=== PATIENT | female | born 1935 | race Caucasian/White ===

== ENCOUNTER 2016-03-06 16:01 | Emergency (ER) | payer OTHER, MEDICARE ==
[~2016-03-06] VITALS: Ht 154.9 cm; Wt 55.3 kg
[~2016-03-06 16:01] MED LIST: FARXIGA5 M1; FLEXERIL 5MG TAB5 MG PO; JARDIANCE10 M1 PO; METFORMIN HCL500 M4 PO; MOEXIPRIL HCL15 MG PO; MOTRIN 600 MG600 MG PO; NEXIUM40 M1 PO; SIMVASTATIN40 M1 PO; VITAMIN D250000 UNIT PO
[2016-03-06 16:17] VITALS: BP 150/64
--- NOTE | 2016-03-06 17:24 | ED GI/GU/ABDOMINAL COMPLAINT ---
History of Present Illness General Chief Complaint: Abdominal Pain/Flank Pain Stated Complaint: ABDOM PAIN Source: patient, family, old records Exam Limitations: no limitations Vital Signs & Intake/Output Vital Signs & Intake/Output Vital Signs Date Time Temp Pulse Resp B/P Pulse O2 O2 Flow FiO2 Ox Delivery Rate 03/06 1617 98.0 65 18 150/64 99 Room Air Allergies Coded Allergies: NO KNOWN ALLERGIES (11/01/12) Reconcile Medications Dapagliflozin Propanediol (Farxiga) (Unknown Strength) TABLET (Unknown Dose) UNKNOWN (Reported) Ergocalciferol (Vitamin D2) (Vitamin D2) 50,000 UNIT CAPSULE 1 CAP PO Q30D SUPPLEMENT (Reported) Esomeprazole (Nexium) 40 MG CAPSULE.DR 1 CAP PO DAILY GI (Reported) Metformin HCl (Metformin HCl ER) 500 MG TAB.ER.24H 2 TAB PO BID DIABETES ( Reported) Moexipril HCl 15 MG TABLET 0.5 TAB PO QPM BP (Reported) Simvastatin (Simvastatin*) 40 MG TABLET 1 TAB PO QPM CHOLESTEROL (Reported) Triage Note: PT TO ED FOR RUQ ABD PAIN SINCE YESTERDAY, REPORTS SHE WAS SEEN IN JANUARY FOR SIMILAR ISSUES, F/U WITH GI OUTPATIENT AND WAS TOLD SHE HAS "SLUDGE". PT REPORTING INTERMITTENT, CRAMPY ABD PAIN, CURRENTLY PAIN FREE. REPORTING TWO EPISODES OF LUDWIG STOOLS LAST NIGHT AND ONE TODAY, REPORTING PAIN IS WORSE AFTER EATING AND BETTER AFTER USING BATHROOM, DENIES BRB, NAUSEA, VOMITING, CP, SOB, MALDONADO. Triage Nurses Notes Reviewed? yes ? N Is pt currently ? No Onset: Gradual Duration: week(s): (FEW) Timing: recent history Quality/Severity: mild Activities at Onset: FOUND ELEVATED LFT'S ON PREVIOUS ED VISIT, FOLLOWING UP WITH DR LEANNE CERDA No Modifying Factors: none Associated Symptoms: LIGHT COLORED STOOLS X 2 DAYS HPI: This is an 80-year-old female presents to the ER with her granddaughter for chief complaint of light colored stools today and yesterday. History of the patient is that she had elevated liver function tests in the end of January. She was seen in the emergency department and taken off her statin medications. After that they followed up with Dr. Cerda in the office approximately 1-1/2 weeks ago although the LFTs are trending down he noted an outpatient CAT scan which showed a potential obstruction between the pancreas and the common bile duct. She states that her grandmother was due to go to custodial for an endoscopic ultrasound but when she had light colored stools today decided to bring her here for evaluation. She states that she put a call in to GI. No fever or chills. Diminished appetite and some malaise. No confusion. Past History Travel History Traveled to [place] past 21 day No Medical History Any Pertinent Medical History? see below for history Neurological: NONE EENT: NONE Cardiovascular: hypertension, hyperlipidemia Respiratory: NONE Gastrointestinal: NONE Hepatic: NONE Renal: NONE Musculoskeletal: OSTEOPOROSIS Psychiatric: NONE Endocrine: diabetes Blood Disorders: NONE Cancer(s): NONE [employer]/Reproductive: NONE Surgical History Surgical History: non-contributory Psychosocial History Who do you live with Patient/Self What is your primary language Gibraltarian Tobacco Use: Never used ETOH Use: denies use Illicit Drug Use: denies illicit drug use Family History Hx Contributory? No Review of Systems Review of Systems Constitutional: Reports: malaise, weakness. Denies: chills, fever. EENTM: Reports: no symptoms. Respiratory: Denies: cough, short of breath, sputum production. Cardiovascular: Denies: chest pain, palpitations. GI: Reports: see HPI (LIGHT STOOLS), abdominal pain, nausea. Denies: vomiting. Genitourinary: Denies: discharge, dysuria, frequency. Musculoskeletal: Reports: no symptoms. Skin: Reports: no symptoms. Neurological/Psychological: Reports: no symptoms. Hematologic/Endocrine: Denies: bruising, bleeding, polyuria, polydipsia. Immunologic/Allergic: Denies: splenectomy. All Other Systems: Reviewed and Negative Physical Exam Physical Exam General Appearance: well developed/nourished, alert, awake, anxious Head: atraumatic, normal appearance Eyes: Bilateral: normal appearance, PERRL, EOMI. Ears, Nose, Throat, Mouth: hearing grossly normal, dental injury, moist mucous membrane Neck: normal inspection, supple, full range of motion Respiratory: normal breath sounds, chest non-tender, no respiratory distress Cardiovascular: regular rate/rhythm Peripheral Pulses: 2+ radial (R), 2+ radial (L) Gastrointestinal: normal bowel sounds, soft, non-tender Extremities: normal range of motion, evidence of injury Neurologic/Psych: no motor/sensory deficits, awake, alert, oriented x 3 Skin: intact, normal color, warm/dry Core Measures ACS in differential dx? No Severe Sepsis Present: No Septic Shock Present: No Progress Differential Diagnosis: CHOLELITHIASIS, CHOLEDOCHOLITHIASIS, PANCREATIC MASS, BILIARY OBSTRUCTION Plan of Care: Orders Procedure Date/time Status EKG 03/06 1735 Active PARTIAL THROMBOPLASTIN TIME 03/06 173 Complete PROTHROMBIN TIME 03/06 173 Complete LIPASE 03/06 173 Complete COMPREHENSIVE METABOLIC PANEL 03/06 1734 Complete CBC WITHOUT DIFFERENTIAL 03/06 1734 Complete CULTURE,URINE 03/06 172 Active URINALYSIS 03/06 1726 Complete Laboratory Tests 03/06/16 1745: Anion Gap 9, Estimated GFR > 60, BUN/Creatinine Ratio 20.0, Glucose 193 H, Calcium 9.3, Total Bilirubin 0.7, AST 45 H, ALT 61 H, Alkaline Phosphatase 465 H, Total Protein 6.7, Albumin 3.6, Globulin 3.1, Albumin/Globulin Ratio 1.2, Lipase 22 L, PT 14.3 H, INR 1.37 H, APTT 36, CBC w Diff NO MAN DIFF REQ, RBC 3.83 L, MCV 86.7, MCH 28.6, RDW 14.2, MPV 8.6, Gran % 75.0, Lymphocytes % 16.4 L, Monocytes % 6.8, Eosinophils % 1.5, Basophils % 0.3, Absolute Granulocytes 6.0, Absolute Lymphocytes 1.3, Absolute Monocytes 0.5, Absolute Eosinophils 0.1, Absolute Basophils 0, PUBS MCHC 33.0 03/06/161729: Urine Color YEL, Urine Clarity CLEAR, Urine pH 6.5, Ur Specific Mercer <= 1.005 , Urine Protein NEG, Urine Ketones NEG, Urine Nitrite NEG, Urine Bilirubin NEG, Urine Urobilinogen 0.2, Ur Leukocyte Esterase TRACE H, Ur Microscopic SEDIMENT EXAMINED, Urine WBC RARE, Ur Epithelial Cells RARE, Urine Hemoglobin NEG, Urine Glucose NEG Microbiology 03/06 1729 URINE ROUT: Urine Culture - [facility] LABS, EKG DONE. LFT'S TRENDING DOWN FROM THE LAST VISIT. NO FEVER, CHILLS OR SIGNS OF INFECTION. DISCUSSED CT RESULTS DONE OUT PATIENT WITH HARRIET'ERIN BLAS. SUSPECT PANCREATIC MASS. PATIENT IS SCHEDULED FOR OUTPATIENT EUS AT [facility]. DISCUSSED WITH DR LEANNE CERDA. (CHIQUIS JEAN,ROSIBEL) Initial ED EKG: NSR Prior EKG: unchanged Departure Departure Time of Disposition: 1850 Disposition: HOME OR SELF CARE Condition: Stable Clinical Impression Primary Impression: Elevated liver function tests Referrals: KAREN JEAN,CATINA Ridley (PCP/Family) SHAILESH CERDA MD Additional Instructions: FOLLOW UP WITH ENDOSCOPIC ULTRASOUND AT [facility] AND THEN WITH DR CERDA IN THE OFFICE. RETURN NEEDED. Departure Forms: Customer Survey General Discharge Information
[2016-03-06 18:03] LABS: ABSOLUTE BASOPHIL COUNT 0 /CUMM (0.0-0.2); ABSOLUTE EOSINOPHIL COUNT 0.1 /CUMM (0.0-0.7); ABSOLUTE LYMPH COUNT 1.3 /CUMM (1.2-3.4); ABSOLUTE MONOCYTE COUNT 0.5 /CUMM (0.10-0.60); BASOPHIL % 0.3 % (0.0-2.0); EOSINOPHIL % 1.5 % (0-5); HEMATOCRIT 33.2 % (37-47); MEAN CORPUSCULAR HGB 28.6 PG (27.0-31.0); MEAN CORPUSCULAR VOLUME 86.7 FL (81.0-99.0); MEAN PLATELET VOLUME 8.6 FL (7.4-10.4); PLATELET COUNT 268 /CUMM (130-400); RBC DISTRIBUTION WIDTH 14.2 % (11.5-14.5); RED BLOOD CELL CT 3.83 /CUMM (4.20-5.40)
[2016-03-06 18:07] LABS: PT 14.3 SEC (9.4-12.5); PTT 36 SEC (25-37)
== END 2016-03-06 19:06 ==
LOC: ERH 16:01
PROVIDERS: Emergency Medicine
DX: R79.89 Other specified abnormal findings of blood chemistry (principal)
CPT/HCPCS: 81001; 87086; 93005; 93010

== ENCOUNTER 2016-05-02 02:13 | Inpatient (IN) | payer OTHER, MEDICARE ==
[~2016-05-02] VITALS: Ht 152.4 cm; Wt 49.0 kg
--- NOTE | 2016-05-02 02:32 | NUR ---
TRIAGE: PT TO ER WITH SON C/C FEVER, ONSET 01:00. SON STATES HIS SISTER CHECKED HER FOR INCONTINENCE AND FOUND HER TO BE FEVERISH. SPOKE WITH DR GRIJALVA WHO ADVISED TO COME TO ER FOR EVAL. PT PMHX INCLUDES PANCREATIC CANCER. SEES DR HYDE AT [facility] FOR TREATMENT. LAST DOSE OF CHEMO WAS ON 04/23/2016.
--- NOTE | 2016-05-02 02:32 | NUR ---
Informed waiting has been performed.
--- NOTE | 2016-05-02 02:41 | NUR ---
PT TO ROOM 3 VIA WHEELCHAIR WITH DAUGHTERS. ASSISTED INTO HOSPITAL GOWN. PT WARM TO TOUCH. FEBRILE IN TRIAGE (101.2).
--- NOTE | 2016-05-02 02:48 | ED GENERAL ADULT ---
History of Present Illness General Chief Complaint: Fever Stated Complaint: PT OF [facility] ON CHEMO SENTIN BY DR GRIJALVA C/O FEVER Source: patient, dada - oncology fellow from [facility] Exam Limitations: no limitations Vital Signs & Intake/Output Vital Signs & Intake/Output Vital Signs Date Time Temp Pulse Resp B/P Pulse O2 O2 Flow FiO2 Ox Delivery Rate 05/04 0716 97.7 61 20 162/66 97 05/03 2223 97.5 61 20 132/72 98 05/03 1458 97.9 68 18 102/51 98 Room Air ED Intake and Output 05/04 0000 05/03 1200 Intake Total 1000 120 Output Total 350 Balance 1000 -230 Intake, Oral 1000 120 Output, Urine 350 Allergies Coded Allergies: NO KNOWN ALLERGIES (05/02/16) dapagliflozin (From FARXIGA) (Intermediate, CONFUSION 05/02/16) Reconcile Medications Dapagliflozin Propanediol (Graveyard Pizzaxiga) (Unknown Strength) TABLET (Unknown Dose) UNKNOWN (Reported) Ergocalciferol (Vitamin D2) (Vitamin D2) 50,000 UNIT CAPSULE 1 CAP PO Q30D SUPPLEMENT (Reported) Esomeprazole (Nexium) 40 MG CAPSULE.DR 1 CAP PO DAILY GI (Reported) Metformin HCl (Metformin HCl ER) 500 MG TAB.ER.24H 2 TAB PO BID DIABETES ( Reported) Moexipril HCl 15 MG TABLET 0.5 TAB PO QPM BP (Reported) Simvastatin (Simvastatin*) 40 MG TABLET 1 TAB PO QPM CHOLESTEROL (Reported) Triage Note: TRIAGE: PT TO ER WITH SON C/C FEVER, ONSET 01:00. SON STATES HIS SISTER CHECKED HER FOR INCONTINENCE AND FOUND HER TO BE FEVERISH. SPOKE WITH DR GRIJALVA WHO ADVISED TO COME TO ER FOR EVAL. PT PMHX INCLUDES PANCREATIC CANCER. SEES DR HYDE AT [facility] FOR TREATMENT. LAST DOSE OF CHEMO WAS ON 04/23/2016. Triage Nurses Notes Reviewed? yes Onset: Abrupt Duration: day(s): (2) Timing: single episode today Injury Environment: home Severity: mild No Modifying Factors: none Associated Symptoms: cough, URINARY FREQUENCY HPI: 80-year-old female with history of locally invasive pancreatic cancer status post chemotherapy on the of presents to the ER with family for chief complaint of fever from home. MAXIMUM TEMPERATURE at home was 102.7. She had one episode of urinary incontinence tonight. They called her oncologist who referred her to the hospital to make sure she wasn't neutropenic. She'll be so nasal congestion but no productive cough. A little bit of nausea but no abdominal pain. Patient is awake alert and oriented. She was feeling well today until this evening when she decided that she was feeling tired and wanted to go to bed. Her daughter was monitoring her noticed that she felt warm and checked a temperature and then brought her in. Past History Travel History Traveled to [place] past 21 day No Medical History Any Pertinent Medical History? see below for history Neurological: NONE EENT: NONE Cardiovascular: hypertension, hyperlipidemia Respiratory: NONE Gastrointestinal: NONE Hepatic: NONE Renal: NONE Musculoskeletal: OSTEOPOROSIS Psychiatric: NONE Endocrine: diabetes Blood Disorders: NONE Cancer(s): pancreatic cancer [employer]/Reproductive: NONE Surgical History Surgical History: non-contributory Psychosocial History Who do you live with Patient/Self What is your primary language Kiswahili Tobacco Use: Never used ETOH Use: denies use Illicit Drug Use: denies illicit drug use Family History Hx Contributory? No Review of Systems Review of Systems Constitutional: Reports: fever, malaise, weakness. Denies: chills. EENTM: Reports: no symptoms. Respiratory: Reports: cough. Denies: short of breath. Cardiovascular: Denies: chest pain. GI: Denies: abdominal pain, nausea, vomiting. Genitourinary: Denies: dysuria. Musculoskeletal: Reports: no symptoms. Skin: Denies: erythema, rash. Neurological/Psychological: Reports: no symptoms. Hematologic/Endocrine: Reports: polyuria. Denies: bleeding. Immunologic/Allergic: Denies: splenectomy. All Other Systems: Reviewed and Negative Physical Exam Physical Exam General Appearance: alert, awake, mild distress, thin Head: atraumatic, active bleeding Eyes: Bilateral: PERRL. Ears, Nose, Throat: DRY MUCUS MEMBRANES Neck: normal inspection, supple, full range of motion Respiratory: decreased breath sounds Cardiovascular: regular rate/rhythm Peripheral Pulses: 2+ radial (R), 2+ radial (L) Gastrointestinal: soft, non-tender Extremities: normal inspection, normal capillary refill, normal range of motion, no edema Neurologic/Psych: awake, alert Skin: intact, normal color, warm/dry Core Measures ACS in differential dx? No CVA/TIA Diagnosis: No Severe Sepsis Present: No Septic Shock Present: No ED Sepsis Exam Date of Focused Sepsis Exam: 05/02/16 Time of Focused Sepsis Exam: 0245 Sepsis Cardiac Exam: Regular Rate/Rhythm Sepsis Resp Exam: DIMINISHED BS Sepsis Cap Refill Exam: <2 Sec Sepsis Peripheral Pulse Exam: Normal Sepsis Peripheral Pulse Location: Radial Sepsis Skin Color Exam: Pale Skin Temp/Moisture Exam: Warm/Dry Progress Differential Diagnoses I considered the following diagnoses in my evaluation of the patient: [UTI, PNEUMONIA, SEPSIS, COLEEN, DEHYDRATION] Plan of Care: Orders Procedure Date/time Status CT CHEST WO IV CONTRAST 05/04 0800 Active PT Evaluate & Treat 05/04 UNK Active INCENTIVE SPIROMETRY TRX CHG 05/02 UNK Complete Current Medications Sig/Maxim Start time Last Medication Dose Stop Time Status Admin Amoxicillin/ 875 MG Q12 05/04 1000 AC Clavulanate Potassium (Augmentin) Ibuprofen 400 MG TID PRN 05/02 0530 AC (Motrin) Morphine Sulfate 1 MG Q4 PRN 05/02 0530 AC (Morphine) Oxycodone HCl 5 MG Q6 PRN 05/02 0530 AC (Roxicodone) EKG, LABS, CULTURES, FLU SWAB, TELE MONITOR, CXR ORDERED. URINALYSIS ORDERED. IV FLUIDS, IV TYLENOL ORDERED. CXR C/W PNEUMONIA. IV ABX ORDERED. NO NEUTROPENIA. D/W HOSPITALIST FOR ADMISSION. (CHIQUIS JEAN,ROSIBEL) Diagnostic Imaging: Viewed by Me: Radiology Read. Discussed w/RAD: Radiology Read. Initial ED EKG: sinus tachycardia at 101 bpm, inferior Q Prior EKG: unchanged Comments: PATIENT: HARRIS SANTAMARIA PRESENT AGE: 80 PATIENT ACCOUNT NO: [id number] : 33 LOCATION: [facility] ORDERING PHYSICIAN: ROSIBEL SIM MD SERVICE DATE: 05/02/16 EXAM TYPE: RAD - XRY-CHEST XRAY, PA AND LATERAL EXAMINATION: XR CHEST CLINICAL INFORMATION: Fever. On chemotherapy. COMPARISON: 02/03/2016 TECHNIQUE: AP upright view of the chest FINDINGS: Low lung volumes. Hazy right basilar medial opacity. No pleural effusion or pneumothorax. The cardiomediastinal silhouette is unremarkable. IMPRESSION: Low lung volumes with hazy right basilar medial opacity which could represent atelectasis or pneumonia. DICTATED BY: EDMOND JEAN,ZI DATE/TIME DICTATED:05/02/16 035Diego EVENT MGR:LINN DATE/TIME TRANSCRIBED:05/02/16 / 0359 CONFIDENTIAL, DO NOT COPY WITHOUT APPROPRIATE AUTHORIZATION. <Electronically signed in Other Vendor System> SIGNED BY: ZI PRUITT MD 05/02 Departure Departure Time of Disposition: 431 Disposition: STILL A PATIENT Condition: Stable Clinical Impression Primary Impression: Pneumonia Secondary Impressions: Fever, Lactic acid acidosis Referrals: CATINA JONES MD (PCP/Family) Departure Forms: Customer Survey General Discharge Information Admission Note Spoke With: CATINA JONES MD Documentation of Exam: Documentation of any treatments & extenuating circumstances including Concerns Regarding Discharge (functional status, medication knowledge or non-compliance, living conditions, etc.) that warrant an admission rather than observation: [IV FLUIDS, IV ABX, MONITOR I/O, REPEAT LACTIC ACID, F/U BLOOD CULTURES, CONSIDER ONCOLOGY CONSULTATION] Critical Care Note Critical Care Note Critical Care Time: non-applicable
[2016-05-02 03:16] LABS: ABSOLUTE BASOPHIL COUNT 0 /CUMM (0.0-0.2); ABSOLUTE EOSINOPHIL COUNT 0 /CUMM (0.0-0.7); ABSOLUTE GRANULOCYTE CT 7.9 /CUMM (1.4-6.5); ABSOLUTE LYMPH COUNT 0.6 /CUMM (1.2-3.4); ABSOLUTE MONOCYTE COUNT 1.4 /CUMM (0.10-0.60); BASOPHIL % 0.1 % (0.0-2.0); EOSINOPHIL % 0 % (0-5); GRANULOCYTE % 79.6 % (42.2-75.2); HEMATOCRIT 28.6 % (37-47); MEAN CORPUSCULAR HGB 27.6 PG (27.0-31.0); MEAN CORPUSCULAR HGB CONC 33.3 G/DL (33.0-37.0); MEAN CORPUSCULAR VOLUME 82.9 FL (81.0-99.0); MEAN PLATELET VOLUME 7.7 FL (7.4-10.4); PLATELET COUNT 481 /CUMM (130-400); RBC DISTRIBUTION WIDTH 14.9 % (11.5-14.5); RED BLOOD CELL CT 3.45 /CUMM (4.20-5.40); WHITE BLOOD CELL COUNT 9.9 /CUMM (4.8-10.8)
--- NOTE | 2016-05-02 03:20 | NUR ---
PT MEDICATED WITH IV TYLENOL AND NS 500CCS INFUSING CURRENTLY PER EMAR. PT TOLERATING WELL.
[2016-05-02 03:35] LABS: PT 17.8 SEC (9.4-12.5); PTT 34 SEC (25-37)
--- NOTE | 2016-05-02 03:36 | NUR ---
PT STRAIGHT CATH'D FOR URINE SAMPLE PER REQUEST. APPROX 400 CC'S DARK TEA COLORED URINE OUTPUT. PT TOLERATED WELL. URINE TRIO SENT TO LAB.
--- NOTE | 2016-05-02 03:37 | NUR ---
CRITICAL TEST RESULTS [id number] HARRIS SANTAMARIA 80 F TESTS AND RESULTS: LACTIC ACID 4.5 Results received and read back by: JESSE CAMARENA Results received date and time: 05/02/16336 The following provider was notified of the results, and read the results back: Notified date and time: 05/02/16 at 7533
--- NOTE | 2016-05-02 03:58 | NUR ---
SECOND 500CC BAG OF NS INFUSING AT THIS TIME PER EMAR.
--- NOTE | 2016-05-02 04:03 | RADIOLOGY REPORT ---
EXAMINATION: XR CHEST CLINICAL INFORMATION: Fever. On chemotherapy. COMPARISON: 02/03/2016 TECHNIQUE: AP upright view of the chest FINDINGS: Low lung volumes. Hazy right basilar medial opacity. No pleural effusion or pneumothorax. The cardiomediastinal silhouette is unremarkable. IMPRESSION: Low lung volumes with hazy right basilar medial opacity which could represent atelectasis or pneumonia.
--- NOTE | 2016-05-02 04:39 | NUR ---
PT MEDICATED WITH ZITHROMAX PER EMAR.
--- NOTE | 2016-05-02 05:03 | NUR ---
PT IV INFILTRATED <1 IN EDEMA. IV DISCONTINUED AND NEW IV PLACED #22 LFA.
--- NOTE | 2016-05-02 05:33 | NUR ---
HOUSE STAFF AT BEDSIDE
--- NOTE | 2016-05-02 05:51 | History & Physical ---
ELIANA JEAN,[facility] 05/02/16 0551: General Information and HPI MD Statement: I have seen and personally examined HARRIS SANTAMARIA and documented this H&P. The patient is a 80 year old F who presented with a patient stated chief complaint of fevers. Source of Information: patient, family Exam Limitations: language barrier History of Present Illness: This is a 80-year-old very pleasant [place] lady with a past medical history of hyperlipidemia, hypertension, osteopenia, pancreatic cancer on chemotherapy with last chemotherapy on 04/23/2016 resents to [place] ED after being sent in by her oncologist for evaluation of fevers. Patient mostly speaks [place], understands but is not able to conversate in Bulgarian. The history taking was obtained from daughter (visiting from [place]) who was at her bedside. Patient's daughter reports that for the past 2-3 days, patient has been feeling nauseous, complained of chills and had generalized weakness. Yesterday, patient was reported to have had fevers with a Tmax of 102.7. Patient family then decided to call Dr. [facility](oncologist) who recommended that patient be sent to the hospital for evaluation. Patient denies any cough, rhinorrhea, sore throat, any recent URI, sick contacts, recent travel abdominal pain, or dysuria. Patient also denies any vision changes, headaches, dizziness, any neurological deficit, chest pain, palpitations, or musculoskeletal pain. At baseline, patient lives alone and is independent with her ADLs, ambulates freely without any walking aid, and has a chronic poor oral intake eating very small meals. Allergies/Medications Allergies: Coded Allergies: NO KNOWN ALLERGIES (05/02/16) Home Med list Dapagliflozin Propanediol (Farxiga) (Unknown Strength) TABLET (Unknown Dose) UNKNOWN (Reported) Ergocalciferol (Vitamin D2) (Vitamin D2) 50,000 UNIT CAPSULE 1 CAP PO Q30D SUPPLEMENT (Reported) Esomeprazole (Nexium) 40 MG CAPSULE.DR 1 CAP PO DAILY GI (Reported) Metformin HCl (Metformin HCl ER) 500 MG TAB.ER.24H 2 TAB PO BID DIABETES ( Reported) Moexipril HCl 15 MG TABLET 0.5 TAB PO QPM BP (Reported) Simvastatin (Simvastatin*) 40 MG TABLET 1 TAB PO QPM CHOLESTEROL (Reported) Past History Travel History Traveled to [place] past 21 day No Medical History Neurological: NONE EENT: NONE Cardiovascular: hypertension, hyperlipidemia Respiratory: NONE Gastrointestinal: NONE Hepatic: NONE Renal: NONE Musculoskeletal: OSTEOPOROSIS Psychiatric: NONE Endocrine: diabetes Blood Disorders: NONE Cancer(s): pancreatic cancer PROCUREMENT COST COORDINATOR/Reproductive: NONE Surgical History Surgical History: non-contributory Past Family/Social History Psychosocial History ETOH Use: denies use Illicit Drug Use: denies illicit drug use Review of Systems Review of Systems Constitutional: Reports: see HPI. EENTM: Reports: no symptoms. Cardiovascular: Reports: no symptoms. Respiratory: Reports: no symptoms. GI: Reports: no symptoms. Genitourinary: Reports: no symptoms. Musculoskeletal: Reports: no symptoms. Skin: Reports: no symptoms. Neurological/Psychological: Reports: no symptoms. Hematologic/Endocrine: Reports: no symptoms. Immunologic/Allergic: Reports: no symptoms. Exam & Diagnostic Data Last 24 Hrs of Vital Signs/I&O Vital Signs Date Time Temp Pulse Resp B/P Pulse O2 O2 Flow FiO2 Ox Delivery Rate 05/02 0442 98.0 05/02 0431 98.0 83 20 103/55 96 Room Air 05/02 0331 101.2 05/02 0227 101.2 108 20 99/59 98 Room Air Intake & Output 05/02 0800 05/02 0000 05/01 1600 Intake Total 500 Output Total 400 Balance 100 Intake, IV 500 Output, Urine 400 Patient 48.988 kg Weight Physical Exam General Appearance Alert, Oriented X3, Cooperative, mildly cachetic Skin No Significant Lesion HEENT Atraumatic Neck Supple, No JVD, No thryomegaly Lymphatic Cervical nl Cardiovascular Regular Rate, Normal S1, Normal S2, No Murmurs, Gallops Lungs Clear to Auscultation, Normal Air Movement Abdomen Normal Bowel Sounds, Soft, No Tenderness, No Hepatospenomegaly Neurological Normal Speech, Normal Tone, Sensation Intact Extremities Normal Pulses, No Tenderness/Swelling Vascular Pulses Symmetrical Assessment/Plan Assessment: This is a 80-year-old very pleasant [place] lady with a history of hypertension, hyperlipidemia, pancreatic cancer on chemotherapy with last chemotherapy April 23 presents for evaluation of fevers. Home Tmax reported to be 102.7. ED vitals were remarkable for temperature of 101.2, heart rate of 108 respiration of 20, heart pressure of 99/89, with saturation of 98% on room air. No leukocytosis was noted and patient was not neutropenic either. She however exhibited elevated lactic acid of 4.5, elevated bilirubin of 1.7, elevated AST of 134 and elevated ALT of 101, and elevated alkaline phosphatase of 78. Radiological findings with chest x-ray was remarkable for right basilar medial opacity with suggestion of either pneumonia versus atelectasis. Assessment and plan #Sepsis Patient met sepsis criteria with elevated temperature (101.2), tachycardia (108) and radiological finding suggestive of pneumonia. Plan We'll admit to general medicine Status post 1 L normal saline, will continue with gentle hydration of 75 mL per hour s/p 1 dose of azithromycin and ceftriaxone, will continue this regimen for coverage for community acquired pneumonia Will follow up on blood cultures Will follow-up on urine antigen for strep and legionella #Lactic acidosis Secondary to sepsis and dehydration. Plan Continue hydration Will trend lactic acid every 3 until normalizes #Transaminitis Etiology includes stress-induced versus statin induced versus possible metastases. Plan Will consider RUQ Will trend LFTs In the setting of transaminitis will hold off statin for now #History of hypertension Patient family reports recent episodes of hypotension secondary to chemotherapy with PCP holding off somewhat the BP meds. Patient also presents with a borderline low BP reading prior to hydration. Plan We'll hold off all BP meds in the setting of low BP and sepsis #History of pancreatic malignancy and on chemotherapy Patient had a schedule chemotherapy session today prior to being admitted. Plan Will you to contact Dr. Bradley #History of diabetes NovoLog sliding scale Accu-Cheks 3 times a day and bedtime As Ranked By This Provider Problem List: 1. Lactic acid acidosis 2. Pneumonia Core Measures/Miscellaneous Acute Coronary Syndrome ACS Diagnosis: No Cerebrovascular Accident CVA/TIA Diagnosis: No Congestive Heart Failure CHF Diagnosis: No Venous Thromboembolism VTE Risk Factors: Age > 40 No [facility] VTE prophylaxis d/t: No contraindications No VTE Pharm Prophylaxis d/t: No contraindications VTE Diagnosis: No VTE Type: NONE VTE Confirmed by (Test): NONE Severe Sepsis Severe Sepsis Present: No Septic Shock Septic Shock Present: No Miscellaneous Documentation Attending Case Discussed With: CATINA JONES MD Primary Care Physician: CATINA JONES MD Patient sees these Specialists oncology Level of Patient Care: General Medicine RODRIGO BURGOS 05/02/16 0608: Resident Review Statement Resident Statement: examined this patient, discussed with landscape maintenance internship Other Findings: Patient is a 80-year-old female with past medical history of hypertension, hyperlipidemia, osteopenia, pancreatic cancer status post chemotherapy(last chemotherapy on 04/23/2016) presented to the ER with a chief complaint of fever and chills from home. The patient is [place] and speaks little Bulgarian. Most of the history is obtained from the daughter. Family states that the patient has been having fevers at home since the past 1 day. The maximum temperature was 102.7. She has been feeling weak, chilly and nauseous for the past 2 days. Since she looked sick and her body was hot, the daughter took her temperature. Denied any significant cough, headaches, sinus congestion, sick contacts, recent travel. The family called her oncologist Dr. Horne at [place] who recommended them to come to the hospital to make sure she was not neutropenic. Patient had her last chemotherapy on 04/23/2016. Patient denies any chest pain,palpitation abdominal pain, urinary or bowel symptoms. She has poor by mouth intake as per the family. Her PCP is Dr. Jones. Daughter states that for the past few days her blood pressure has been running a little low and her BP meds were held for that. At baseline, patient lives by herself and is able and independent in all her activities. Her daughter is currently visiting with her from [place]. She is nonsmoker, nondrinker. She had a flu shot this year. In the ER vitals temperature 101.2, pulse 108, respiration 20, blood pressure 99 /59, saturating 98% on room air. Significant labs showed a normal white count, H&H 9.5/28.6, sodium 129, lactic acid 4.5, total bili 1.7, AST 134, ALT 101, alkaline phosphatase 782. UA benign Chest x-ray showed hazy right basilar medial opacity questionable pneumonia/ atelectasis Physical exam: Gen.: Cachectic looking, in no acute distress HEENT: PERRLA, EOMI Chest: Good air entry, no adventitious sounds CVS: S1 and S2 heard, no murmurs Abdomen: Bowel sounds positive, no tenderness/guarding/rigidity Extremities: No edema, pulses intact Plan: 1.Sepsis(fever, tachycardia 2/2 pneumonia) secondary to community-acquired pneumonia. Patient is not neutropenic, immunocompromised/recent chemotherapy. Responded to fluid bolus in ED. -Admit to [facility] -Vitals every shift -Keep oxygen saturations above 92% -TRC as needed -Gentle hydration with IV fluids at 75 mL an hour X 1 bag -Lactic elevated at presentation, we will trend lactic to late normalizes -IV ceftriaxone and IV azithromycin -Motrin for fever -Urine strep and Legionella antigen -Blood, sputum cultures -Flu swab was negative -Consult pulm if symptoms don't improve 2. Transaminitis? Secondary to obstruction due to pancreatic cancer -Holding simvastatin 3. Hypertension -Holding all meds due to sepsis at this point. 4. Diabetes mellitus -3 times a day Accu-Cheks -NovoLog sliding scale -OHA's held -Diabetic diet 5. History of pancreatic cancer status post chemotherapy -Last chemotherapy on 04/23/2016 -Patient was scheduled for chemotherapy today which was canceled -Please touch base with patients oncologist Dr. Horne regarding rescheduling her chemotherapy. DVT prophylaxis subcutaneous Lovenox Full code Mild pain pathway
--- NOTE | 2016-05-02 06:10 | NUR ---
REPORT GIVEN TO ERICK ON 2NB
[2016-05-02 06:30] VITALS: BP 104/58
--- NOTE | 2016-05-02 08:16 | Admission Certification ---
See Addendum Admission Certification Certification Statement - As attending physician, I certify that at the time of - admission, based on clinical presentation, severity of - symptoms, need for further diagnostic testing and - therapeutic interventions, and risk of adverse outcomes - without in-hospital treatment, in my clinical assessment, - this patient requires an acute hospital stay for a minimum - of two nights or longer. I have also considered psychsocial - factors such as support system, advanced age, financial - issues, cognitive issues, and failed out-patient treatments, - past re-admission history, safety of patient, and lack of - compliance as applicable. Specific rationale supporting this admission is: Admitted for fever with chills on a lady who is undergoing chemotherapy for pancreatic cancer immunocompromised admitted for IV antibiotics for pneumonia.
--- NOTE | 2016-05-02 08:26 | PN- Att Addend ---
Attending Addendum Attending Brief Note Attending note. 80 years old lady with a history of recent history of pancreatic cancer early stages on chemotherapy last chemotherapy was on April 23 presents to the ER with a complaint of fever with chills. Melrude temperature was 102-103 patient does not complain of any abdominal pain but complains of some mild cough and discomfort. Physical very weak and tired mild shortness of breath. Patient known well known to me with the past medical history of diabetes hypertension dyslipidemia fairly stable until recently when she was diagnosed with pancreatic cancer. lost considerable amount of weight since she was diagnosed with pancreatic cancer. Current Medications Sig/Maxim Start time Last Medication Dose Route Stop Time Status Admin Acetaminophen 325 MG Q6 PRN 05/02 0530 CAN PO Acetaminophen 0 .STK-MED ONE 05/02 0312 DC IV Acetaminophen 1,000 MG ONCE ONE 05/02 0300 DC 05/02 N/A 1 UNIT IV 05/02 0314 0331 Atorvastatin Calcium 40 MG 1700 05/02 1700 CAN PO Azithromycin 500 MG DAILY 05/02 1000 AC Dextrose/Water 250 ML IV Azithromycin 500 MG ONCE ONE 05/02 0415 DC 05/02 Dextrose/Water 250 ML IV 05/02 0514 0439 Ceftriaxone Sodium 1,000 MG DAILY 05/02 1000 AC IV Ceftriaxone Sodium 0 .STK-MED ONE 05/02 0403 DC .ROUTE Ceftriaxone Sodium 1,000 MG ONCE ONE 05/02 0400 DC 05/02 IV 05/02 0401 0409 Enoxaparin Sodium 40 MG DAILY 05/02 1000 AC SC Ibuprofen 400 MG TID PRN 05/02 0530 AC PO Insulin Aspart 0 TIDAC 05/02 0800 AC SC Morphine Sulfate 1 MG Q4 PRN 05/02 0530 AC IV Oxycodone HCl 5 MG Q6 PRN 05/02 0530 AC PO Sodium Chloride 1,000 ML Q13H 05/02 0615 AC 05/02 IV 05/02 1914 0710 Sodium Chloride 500 ML BOLUS ONE 05/02 0345 DC 05/02 IV 05/02 0444 0359 Sodium Chloride 500 ML BOLUS ONE 05/02 0300 DC 05/02 IV 05/02 0359 0331 Vital Signs Date Time Temp Pulse Resp B/P Pulse O2 O2 Flow FiO2 Ox Delivery Rate 05/02 06 97.7 78 18 104/58 96 Room Air 05/02 0442 98.0 05/02 0431 98.0 83 20 103/55 96 Room Air 05/02 0331 101.2 05/02 0227 101.2 108 20 99/59 98 Room Air Intake & Output 05/02 1600 05/02 0800 05/02 0000 Intake Total 500 Output Total 400 Balance 100 Intake, IV 500 Output, Urine 400 Patient 108 lb Weight Negative admission patient is lying comfortably in bed. Patient looks ill she has lost some weight since I last seen her. Awake alert oriented 3 Mucous membrane is dry neck is supple Conjunctivae is pink sclerae is anicteric JVD is not raised S1-S2 is normal Lungs fine crackles at both bases Abdomen is soft mildly tenderness in the epigastric area Bowel sounds are present. No focal neurological deficit Patient has no calf tenderness present. Laboratory Tests 05/02 05/02 05/02 0545 0329 0317 Chemistry Lactic Acid (0.7 - 2.1 mmol/L) 4.2 H Serology Virus Culture Pending Urines Urine Color (YEL,AMB,STR) YEL Urine Clarity (CLEAR) CLEAR Urine pH (5.0 - 8.0) 6.0 Ur Specific [place] (1.001 - 1.035) 1.020 Urine Protein (NEG,<30 MG/DL) TRACE H Urine Ketones (NEG) NEG Urine Nitrite (NEG) NEG Urine Bilirubin (NEG) NEG Urine Urobilinogen (0.1 - 1.0 EU/dl) 2.0 H Ur Leukocyte Esterase (NEG) NEG Ur Microscopic SEDIMENT EXAMINED Urine RBC (0 - 5 /HPF) RARE Urine WBC (0 - 2 /HPF) RARE Ur Epithelial Cells (NONE,FEW) FEW Urine Bacteria (NEG/NONE) RARE H Urine Mucus (FEW,NONE) FEW Urine Hemoglobin (NEG) NEG Urine Glucose (N MG/DL) NEG 05/02 05/02 0310 0304 Chemistry Sodium (137 - 145 mmol/L) 129 L Potassium (3.5 - 5.1 mmol/L) 4.2 Chloride (98 - 107 mmol/L) 92 L Carbon Dioxide (22 - 30 mmol/L) 24 Anion Gap (5 - 16) 13 BUN (7 - 17 mg/dL) 11 Creatinine (0.5 - 1.0 mg/dL) 0.6 Estimated GFR (>60 ml/min) > 60 BUN/Creatinine Ratio (7 - 25 %) 18.3 Glucose (65 - 99 mg/dL) 209 H Lactic Acid (0.7 - 2.1 mmol/L) 4.5 H Calcium (8.4 - 10.2 mg/dL) 9.3 Total Bilirubin (0.2 - 1.3 mg/dL) 1.7 H AST (14 - 36 U/L) 134 H ALT (9 - 52 U/L) 101 H Alkaline Phosphatase (<127 U/L) 782 H Total Protein (6.3 - 8.2 g/dL) 6.4 Albumin (3.5 - 5.0 g/dL) 3.1 L Globulin (1.9 - 4.2 gm/dL) 3.3 Albumin/Globulin Ratio (1.1 - 2.2 %) 0.9 L Coagulation PT (9.4 - 12.5 SEC) 17.8 H INR (0.90 - 1.19) 1.70 H APTT (25 - 37 SEC) 34 Hematology CBC w Diff NO MAN DIFF REQ WBC (4.8 - 10.8 /CUMM) 9.9 RBC (4.20 - 5.40 /CUMM) 3.45 L Hgb (12.0 - 16.0 G/DL) 9.5 L Hct (37 - 47 %) 28.6 L MCV (81.0 - 99.0 FL) 82.9 MCH (27.0 - 31.0 PG) 27.6 RDW (11.5 - 14.5 %) 14.9 H Plt Count (130 - 400 /CUMM) 481 H MPV (7.4 - 10.4 FL) 7.7 Gran % (42.2 - 75.2 %) 79.6 H Lymphocytes % (20.5 - 51.1 %) 6.2 L Monocytes % (1.7 - 9.3 %) 14.1 H Eosinophils % (0 - 5 %) 0 Basophils % (0.0 - 2.0 %) 0.1 Absolute Granulocytes (1.4 - 6.5 /CUMM) 7.9 H Absolute Lymphocytes (1.2 - 3.4 /CUMM) 0.6 L Absolute Monocytes (0.10 - 0.60 /CUMM) 1.4 H Absolute Eosinophils (0.0 - 0.7 /CUMM) 0 Absolute Basophils (0.0 - 0.2 /CUMM) 0 PUBS MCHC (33.0 - 37.0 G/DL) 33.3 Microbiology Date/Time Procedure - Status Source Growth 05/02 328 Legionella Antigen - COMP URINE ROUT 05/02 328 Streptococcus pneumoniae Antigen (M - COMP URINE ROUT 05/02 328 Respiratory Culture - ORD LOWER RESP 05/02 328 Gram Stain - ORD LOWER RESP 05/02 316 Influenza Virus A & B Rapid Smear - COMP NASOPHARYN 05/02 314 Blood Culture - RECD BLOOD 05/02 309 Blood Culture - RECD BLOOD Chest x-ray shows right basilar opacity. Assessment Patient has got sepsis with tachycardia in immunocompromised patient is having chemotherapy for pancreatic cancer. Minimal respiratory symptoms but chest x-ray shows right basilar opacity Start the patient on the IV antibiotics IV ceftriaxone and Zithromax of troponins some blood cultures and sputum cultures Continue with oxygen supplementation Continue with IV hydration Lactic acidosis secondary to sepsis and dehydration Elevation of transaminases secondary to lesion in the head of the pancreas of uncertain a common bile duct. Weight loss secondary to his ectatic cancer and chemotherapy. History of diabetes. Monitor her glucose and cover with sliding scale DVT prophylaxis
--- NOTE | 2016-05-02 08:37 | NUR ---
PT ARRIVED TO FLOOR @ 0640 VIA STRETCHER WITH DISTRIBUTION STAFF. PT ABLE TO AMBULATE WITH ASSISTx1. VSS, RA, CLEAR LUNG SOUNDS IN ALL QUADRANTS, PAIN 0/10, T 97.7. ALPS PER ORDER, IVF PER ORDER, BED ALARM AND FALL PRECAUTIONS IN PLACE. PT IS PRIMARILY MALAWIAN SPEAKER BUT IS ABLE TO UNDERSTAND AND FOLLOW DIRECTIONS. FAMILY AT BEDSIDE FOR SUPPORT. CALL ALEX IN REACH. WILL CONTINUE TO MONITOR.
[2016-05-02 14:43] VITALS: BP 100/54
--- NOTE | 2016-05-02 15:40 | NUR ---
NURSING NOTE: LAB WORK NOTED THAT AM LACTIC ACID WAS HIGH AT 4.2 AND NEVER RE-DRAWN. BEAD TRIMMER NOTIFIED AT THIS TIME TIME TO GET ANOTHER LAB DRAWN NOW. THIS INFORMATION PASSED ON TO ONCOMING NURSE.
[2016-05-02 22:11] VITALS: BP 103/52
[2016-05-03 06:21] VITALS: BP 104/48
[2016-05-03 08:16] LABS: ABSOLUTE BASOPHIL COUNT 0 /CUMM (0.0-0.2); ABSOLUTE EOSINOPHIL COUNT 0.1 /CUMM (0.0-0.7); ABSOLUTE GRANULOCYTE CT 5.6 /CUMM (1.4-6.5); ABSOLUTE LYMPH COUNT 1.1 /CUMM (1.2-3.4); ABSOLUTE MONOCYTE COUNT 1.1 /CUMM (0.10-0.60); BASOPHIL % 0.4 % (0.0-2.0); EOSINOPHIL % 0.9 % (0-5); GRANULOCYTE % 71.2 % (42.2-75.2); HEMATOCRIT 28.8 % (37-47); MEAN CORPUSCULAR HGB 27.7 PG (27.0-31.0); MEAN CORPUSCULAR HGB CONC 33.1 G/DL (33.0-37.0); MEAN CORPUSCULAR VOLUME 83.7 FL (81.0-99.0); MEAN PLATELET VOLUME 8.2 FL (7.4-10.4); PLATELET COUNT 458 /CUMM (130-400); RBC DISTRIBUTION WIDTH 15.3 % (11.5-14.5); RED BLOOD CELL CT 3.44 /CUMM (4.20-5.40); WHITE BLOOD CELL COUNT 7.9 /CUMM (4.8-10.8)
--- NOTE | 2016-05-03 08:40 | PN- Att Addend ---
Attending Addendum Attending Brief Note Attending note. Patient feels more alert feels a lot better her cough and respiratory symptoms are markedly decreased Current Medications Sig/Maxim Start time Last Medication Dose Route Stop Time Status Admin Azithromycin 500 MG DAILY 05/02 1000 AC Dextrose/Water 250 ML IV Ceftriaxone Sodium 1,000 MG DAILY 05/02 1000 AC IV Enoxaparin Sodium 40 MG DAILY 05/02 1000 AC 05/02 SC 1231 Ibuprofen 400 MG TID PRN 05/02 0530 AC PO Insulin Aspart 0 TIDAC 05/02 0800 AC 05/02 SC 1635 Morphine Sulfate 1 MG Q4 PRN 05/02 0530 AC IV Omeprazole 20 MG DAILY AC 05/02 1108 AC 05/03 PO 0629 Oxycodone HCl 5 MG Q6 PRN 05/02 0530 AC PO Sodium Chloride 1,000 ML Q13H 05/02 0615 DC 05/02 IV 05/02 1914 0710 Vital Signs Date Time Temp Pulse Resp B/P Pulse O2 O2 Flow FiO2 Ox Delivery Rate 05/03 0621 98.2 63 18 104/48 96 Room Air 05/03 0000 Room Air 05/02 2211 97.3 74 19 103/52 96 Room Air 05/02 1443 98.4 92 20 100/54 97 Room Air 05/02 1432 Room Air Room Air Intake & Output 05/03 1600 05/03 0800 05/03 0000 Intake Total 120 950 Output Total 350 800 Balance -230 150 Intake, IV 600 Intake, Oral 120 350 Output, Urine 350 800 Laboratory Tests 05/03 05/02 05/02 05/02 0624 2225 1930 1635 Chemistry Sodium Pending Potassium Pending Chloride Pending Carbon Dioxide Pending Anion Gap Pending BUN Pending Creatinine Pending BUN/Creatinine Ratio Pending Lactic Acid (0.7 - 2.1 mmol/L) 2.1 2.5 H 3.5 H Hematology CBC w Diff NO MAN DIFF REQ WBC (4.8 - 10.8 /CUMM) 7.9 RBC (4.20 - 5.40 /CUMM) 3.44 L Hgb (12.0 - 16.0 G/DL) 9.5 L Hct (37 - 47 %) 28.8 L MCV (81.0 - 99.0 FL) 83.7 MCH (27.0 - 31.0 PG) 27.7 RDW (11.5 - 14.5 %) 15.3 H Plt Count (130 - 400 /CUMM) 458 H MPV (7.4 - 10.4 FL) 8.2 Gran % (42.2 - 75.2 %) 71.2 Lymphocytes % (20.5 - 51.1 %) 14.1 L Monocytes % (1.7 - 9.3 %) 13.4 H Eosinophils % (0 - 5 %) 0.9 Basophils % (0.0 - 2.0 %) 0.4 Absolute Granulocytes (1.4 - 6.5 /CUMM) 5.6 Absolute Lymphocytes (1.2 - 3.4 /CUMM) 1.1 L Absolute Monocytes (0.10 - 0.60 /CUMM) 1.1 H Absolute Eosinophils (0.0 - 0.7 /CUMM) 0.1 Absolute Basophils (0.0 - 0.2 /CUMM) 0 PUBS MCHC (33.0 - 37.0 G/DL) 33.1 Assessment Patient was admitted with high fever with very minimal respiratory symptoms chest x-ray revealed right basilar opacity. Obtain a CT scan of the chest tomorrow Continue with the antibiotics switched to by mouth antibiotics Prepare patient for discharge start ambulating the patient continue with DVT prophylaxis..
--- NOTE | 2016-05-03 10:06 | PN- Housestaff ---
Subjective Follow-up For: Pneumonia Pancreatic cancer on chemotherapy Lactic acidosis Subjective: Afebrile, stable, white blood cell within normal limits. Laying on bed looks relaxed and comfortable. No acute events reported. Saturating well on room air. Patient will most likely get discharge tomorrow. Review of Systems Constitutional: Reports: no symptoms. Objective Last 24 Hrs of Vital Signs/I&O Vital Signs Date Time Temp Pulse Resp B/P Pulse O2 O2 Flow FiO2 Ox Delivery Rate 05/03 1458 97.9 68 18 102/51 98 Room Air 05/03 0621 98.2 63 18 104/48 96 Room Air 05/03 0000 Room Air 05/02 2211 97.3 74 19 103/52 96 Room Air Intake & Output 05/03 1600 05/03 0800 05/03 0000 Intake Total 1000 120 950 Output Total 350 800 Balance 1000 -230 150 Intake, IV 600 Intake, Oral 1000 120 350 Output, Urine 350 800 Physical Exam General Appearance: Alert, Oriented X3, Cooperative, No Acute Distress Skin: No Rashes HEENT: Atraumatic, PERRLA, EOMI, Mucous Membr. moist/pink Cardiovascular: Regular Rate, Normal S1, Normal S2, mild murmur Lungs: Clear to Auscultation Abdomen: Soft, No Tenderness Neurological: Normal Speech Extremities: No Edema Current Medications: Current Medications Sig/Maxim Start time Last Medication Dose Route Stop Time Status Admin Azithromycin 500 MG DAILY 05/02 1000 AC 05/03 Dextrose/Water 250 ML IV 0908 Ceftriaxone Sodium 1,000 MG DAILY 05/02 1000 AC 05/03 IV 0908 Enoxaparin Sodium 40 MG DAILY 05/02 1000 AC 05/03 SC 0908 Ibuprofen 400 MG TID PRN 05/02 0530 AC PO Insulin Aspart 0 TIDAC 05/02 0800 AC 05/03 SC 1129 Morphine Sulfate 1 MG Q4 PRN 05/02 0530 AC IV Omeprazole 20 MG DAILY AC 05/02 1108 AC 05/03 PO 0629 Oxycodone HCl 5 MG Q6 PRN 05/02 0530 AC PO Sodium Chloride 1,000 ML Q13H 05/02 0615 DC 05/02 IV 05/02 1914 0710 Last 24 Hrs of Lab/Ramirez Results Last 24 Hrs of Labs/Mics: Laboratory Tests 05/03/16 0624: Anion Gap 10, Estimated GFR > 60, BUN/Creatinine Ratio 16.0, CBC w Diff NO MAN DIFF REQ, RBC 3.44 L, MCV 83.7, MCH 27.7, RDW 15.3 H, MPV 8.2, Gran % 71.2, Lymphocytes % 14.1 L, Monocytes % 13.4 H, Eosinophils % 0.9, Basophils % 0.4, Absolute Granulocytes 5.6, Absolute Lymphocytes 1.1 L, Absolute Monocytes 1.1 H, Absolute Eosinophils 0.1, Absolute Basophils 0, PUBS MCHC 33.1 05/02/16 2225: Lactic Acid 2.1 05/02/16 1930: Lactic Acid 2.5 H 05/02/16 1635: Lactic Acid 3.5 H Assessment/Plan Assessment: #Sepsis most likely secondary to pneumonia Patient was admitted with fever, cough. She was found to right basilar opacity on chest x-ray. Patient has a history pancreatic cancer and she is on chemotherapy. Today she is saturating well on room air. She denies any current chest pain, palpitation, fever or chills. * Continue ceftriaxone 1 g daily IV * Continue azithromycin 500 mg daily IV * Follow-up blood and sputum culture * Negative strep and Legionella * We will order CT chest tomorrow #Lactic acidosis Resolved #Transaminitis Etiology includes stress-induced versus statin induced versus possible metastases. Plan * We will repeat liver function tests in the morning #HTN Left pressure is in the lower borderline * We will hold all antihypertensive medication #History of pancreatic malignancy and on chemotherapy Patient had a schedule chemotherapy session today prior to being admitted. * We will contact Dr. Bradley in a.m. #History of diabetes * NovoLog sliding scale * Accu-Cheks 3 times a day and bedtime Diet carbohydrate 3 DVT prophylaxis Lovenox subcutaneous Full code Problem List: 1. Lactic acid acidosis 2. Fever 3. Pneumonia Pain Ratin Pain Location: NA Pain Goal: Remain pain free Pain Plan: See assessment and plan Tomorrow's Labs & Rationales: CBC
[2016-05-03 14:58] VITALS: BP 102/51
[2016-05-03 22:23] VITALS: BP 132/72
[2016-05-04 07:16] VITALS: BP 162/66
--- NOTE | 2016-05-04 07:28 | PN- Housestaff ---
Subjective Follow-up For: Pneumonia Pancreatic cancer on chemotherapy Subjective: Patient was seen and examined, she is laying in bed looks relaxed and comfortable. No acute overnight events were reported. She is afebrile and white blood cell within normal limits. She saturating well on room air Review of Systems Constitutional: Reports: no symptoms. Denies: chills, fever. Objective Last 24 Hrs of Vital Signs/I&O Vital Signs Date Time Temp Pulse Resp B/P Pulse O2 O2 Flow FiO2 Ox Delivery Rate 05/04 1447 97.8 72 20 109/58 96 Room Air 05/04 0716 97.7 61 20 162/66 97 05/03 2223 97.5 61 20 132/72 98 Intake & Output 05/04 1600 05/04 0800 05/04 0000 Intake Total 120 Output Total Balance 120 Intake, Oral 120 Physical Exam General Appearance: Alert, Oriented X3, Cooperative, No Acute Distress Skin: No Rashes HEENT: Atraumatic, PERRLA, EOMI, Mucous Membr. moist/pink Cardiovascular: Regular Rate, Normal S1, Normal S2, No Murmurs Lungs: Clear to Auscultation Abdomen: Soft, No Tenderness Neurological: Normal Speech Extremities: No Clubbing, No Cyanosis, No Edema Current Medications: Current Medications Sig/Maxim Start time Last Medication Dose Route Stop Time Status Admin Amoxicillin/ 875 MG Q12 05/04 1000 AC 05/04 Clavulanate Potassium PO 1210 Azithromycin 500 MG DAILY 05/02 1000 DC 05/03 Dextrose/Water 250 ML IV 0908 Ceftriaxone Sodium 1,000 MG DAILY 05/02 1000 DC 05/03 IV 0908 Enoxaparin Sodium 40 MG DAILY 05/02 1000 AC 05/04 SC 1209 Ibuprofen 400 MG TID PRN 05/02 0530 AC PO Insulin Aspart 0 TIDAC 05/02 0800 AC 05/04 SC 1250 Morphine Sulfate 1 MG Q4 PRN 05/02 0530 AC IV Omeprazole 20 MG DAILY AC 05/02 1108 AC 05/04 PO 0624 Oxycodone HCl 5 MG Q6 PRN 05/02 0530 AC PO Patient Medication 1 ED .STK-MED ONE 05/04 1330 PR Teaching ED 05/04 1331 Assessment/Plan Assessment: #Sepsis most likely secondary to pneumonia Patient was admitted with fever, cough. She was found to right basilar opacity on chest x-ray. Patient has a history pancreatic cancer and she is on chemotherapy. Today she is saturating well on room air. She denies any current chest pain, palpitation, fever or chills. CT was done today Ground-glass and nodular opacities in both lungs which correlates with underlying infection, also shows multiple nodules and cancer cannot be excluded. * DC oral antibiotic and start Augmentin to finish a course of 7 days * Follow-up blood and sputum culture * Patient will be instructed to follow-up with primary care doctor and oncology #HTN Left pressure is in the lower borderline * We will hold all antihypertensive medication #History of pancreatic malignancy and on chemotherapy Patient had a schedule chemotherapy session today prior to being admitted. * Patient was instructed to follow-up with oncology #History of diabetes * NovoLog sliding scale * Accu-Cheks 3 times a day and bedtime Diet carbohydrate 3 DVT prophylaxis Lovenox subcutaneous Full code Problem List: 1. Pneumonia Pain Ratin Pain Location: na Pain Goal: Remain pain free Pain Plan: See assessment and plan Tomorrow's Labs & Rationales: No labs as patient is a discharge
--- NOTE | 2016-05-04 09:25 | PN- Att Addend ---
Attending Addendum Attending Brief Note Patient reports improved breathing symptoms currently on room air General Appearance: Alert, No Acute Distress Skin: Grossly normal HEENT: PEERLA Neck: Supple, No JVD Cardiovascular: Regular Rate, Normal S1, Normal S2, No Murmurs Lungs: Clear to Auscultation, Normal Air Movement Abdomen: Normal Bowel Sounds, Soft, No Tenderness Neurological: Normal Speech, Strength at 5/5 X4 Ext, Cranial Nerves 3-12 NL, Reflexes 2+ Extremities: No Clubbing, No Cyanosis, No Edema Vascular: Normal Pulses Assessment Right lower lobe infiltrate with improved breathing and fevers resolved. She is awaiting for a CAT scan of the chest this morning. Plan Continue Augmentin for total 7 days Follow-up CAT scan findings If CAT scan is negative patient may be discharged home on home meds Current Medications Sig/Maxim Start time Last Medication Dose Route Stop Time Status Admin Amoxicillin/ 875 MG Q12 05/04 1000 AC Clavulanate Potassium PO Azithromycin 500 MG DAILY 05/02 1000 DC 05/03 Dextrose/Water 250 ML IV 0908 Ceftriaxone Sodium 1,000 MG DAILY 05/02 1000 DC 05/03 IV 0908 Enoxaparin Sodium 40 MG DAILY 05/02 1000 AC 05/03 SC 0908 Ibuprofen 400 MG TID PRN 05/02 0530 AC PO Insulin Aspart 0 TIDAC 05/02 0800 AC 05/03 SC 1714 Morphine Sulfate 1 MG Q4 PRN 05/02 0530 AC IV Omeprazole 20 MG DAILY AC 05/02 1108 AC 05/04 PO 0624 Oxycodone HCl 5 MG Q6 PRN 05/02 0530 AC PO Vital Signs Date Time Temp Pulse Resp B/P Pulse O2 O2 Flow FiO2 Ox Delivery Rate 05/04 0716 97.7 61 20 162/66 97 05/03 2223 97.5 61 20 132/72 98 05/03 1458 97.9 68 18 102/51 98 Room Air
--- NOTE | 2016-05-04 11:25 | NUR ---
PHYSICAL THERAPY- CONSULT RECEIVED, CHART REVIEWED. PER MDR, PT AMBULATING W/ STANDBY ASSIST/SUPERVISION ONLY OF FAMILY. OBSERVED PT AMBULATING W/ STEADY GAIT AROUND ROOM AND TO STRETCHER TO GO OFF THE FLOOR FOR TESTING. PLAN IS FOR HOME D/C. DISCUSSED W/ CONT CARE. NO SKILLED ACUTE P.T. NEEDS IDENTIFIED, WILL NOT FOLLOW.
--- NOTE | 2016-05-04 12:36 | CT SCAN REPORT ---
EXAMINATION: CT CHEST WITHOUT CONTRAST CLINICAL INFORMATION: History of pancreatic cancer on chemotherapy, presents with fever and cough. COMPARISON: Chest x-ray 05/02/2016, CT abdomen and pelvis 03/02/2016. TECHNIQUE: Multidetector volumetric CT imaging of the chest was done. Axial MIP volume rendering provided. Sagittal and coronal reformatted images were obtained. DLP: 153.82 mGy-cm FINDINGS: MARBLE POLISHER HAND: Unremarkable LUNGS: Motion artifact degrades image quality. There are several nodular opacities throughout both lungs, for example there is an oblong 1.1 cm x 0.5 cm nodule in the right middle lobe (5, 213/400), two 4 mm nodular opacity in the left lower lobe (5, 248/400 and 5, 254/400), and a 6 mm nodular opacity over the dome of the diaphragm (4, 270/400) which appear similar to the prior CT abdomen and pelvis. Additional nodular opacities also include a 4 mm subpleural nodular opacity in the left upper lobe (5, 182/400), a 5 mm nodular opacity in the left upper lobe (5, 167/400). Scattered areas of somewhat ground-glass opacity most prominent in the bases which may reflect underlying atelectasis versus underlying infection/inflammatory process. MEDIASTINUM: No mediastinal lymphadenopathy. Coronary artery calcifications are present. PLEURA: There is no pleural effusion. No pleural mass or thickening. AXILLA: No lymphadenopathy. UPPER ABDOMEN: Mild prominence of the intrahepatic bile ducts, not significant changed from prior. No adrenal nodules. OSSEOUS STRUCTURES: Probable vertebral body hemangioma in the T9 vertebral body. IMPRESSION: Motion artifact degrades image quality. Ground-glass and nodular opacities in both lungs as described above. Findings may be related to an underlying infectious/inflammatory process however the presence of metastatic disease is not excluded. Continued imaging surveillance is recommended. Coronary artery calcifications.
[2016-05-04] MEDS ORDERED: AMOX-CLAV 875-1 EACH PO (14:01)
--- NOTE | 2016-05-04 14:42 | Patient Discharge Instructions ---
Discharge Instructions General Discharge Information You were seen/treated for: Pneumonia Special Instructions: 1. Please followup with your PCP next week after discharge Diet Recommended Diet: Diabetic Activity Full Activity/No Limits: Yes Acute Coronary Syndrome Inclusion Criteria At DC or during hospital stay patient has or had the following: ACS DIAGNOSIS No Discharge Core Measures Meds if any: Prescribed or Continued at Discharge Meds if any: NOT Prescribed or Continued at Discharge Congestive Heart Failure Inclusion Criteria At DC or during hospital stay patient has or had the following: CHF DIAGNOSIS No Discharge Core Measures Meds if any: Prescribed or Continued at Discharge Meds if any: NOT Prescribed or Continued at Discharge Cerebrovascular accident Inclusion Criteria At DC or during hospital stay patient has or had the following: CVA/TIA Diagnosis No Discharge Core Measures Meds if any: Prescribed or Continued at Discharge Meds if any: NOT Prescribed or Continued at Discharge Venous thromboembolism Inclusion Criteria VTE Diagnosis No VTE Type NONE VTE Confirmed by (Test) NONE Discharge Core Measures - Per Current guidelines, there needs to be overlap - treatment for the first 5 days of Warfarin therapy. - If discharged on Warfarin prior to 5 days of - overlap therapy, the patient will need to be - assessed for post discharge needs including - *Post discharge parental anticoagulation - *Warfarin and/or parental anticoagulation education - *Follow up date to check INR post discharge At least 5 days overlap therapy as Inpatient No Meds if any: Prescribed or Continued at Discharge Note: Overlap Therapy is Warfarin and Anticoagulant Meds if any: NOT Prescribed or Continued at Discharge
[2016-05-04 14:47] VITALS: BP 109/58
--- NOTE | 2016-05-13 14:34 | Discharge Summary ---
Visit Information Visit Dates Admission Date: 05/02/16 Discharge Date: 05/04/16 Hospital Course Course Attending Physician: JULIÁN BLANC MD Primary Care Physician: CATINA JONES MD Hospital Course: 80-year-old with a history of hypertension, hyperlipidemia, pancreatic cancer on chemotherapy with last chemotherapy April 23 presents for evaluation of fevers. Home Tmax reported to be 102.7. ED vitals were remarkable for temperature of 101.2, heart rate of 108 respiration of 20, heart pressure of 99/89, with saturation of 98% on room air. No leukocytosis was noted and patient was not neutropenic either. She however exhibited elevated lactic acid of 4.5, elevated bilirubin of 1.7, elevated AST of 134 and elevated ALT of 101, and elevated alkaline phosphatase of 78. Radiological findings with chest x-ray was remarkable for right basilar medial opacity with suggestion of either pneumonia versus atelectasis. 1. Sepsis most likely secondary to pneumonia Patient was admitted with fever, cough. She was found to right basilar opacity on chest x-ray. cultures remain negative and CT showed Ground-glass and nodular opacities in both lungs which correlates with underlying infection, also showed multiple nodules and cancer cannot be excluded. outpatient surveillance was recommended. Patient improved clinically on day 3 and was transitioned to oral Augmentin for a total of 7 days and discharged home. 2. Elevated LFTs Elevated LFTs on admission likely in the setting of sepsis. she will need an outpatient liver enzyme follow-up to demonstrate improvement. 3. History of pancreatic malignancy and on chemotherapy patient will resume chemotherapy as outpatient. Patient was instructed to follow -up with oncology Allergies: Coded Allergies: NO KNOWN ALLERGIES (05/02/16) dapagliflozin (From [facility]) (Intermediate, CONFUSION 05/02/16) Significant Procedures: CT CHEST WITHOUT CONTRAST CLINICAL INFORMATION: History of pancreatic cancer on chemotherapy, presents with fever and cough. COMPARISON: Chest x-ray 05/02/2016, CT abdomen and pelvis 03/02/2016. TECHNIQUE: Multidetector volumetric CT imaging of the chest was done. Axial MIP volume rendering provided. Sagittal and coronal reformatted images were obtained. DLP: 153.82 mGy-cm FINDINGS: WIND TECHNICIAN: Unremarkable LUNGS: Motion artifact degrades image quality. There are several nodular opacities throughout both lungs, for example there is an oblong 1.1 cm x 0.5 cm nodule in the right middle lobe (5, 213/400), two 4 mm nodular opacity in the left lower lobe (5, 248/400 and 5, 254/400), and a 6 mm nodular opacity over the dome of the diaphragm (4, 270/400) which appear similar to the prior CT abdomen and pelvis. Additional nodular opacities also include a 4 mm subpleural nodular opacity in the left upper lobe (5, 182/400), a 5 mm nodular opacity in the left upper lobe (5, 167/400). Scattered areas of somewhat ground-glass opacity most prominent in the bases which may reflect underlying atelectasis versus underlying infection/inflammatory process. MEDIASTINUM: No mediastinal lymphadenopathy. Coronary artery calcifications are present. PLEURA: There is no pleural effusion. No pleural mass or thickening. AXILLA: No lymphadenopathy. UPPER ABDOMEN: Mild prominence of the intrahepatic bile ducts, not significant changed from prior. No adrenal nodules. OSSEOUS STRUCTURES: Probable vertebral body hemangioma in the T9 vertebral body. IMPRESSION: Motion artifact degrades image quality. Ground-glass and nodular opacities in both lungs as described above. Findings may be related to an underlying infectious/inflammatory process however the presence of metastatic disease is not excluded. Continued imaging surveillance is recommended. Coronary artery calcifications. Disposition Summary Disposition Principal Diagnosis: pneumonia Additional Diagnosis: sepsis pancreatic cancer Discharge Disposition: home or self care Discharge Instructions General Discharge Information Code Status: Full Code Patient's Diet: diabetic diet Patient's Activity: no restrictions Follow-Up Instructions/Appts: follow-up with oncology as outpatient to continue chemotherapy for pancreatic cancer. She will require repeat liver function test as outpatient in 3 weeks. Medications at Discharge Discharge Medications: Continue taking these medications: Metformin HCl (Metformin HCl ER) 500 MG TAB.ER.24H 2 Tablet ORAL TWICE DAILY Qty = 180 Comments: PER PT MED LIST Moexipril HCl (Moexipril HCl) 15 MG TABLET 0.5 Tablet ORAL Every night Qty = 180 Comments: PER PT GRANDDAUGHTER Esomeprazole (Nexium) 40 MG CAPSULE.DR 1 Capsule ORAL DAILY Qty = 90 Comments: PER PT GRANDDAUGHTER Simvastatin (Simvastatin*) 40 MG TABLET 1 Tablet ORAL Every night Qty = 90 Comments: PER PT GRANDDAUGHTER Ergocalciferol (Vitamin D2) (Vitamin D2) 50,000 UNIT CAPSULE 1 Capsule ORAL ONCE A MONTH Qty = 4 Comments: PER PT GRANDDAUGHTER Start taking the following new medications: Amoxicillin/Clavulanate Potass (Amox-Clav 875-125 MG Tablet) 875 MG-125 MG TABLET 1 Tablet ORAL EVERY 12 HOURS Qty = 9 No Refills Instructions: PLEASE TAKE FIRST DOSE TONIGHT Comments: last given 05/04/16 @ 1210 Copies To: KAREN JEAN,CATINA Ridley Attending Review Statement Documenting Attending: JULIÁN BLANC MD
== END 2016-05-04 17:00 | disposition home health service (06) | DRG 871 ==
LOC: ERH 02:13 → ENPENDDIS 04:32 → ERHI 04:32 → 2NB 04:32
PROVIDERS: Emergency Medicine; Student in an Organized Health Care Education/Training Program; ADMIT Internal Medicine
DX: A41.9 Sepsis, unspecified organism (principal); J18.9 Pneumonia, unspecified organism; E87.2 Acidosis; R64 Cachexia; C25.9 Malignant neoplasm of pancreas, unspecified; E86.0 Dehydration; I10 Essential (primary) hypertension; E78.5 Hyperlipidemia, unspecified; M81.0 Age-related osteoporosis without current pathological fracture; Z68.21 Body mass index [BMI] 21.0-21.9, adult; E11.9 Type 2 diabetes mellitus without complications; Z79.84 Long term (current) use of oral hypoglycemic drugs
CPT/HCPCS: 2NBP; 81001; 82436; 87040; 87070; 87449; 87450; 87804; 87804-59; 93005; 93010; 96374; 96375; J0131; J0456; J0696; J1650; J7060

== ENCOUNTER 2017-04-13 09:42 | Emergency (ER) | payer OTHER, MEDICARE ==
[~2017-04-13] VITALS: Ht 160 cm; Wt 52.2 kg
[~2017-04-13 09:42] MED LIST changes: +AMOX-CLAV 875-1 EACH PO; +ZOFRAN ODT4 M1 SL
--- NOTE | 2017-04-13 10:24 | CT SCAN REPORT ---
EXAMINATION: CT HEAD WITHOUT CONTRAST CLINICAL INFORMATION: Fall. Hit back of head. COMPARISON: Head CT 01/23/2017. TECHNIQUE: Contiguous axial imaging was performed from the skull base to vertex without intravenous administration of contrast. DLP: 600 mGy-cm FINDINGS: There is no evidence of acute intracranial hemorrhage or territorial infarction. No abnormal mass effect or midline shift is seen. Lopez to white matter differentiation is well preserved. No extra-axial fluid collections are identified. The ventricles and sulcal spaces are proportionate without hydrocephalus. There is periventricular and subcortical white matter hypoattenuation, consistent with a degree of ischemic microangiopathy. The osseous structures and soft tissues are unremarkable. The mastoid air cells and visualized portions of the paranasal sinuses are well aerated. IMPRESSION: No acute intracranial pathology.
--- NOTE | 2017-04-13 11:28 | ED MVC/FALL/TRAUMA COMPLAINT ---
History of Present Illness General Chief Complaint: Fall Stated Complaint: RECIO/NECK PAIN S/P FALL LAST NIGHT Source: patient, family Exam Limitations: language barrier Vital Signs & Intake/Output Vital Signs & Intake/Output Vital Signs Date Time Temp Pulse Resp B/P B/P Pulse O2 O2 Flow FiO2 Mean Ox Delivery Rate 04/13 1240 97.6 67 18 142/80 100 Room Air 04/13 0952 97.2 65 18 147/66 99 Room Air Allergies Coded Allergies: donepezil (From NAMZARIC) (UNKNOWN 03/20/17) memantine (From NAMZARIC) (UNKNOWN 03/20/17) dapagliflozin (From FARXIGA) (Intermediate, CONFUSION 05/02/16) Reconcile Medications Amoxicillin/Clavulanate Potass (Amox-Clav 875-125 MG Tablet) 875 MG-125 MG TABLET 1 TAB PO Q12 PNEUMONIA PLEASE TAKE FIRST DOSE TONIGHT Ergocalciferol (Vitamin D2) (Vitamin D2) 50,000 UNIT CAPSULE 1 CAP PO Q30D SUPPLEMENT (Reported) Esomeprazole (Nexium) 40 MG CAPSULE.DR 1 CAP PO DAILY GI (Reported) Metformin HCl (Metformin HCl ER) 500 MG TAB.ER.24H 2 TAB PO BID DIABETES ( Reported) Moexipril HCl 15 MG TABLET 0.5 TAB PO QPM BP (Reported) Ondansetron (Zofran Odt) 4 MG TAB.RAPDIS 1 TAB SL TID PRN nausea Simvastatin (Simvastatin*) 40 MG TABLET 1 TAB PO QPM CHOLESTEROL (Reported) Triage Note: PT STATES THAT SHE SLIPPPED AND FELL IN THE BATH TUB LAST PM HITTING THE BACK OF HER HEAD ON THE TUB. DENIES LOC BUT " STATES THAT SHE FELT DIZZY FOR A COUPLE OF MINUTES AFTERWARDS. PT ALERT AND ORIENTED AND COMPLAINS OF PAIN TO THE BACK OF HER HEAD " DENIES THINNERS" AND PAIN TO BILATERAL SIDE OF HER NECK. DENIES C-SPINE TENDERNESS ON LIGHT PALPATION. Triage Nurses Notes Reviewed? yes Onset: Abrupt Duration: day(s): (1), constant Timing: recent history Severity: mild, moderate Method of Injury: fall Loss of Consciousness: unsure No Modifying Factors: none HPI: 81-year-old female brought into the emergency room by her son for further evaluation after slipping and falling in the shower last night. Patient reports that she was getting into the shower and there is some soap and she slipped and fell and hit the back of her head and came down on her left side. She reports that she has swelling to the back of her head. Some pain to the left side of her neck. Some associated left shoulder left rib and left hip pain. She was able to walk in here. She denies any anticoagulants. She denies any preceding lightheaded dizziness chest pain shortness of breath. After she hit her head she felt disoriented and dizzy for a minute and then felt better. Those symptoms have since resolved. She comes in for further evaluation. (Abhi Fabian) Past History Travel History Traveled to [place] past 21 day No Medical History Any Pertinent Medical History? see below for history Neurological: NONE EENT: NONE Cardiovascular: hypertension, hyperlipidemia Respiratory: NONE Gastrointestinal: NONE Hepatic: NONE Renal: NONE Musculoskeletal: OSTEOPOROSIS Psychiatric: NONE Endocrine: diabetes Blood Disorders: NONE Cancer(s): pancreatic cancer KILN FEEDER/Reproductive: NONE History of MRSA: No History of VRE: No History of CDIFF: No Surgical History Surgical History: non-contributory Psychosocial History Who do you live with Patient/Self Services at Home None What is your primary language Bahraini Tobacco Use: Never used ETOH Use: denies use Illicit Drug Use: denies illicit drug use Family History Hx Contributory? No (Abhi Fabian) Review of Systems Review of Systems Constitutional: Reports: no symptoms. Eyes: Reports: no symptoms. Ears, Nose, Throat, Mouth: Reports: no symptoms. Respiratory: Reports: no symptoms. Cardiovascular: Reports: no symptoms. Gastrointestinal/Abdominal: Reports: no symptoms. Genitourinary: Reports: no symptoms. Musculoskeletal: Reports: see HPI. Skin: Reports: no symptoms. Neurological/Psychological: Reports: see HPI. All Other Systems: Reviewed and Negative (Abhi Fabian) Physical Exam Physical Exam General Appearance: well developed/nourished, no apparent distress, alert, awake Head: atraumatic, normal appearance Eyes: Bilateral: normal appearance, PERRL, EOMI. Ears, Nose, Throat, Mouth: hearing grossly normal, moist mucous membrane Neck: normal inspection, supple, full range of motion Respiratory: normal breath sounds, no respiratory distress, left side rib pain, no ecchymosis, Gastrointestinal: soft Back: normal inspection Extremities: normal range of motion Neurologic/Psych: awake, alert, oriented x 3 Skin: intact, normal color Core Measures ACS in differential dx? No CVA/TIA Diagnosis No Sepsis Present: No Sepsis Focused Exam Completed? No (Abhi Fabian) Progress Differential Diagnosis: abd injury, C/T/L spine injury, ext injury, ICH, pelvis injury, pnemothorax, spinal cord injury Plan of Care: Orders Procedure Date/time Status Durable Medical Equipment 04/13 1317 Active Diagnostic Imaging: Viewed by Me: Radiology Read, CT Scan. Discussed w/RAD: Radiology Read, CT Scan. Radiology Impression: PATIENT: HARRIS SANTAMARIA PRESENT AGE: 81 PATIENT ACCOUNT NO: [id number] : 33 LOCATION: [facility] ORDERING PHYSICIAN: Tanner Santos DO SERVICE DATE: 04/13/17 EXAM TYPE: CAT - CT HEAD WO IV CONTRAST EXAMINATION: CT HEAD WITHOUT CONTRAST CLINICAL INFORMATION: Fall. Hit back of head. COMPARISON: Head CT 01/23/2017. TECHNIQUE: Contiguous axial imaging was performed from the skull base to vertex without intravenous administration of contrast. DLP: 600 mGy-cm FINDINGS: There is no evidence of acute intracranial hemorrhage or territorial infarction. No abnormal mass effect or midline shift is seen. Lopez to white matter differentiation is well preserved. No extra-axial fluid collections are identified. The ventricles and sulcal spaces are proportionate without hydrocephalus. There is periventricular and subcortical white matter hypoattenuation, consistent with a degree of ischemic microangiopathy. The osseous structures and soft tissues are unremarkable. The mastoid air cells and visualized portions of the paranasal sinuses are well aerated. IMPRESSION: No acute intracranial pathology. DICTATED BY: Christian Meléndez MD DATE/TIME DICTATED: 04/13/171017 CONCESSION SUPERVISOR:LINN DATE/TIME TRANSCRIBED:04/13/171017 CONFIDENTIAL, DO NOT COPY WITHOUT APPROPRIATE AUTHORIZATION. <Electronically signed in Other Vendor System> SIGNED BY: Christian Meléndez MD 04/13/17 1024, PATIENT: HARRIS SANTAMARIA PRESENT AGE: 81 PATIENT ACCOUNT NO: [id number] : 33 LOCATION: [facility] ORDERING PHYSICIAN: Abhi ANDERSON SERVICE DATE: 02/27/18-1127 EXAM TYPE: RAD - XRY-AP PELVIS; XRY- HIP 2-3 VIEWS, LEFT; XRY-RIBS UNILATERAL-LEFT; XRY-SHOULDER COMPLETE-LEFT EXAMINATION: Left hip, left shoulder, left ribs with chest x-ray and left hip. CLINICAL INFORMATION: Fall. Pain. COMPARISON: None TECHNIQUE: Left hip 2 views. AP pelvis one view. Left shoulder 4 views. Chest one view. Left RIBS 3 views. of the left hip. FINDINGS: LEFT SHOULDER: On axial view there is a irregular lucency traversing the left humeral neck suspicious for undisplaced fracture. There is no dislocation. The soft tissues are normal. CHEST AND LEFT RIBS: The lungs are somewhat expanded and clear. The heart size and pulmonary vascularity is normal. There is bilateral parahilar infrahilar bronchiectasis suggestive of small airway disease but no focal consolidation. No gross bony abnormality seen. Multiple views of left ribs no visible fracture or bony abnormality. The soft tissues are unremarkable. AP PELVIS: There is normal symmetry of bilateral SI joints and hip joints. No visible acute fracture involving the pelvis. There is a metallic device in between the L5 and L4 spinous process. LEFT HIP: There is no visible acute fracture or dislocation seen. The soft tissues are normal. IMPRESSION: Suspect left humeral neck fracture without displacement. This can be confirmed with CT. No dislocation seen. Unremarkable chest. No visible left rib fracture identified. Unremarkable AP pelvis and left hip joint. DICTATED BY: Augie Blanco MD DATE/TIME DICTATED:04/13/171244 CONCESSION SUPERVISOR:LINN DATE/TIME TRANSCRIBED:04/13/171244 CONFIDENTIAL, DO NOT COPY WITHOUT APPROPRIATE AUTHORIZATION. <Electronically signed in Other Vendor System> SIGNED BY: Augie Blanco MD 04/13/17 9345 (Abhi Fabian) Departure Departure Disposition: HOME OR SELF CARE Condition: Stable Clinical Impression Primary Impression: Head injury Secondary Impressions: Closed fracture of left proximal humerus Referrals: Roshan JEAN,Jaime Ridley (PCP/Family) Nolvia JEAN,Sai Mireles Additional Instructions: Take Tylenol for pain. Follow-up with orthopedic doctor. Return if any concerns worsening symptoms. Please go over all results of today's visit with your primary care doctor. Contact your primary care doctor to let them know you were here in the emergency room. There may be nonspecific findings which may not be related to your visit today here in the emergency room but may require further evaluation and chronic monitoring by your primary care doctor. If you had a laceration today the chance of foreign body always remains. You should follow-up with your primary care doctor for recheck in 3-5 days for a wound check. If you had an x-ray done there is a chance that a fracture could have been missed on initial read and you should follow-up with your primary care doctor for repeat x-rays if symptoms persist. If your blood pressure was elevated here in the emergency room please have rechecked by kerri primary care doctor within the next 48. If you were prescribed a narcotic here in the emergency room or any type of controlled substances you're not allowed to drive while taking this medication or operate any type of heavy machinery. Narcotics can make you feel lightheaded dizziness nausea and can cause constipation. You may need to brass pickler a stool softener. Thank you for choosing [facility] emergency room. Please return to the emergency room immediately if you have any other concerns worsening of symptoms. Departure Forms: Customer Survey General Discharge Information Comments 04/13/2017 2:10:44 PM Patient clinically looks well. Patient has no apparent distress. Patient is nontoxic-appearing. Patient resting comfortably on stretcher. Full range of motion of left shoulder. Likely a proximal humerus fracture. Patient was put in a shoulder immobilizer. She is able to ambulate here in the emergency room with no difficulty without any assistance and without a walker. Physical therapy was set up for the patient at home. Tylenol take as needed at home for pain. No midline neck pain. She is alert and oriented. High functioning for her age. Safe for discharge at this time. Case discussed with Dr. walters. (Abhi Fabian) PA/COMMUNICATIONS ADMINISTRATOR Co-Sign Statement Statement: ED Attending supervision documentation- x I saw and evaluated the patient. I have also reviewed all the pertinent lab results and diagnostic results. I agree with the findings and the plan of care as documented in the PA's/COMMUNICATIONS ADMINISTRATOR's documentation. [] I have reviewed the ED Record and agree with the PA's/COMMUNICATIONS ADMINISTRATOR's documentation. [] Additions or exceptions (if any) to the PAs/COMMUNICATIONS ADMINISTRATOR's note and plan are summarized below: [] (Krish JEAN,Rc) Procedures Splinting Location: left shoulder Hand-Made Type: shoulder immobilizer Splint Applied By: splint applied by me Pre-Proc Neuro Vasc Exam: normal Post-Proc Neuro Vasc Exam: normal (Abhi Fabian)
[2017-04-13 12:40] VITALS: BP 142/80
--- NOTE | 2017-04-13 12:55 | RADIOLOGY REPORT ---
EXAMINATION: Left hip, left shoulder, left ribs with chest x-ray and left hip. CLINICAL INFORMATION: Fall. Pain. COMPARISON: None TECHNIQUE: Left hip 2 views. AP pelvis one view. Left shoulder 4 views. Chest one view. Left RIBS 3 views. of the left hip. FINDINGS: LEFT SHOULDER: On axial view there is a irregular lucency traversing the left humeral neck suspicious for undisplaced fracture. There is no dislocation. The soft tissues are normal. CHEST AND LEFT RIBS: The lungs are somewhat expanded and clear. The heart size and pulmonary vascularity is normal. There is bilateral parahilar infrahilar bronchiectasis suggestive of small airway disease but no focal consolidation. No gross bony abnormality seen. Multiple views of left ribs no visible fracture or bony abnormality. The soft tissues are unremarkable. AP PELVIS: There is normal symmetry of bilateral SI joints and hip joints. No visible acute fracture involving the pelvis. There is a metallic device in between the L5 and L4 spinous process. LEFT HIP: There is no visible acute fracture or dislocation seen. The soft tissues are normal. IMPRESSION: Suspect left humeral neck fracture without displacement. This can be confirmed with CT. No dislocation seen. Unremarkable chest. No visible left rib fracture identified. Unremarkable AP pelvis and left hip joint.
== END 2017-04-13 13:36 ==
LOC: ERH 09:42
DX: S42.202A Unspecified fracture of upper end of left humerus, initial encounter for closed fracture (principal); S09.90XA Unspecified injury of head, initial encounter; W18.2XXA Fall in (into) shower or empty bathtub, initial encounter; Y92.9 Unspecified place or not applicable; Y93.E1 Activity, personal bathing and showering
CPT/HCPCS: 71100-LT; 72170; 73030-LT; 73502-LT

== ENCOUNTER 2017-06-13 10:22 | Emergency (ER) | payer OTHER, MEDICARE ==
[~2017-06-13] VITALS: Ht 162.6 cm; Wt 52.2 kg
--- NOTE | 2017-06-13 11:12 | ED GI/GU/ABDOMINAL COMPLAINT ---
History of Present Illness General Chief Complaint: Female Urogenital Problems Stated Complaint: UNABLE TO URINATE XS 1 DAY Source: patient, family, old records Exam Limitations: language barrier Vital Signs & Intake/Output Vital Signs & Intake/Output Vital Signs Date Time Temp Pulse Resp B/P B/P Pulse O2 O2 Flow FiO2 Mean Ox Delivery Rate 06/13 1204 98.0 76 18 136/69 98 Room Air ED Intake and Output 06/14 0000 06/13 1200 Intake Total 0 Output Total 0 Balance 0 Intake, Oral 0 Output, Urine 0 Patient 52.163 kg Weight Weight Reported by Patient Measurement Method Allergies Coded Allergies: donepezil (From NAMZARIC) (VOMITING, GOT SICK 04/17/17) memantine (From NAMZARIC) (VOMITING, GOT SICK 04/17/17) dapagliflozin (From FARXIGA) (Intermediate, CONFUSION 05/02/16) Reconcile Medications Amoxicillin/Clavulanate Potass (Amox-Clav 875-125 MG Tablet) 875 MG-125 MG TABLET 1 TAB PO Q12 PNEUMONIA PLEASE TAKE FIRST DOSE TONIGHT Ergocalciferol (Vitamin D2) (Vitamin D2) 50,000 UNIT CAPSULE 1 CAP PO Q30D SUPPLEMENT (Reported) Esomeprazole (Nexium) 40 MG CAPSULE.DR 1 CAP PO DAILY GI (Reported) Metformin HCl (Metformin HCl ER) 500 MG TAB.ER.24H 2 TAB PO BID DIABETES ( Reported) Moexipril HCl 15 MG TABLET 0.5 TAB PO QPM BP (Reported) Ondansetron (Zofran Odt) 4 MG TAB.RAPDIS 1 TAB SL TID PRN nausea Simvastatin (Simvastatin*) 40 MG TABLET 1 TAB PO QPM CHOLESTEROL (Reported) Sulfamethoxazole/Trimethoprim (Bactrim Ds Tablet) 800 MG-160 MG TABLET 1 TAB PO BID UTI Triage Note: REPORTS DIFFICULTY PASSING HER URINE AND WHEN SHE DOES IS IN SMALL AMOUNTS AND IT'S PAINFULL. Triage Nurses Notes Reviewed? yes ? N Is pt currently ? No HPI: 81F primarily Paraguayan speaking, PMH hypertension, hyperlipidemia, pancreatic cancer on chemotherapy with last chemotherapy, history assisted by son, presents with 1 day of decreased urination with pressure and pain, as well as 3 days of intermittent LUQ discomfort. LUQ pain has been intermittent for 3 days, not related to movement or food. It is not present at this time. She has had difficulty urinating since last night, only squeezing out a few drops. She reports pressure pain with this. No hematuria. Denies fever, chills, headache, sore throat, chest pain, SOB, diarrhea, dysuria. Past History Travel History Traveled to [place] past 21 day No Medical History Any Pertinent Medical History? see below for history Neurological: NONE EENT: NONE Cardiovascular: hypertension, hyperlipidemia Respiratory: NONE Gastrointestinal: NONE Hepatic: NONE Renal: NONE Musculoskeletal: OSTEOPOROSIS Psychiatric: NONE Endocrine: diabetes Blood Disorders: NONE Cancer(s): pancreatic cancer TIRE SERVICE SUPERVISOR/Reproductive: NONE History of MRSA: No History of VRE: No History of CDIFF: No Surgical History Surgical History: non-contributory Psychosocial History Who do you live with Patient/Self Services at Home None What is your primary language Paraguayan Tobacco Use: Never used Family History Hx Contributory? No Review of Systems Review of Systems Constitutional: Reports: no symptoms. EENTM: Reports: no symptoms. Respiratory: Reports: no symptoms. Cardiovascular: Reports: no symptoms. GI: Reports: no symptoms. Genitourinary: Reports: no symptoms. Musculoskeletal: Reports: no symptoms. Skin: Reports: no symptoms. Neurological/Psychological: Reports: no symptoms. Hematologic/Endocrine: Reports: no symptoms. Immunologic/Allergic: Reports: no symptoms. All Other Systems: Reviewed and Negative Physical Exam Physical Exam General Appearance: well developed/nourished, no apparent distress Head: atraumatic, normal appearance Eyes: Bilateral: normal appearance. Ears, Nose, Throat, Mouth: hearing grossly normal, moist mucous membrane Neck: normal inspection, supple, full range of motion Respiratory: normal breath sounds, no respiratory distress Cardiovascular: regular rate/rhythm Gastrointestinal: soft, non-tender Back: normal inspection, normal range of motion Extremities: normal range of motion Neurologic/Psych: awake, alert, oriented x 3, normal mood/affect Skin: intact, normal color, warm/dry Core Measures ACS in differential dx? No Sepsis Present: No Sepsis Focused Exam Completed? No Progress Differential Diagnosis: AAA, AMI, appendicitis, biliary colic, bowel obstruction , colon cancer, cholecystitis, diverticulitis, ectopic , endometritis, esophageal varices, gastritis, hepatitis, hernia, hemorrhoids, ischemic bowel, inflamm bowel dis, intrauterine , kidney stone, Ava-Mary Kay tear, ovarian cyst, ovarian torsion, pancreatitis, PID/cervicitis, peptic ulcer, PUD/ GERD, perforated viscous, SBO, threatened AB, UTI/pyelo Plan of Care: Orders Procedure Date/time Status Add-on Test (ER Only) 06/13 1223 Active CULTURE,URINE 06/13 1114 Complete URINALYSIS 06/14 1111 Complete COMPREHENSIVE METABOLIC PANEL 06/14 1111 Complete CBC WITHOUT DIFFERENTIAL 06/14 1111 Complete Laboratory Tests 06/13/17 1128: Anion Gap 11, Estimated GFR > 60, BUN/Creatinine Ratio 16.7, Glucose 116 H, Calcium 9.1, Total Bilirubin 0.4, AST 25, ALT 25, Alkaline Phosphatase 47, Total Protein 6.8, Albumin 4.1, Globulin 2.7, Albumin/Globulin Ratio 1.5, CBC w Diff NO MAN DIFF REQ, RBC 4.44, MCV 87.8, MCH 28.8, MCHC 32.7 L, RDW 14.6 H, MPV 8.6, Gran % 81.5 H, Lymphocytes % 12.8 L, Monocytes % 4.8, Eosinophils % 0.7, Basophils % 0.2, Absolute Granulocytes 6.2, Absolute Lymphocytes 1.0 L, Absolute Monocytes 0.4, Absolute Eosinophils 0.1, Absolute Basophils 0 06/13/17 111: Urine Color YEL, Urine Clarity TURBD H, Urine pH 6.0, Ur Specific Marion >= 1.030, Urine Protein 100 H, Urine Ketones NEG, Urine Nitrite NEG, Urine Bilirubin NEG, Urine Urobilinogen 0.2, Ur Leukocyte Esterase MOD H, Ur Microscopic SEDIMENT EXAMINED, Urine RBC 15-25 H, Urine WBC 25-50 H, Ur Epithelial Cells FEW, Urine Bacteria MOD H, Micro UA Comment MORE INFO: H, Urine Hemoglobin LARGE H, Urine Glucose NEG Microbiology 06/13 1114 URINE ROUT: Urine Culture - COMP Suspect LUQ pain is musculoskeletal, as patient bumped her side over the past few weeks. Will treat UTI as outpatient, as patient was able to urinate here. Initial ED EKG: none Departure Departure Disposition: HOME OR SELF CARE Condition: Stable Clinical Impression Primary Impression: UTI (urinary tract infection) Secondary Impressions: LUQ pain Referrals: Sully Alvarado MD (PCP/Family) Additional Instructions: Follow up with your PCP. Drink plenty of water. Return to ER if any new or worsening symptoms. Departure Forms: Customer Survey General Discharge Information Prescriptions: Current Visit Scripts Sulfamethoxazole/Trimethoprim (Bactrim Ds Tablet) 1 TAB PO BID #14 TAB
[2017-06-13 11:40] LABS: ABSOLUTE BASOPHIL COUNT 0 /CUMM (0.0-0.2); ABSOLUTE EOSINOPHIL COUNT 0.1 /CUMM (0.0-0.7); ABSOLUTE GRANULOCYTE CT 6.2 /CUMM (1.4-6.5); ABSOLUTE MONOCYTE COUNT 0.4 /CUMM (0.10-0.60); BASOPHIL % 0.2 % (0.0-2.0); EOSINOPHIL % 0.7 % (0-5); GRANULOCYTE % 81.5 % (42.2-75.2); MEAN CORPUSCULAR HGB 28.8 PG (27.0-31.0); MEAN CORPUSCULAR HGB CONC 32.7 G/DL (33.0-37.0); MEAN CORPUSCULAR VOLUME 87.8 FL (81.0-99.0); MEAN PLATELET VOLUME 8.6 FL (7.4-10.4); PLATELET COUNT 203 /CUMM (130-400); RBC DISTRIBUTION WIDTH 14.6 % (11.5-14.5); RED BLOOD CELL CT 4.44 /CUMM (4.20-5.40); WHITE BLOOD CELL COUNT 7.7 /CUMM (4.8-10.8)
[2017-06-13 12:04] VITALS: BP 136/69
[2017-06-13] MEDS ORDERED: BACTRIM DS TAB1 EACH PO (12:57)
== END 2017-06-13 12:43 ==
LOC: ERH 10:22
PROVIDERS: Internal Medicine
DX: N39.0 Urinary tract infection, site not specified (principal); R10.12 Left upper quadrant pain
CPT/HCPCS: 81001; 87086

== ENCOUNTER 2017-06-26 17:41 | Inpatient (IN) | payer OTHER, MEDICARE ==
[~2017-06-26] VITALS: Ht 152.4 cm; Wt 50.3 kg
[~2017-06-26 17:41] MED LIST changes: +BACTRIM DS TAB1 EACH PO
[2017-06-26 18:39] LABS: ABSOLUTE BASOPHIL COUNT 0 /CUMM (0.0-0.2); ABSOLUTE EOSINOPHIL COUNT 0.1 /CUMM (0.0-0.7); ABSOLUTE GRANULOCYTE CT 3.3 /CUMM (1.4-6.5); ABSOLUTE LYMPH COUNT 1.1 /CUMM (1.2-3.4); ABSOLUTE MONOCYTE COUNT 0.6 /CUMM (0.10-0.60); BASOPHIL % 0.4 % (0.0-2.0); EOSINOPHIL % 1.3 % (0-5); GRANULOCYTE % 64.5 % (42.2-75.2); HEMATOCRIT 36.6 % (37-47); MEAN CORPUSCULAR HGB 28.8 PG (27.0-31.0); MEAN CORPUSCULAR HGB CONC 33.5 G/DL (33.0-37.0); MEAN CORPUSCULAR VOLUME 85.9 FL (81.0-99.0); MEAN PLATELET VOLUME 8.4 FL (7.4-10.4); PLATELET COUNT 254 /CUMM (130-400); RED BLOOD CELL CT 4.26 /CUMM (4.20-5.40)
--- NOTE | 2017-06-26 19:08 | CT SCAN REPORT ---
EXAMINATION: CT ABDOMEN AND PELVIS WITHOUT CONTRAST CLINICAL INFORMATION: Right flank pain. Recent UTI. Rule out pyelonephritis/stone. COMPARISON: CT of the abdomen and pelvis 03/02/[address] 04/17/2017. TECHNIQUE: Multidetector volumetric imaging was performed from the superior aspect of the liver through the pubic symphysis. Sagittal and coronal reformatted images were obtained on the technologist's workstation. DLP: 264 mGy-cm FINDINGS: LUNG BASES: There is redemonstration of numerous bilateral pulmonary nodules measuring up to 7 mm. Compared to the prior study of 04/17/2017 no definite interval changes seen. There is no pleural effusion. LIVER, GALLBLADDER, AND BILIARY TREE: No focal hepatic mass. There is central pneumobilia which presumably reflects sequela of prior sphincterotomy. There is unchanged. PANCREAS: The body and tail are markedly atrophic. No focal mass is seen. There is no definite dilatation of the main pancreatic duct. SPLEEN: Unremarkable. ADRENAL GLANDS: Unremarkable. KIDNEYS AND URETERS: No nephrolithiasis. No hydronephrosis or hydroureter. The distal ureters are difficult to visualize however no gross calculus is seen. BLADDER: No intraluminal calculus. GASTROINTESTINAL TRACT: The small and large bowel are unremarkable. The appendix is unremarkable. There is nonspecific stranding throughout the mesentery. ABDOMINAL WALL: Tiny fat-containing periumbilical hernia. LYMPH NODES: Normal. VASCULAR: Diffuse atheromatous calcification of the abdominal aorta and its branch vessels. PELVIC VISCERA: The uterus and adnexa are within normal limits. No evidence of pelvic mass. OSSEOUS STRUCTURES: Chronic superior endplate fracture at L1. There is intraosseous angioma T9. There are postoperative findings at the L4-L5 spinous processes. IMPRESSION: - No evidence of nephrolithiasis or hydronephrosis. - New nonspecific stranding throughout the mesentery. - Numerous bilateral pulmonary nodules measuring up to 7 mm which appear stable since 04/17/2017. Metastatic disease is not excluded. Consider further evaluation with PET/CT. - Central pneumobilia likely reflecting sequela of prior sphincterotomy. - Chronic L1 compression fracture.
--- NOTE | 2017-06-26 20:08 | ED GI/GU/ABDOMINAL COMPLAINT ---
History of Present Illness General Chief Complaint: General Adult Stated Complaint: ?UTI/LOW BP WEAKNESS Source: patient, family, old records Exam Limitations: no limitations Vital Signs & Intake/Output Vital Signs & Intake/Output Vital Signs Date Time Temp Pulse Resp B/P B/P Pulse O2 O2 Flow FiO2 Mean Ox Delivery Rate 06/26 2227 98.4 66 18 130/70 100 06/26 2140 97.4 68 20 160/74 97 Room Air 06/26 1945 66 18 155/67 95 Room Air 06/26 1752 96.5 76 16 104/47 93 Room Air Allergies Coded Allergies: donepezil (From NAMZARIC) (VOMITING, GOT SICK 04/17/17) memantine (From NAMZARIC) (VOMITING, GOT SICK 04/17/17) dapagliflozin (From FARXIGA) (Intermediate, CONFUSION 05/02/16) Reconcile Medications Ergocalciferol (Vitamin D2) (Vitamin D2) 50,000 UNIT CAPSULE 1 CAP PO Q30D SUPPLEMENT (Reported) Escitalopram Oxalate (Lexapro) 5 MG TABLET 1 TAB PO DAILY mood (Reported) Esomeprazole (Nexium) 40 MG CAPSULE.DR 1 CAP PO DAILY GI (Reported) Metformin HCl (Metformin HCl ER) 500 MG TAB.ER.24H 2 TAB PO BID DIABETES ( Reported) Moexipril HCl 15 MG TABLET 0.5 TAB PO QPM BP (Reported) Ondansetron (Zofran Odt) 4 MG TAB.RAPDIS 1 TAB SL TID PRN nausea Simvastatin (Simvastatin*) 40 MG TABLET 1 TAB PO QPM CHOLESTEROL (Reported) Sulfamethoxazole/Trimethoprim (Bactrim Ds Tablet) 800 MG-160 MG TABLET 1 TAB PO BID UTI Triage Note: PT TO THE ER C/O UTI SYMPTOMS. PT STATES THAT SHE WAS DIAGNOSED 2 WEEKS AGO. PT STATES THAT SHE IS NOT GETTING BETTER.. PAIN 6/10 INTERMITTEN PAIN.. PT STATES THAT THE PAIN IS BILATERL FLANK PAIN.. PT STATES THAT IT CHEN WHEN SHE URINATES. Triage Nurses Notes Reviewed? yes LMP (ages 10-50): post menopausal ? n Is pt currently ? No Onset: 2 weeks Duration: week(s):, continues in ED, waxing and waning Timing: recent history Quality/Severity: burning, moderate Location: suprapubic Radiation: back Activities at Onset: rest Prior Abdominal Problems: similar symptoms Past Sexual History: Unobtainable at this time Modifying Factors: Worsens With: exercise, movement. Associated Symptoms: abdominal pain, dysuria, fatigue, loss of appetite, weakness HPI: 2 weeks prior to admission patient complained of dysuria frequency diagnosed with UTI. Symptoms continued with anorexia nausea increasing fatigue. One week prior to admission patient was prescribed another antibiotic for UTI. 2 days prior to admission her blood pressure was noted to be 80 systolic with continued symptoms of anorexia nausea weakness nonproductive cough and some confusion. There's been no fever chills vomiting diarrhea chest pain shortness breath headache rash bleeding. ED Sepsis Exam Date of Focused Sepsis Exam: 06/26/17 Time of Focused Sepsis Exam: 2200 Sepsis Cardiac Exam: Regular Rate/Rhythm Sepsis Resp Exam: CTA Sepsis Cap Refill Exam: <2 Sec Sepsis Peripheral Pulse Exam: Normal Sepsis Peripheral Pulse Location: Radial Sepsis Skin Color Exam: Normal for Ethnicity Skin Temp/Moisture Exam: Warm/Dry Past History Travel History Traveled to [place] past 21 day No Medical History Any Pertinent Medical History? see below for history Neurological: NONE EENT: NONE Cardiovascular: hypertension, hyperlipidemia Respiratory: NONE Gastrointestinal: NONE Hepatic: NONE Renal: NONE Musculoskeletal: OSTEOPOROSIS Psychiatric: NONE Endocrine: diabetes Blood Disorders: NONE Cancer(s): pancreatic cancer ZONE MANAGER/Reproductive: NONE History of MRSA: No History of VRE: No History of CDIFF: No Surgical History Surgical History: non-contributory Psychosocial History Who do you live with Patient/Self Services at Home None What is your primary language Mohawk Tobacco Use: Never used Family History Hx Contributory? No Review of Systems Review of Systems Constitutional: Reports: see HPI, malaise, weakness. EENTM: Reports: no symptoms. Respiratory: Reports: no symptoms. Cardiovascular: Reports: no symptoms. GI: Reports: see HPI, nausea. Genitourinary: Reports: see HPI, dysuria. Musculoskeletal: Reports: no symptoms. Skin: Reports: no symptoms. Neurological/Psychological: Reports: no symptoms. Hematologic/Endocrine: Reports: no symptoms. Immunologic/Allergic: Reports: no symptoms. All Other Systems: Reviewed and Negative Physical Exam Physical Exam General Appearance: well developed/nourished, alert, awake, mild distress, thin Head: atraumatic, normal appearance Eyes: Bilateral: normal appearance, PERRL, EOMI, normal inspection. Ears, Nose, Throat, Mouth: hearing grossly normal, Dry mucous membranes Neck: normal inspection, supple, full range of motion, normal alignment Respiratory: normal breath sounds, chest non-tender, no respiratory distress, quiet respiration, lungs clear Cardiovascular: regular rate/rhythm, normal peripheral pulses, norml femoral pulses equa Peripheral Pulses: 4+ carotid (R), 4+ carotid (L) Gastrointestinal: normal bowel sounds, soft, non-tender, no organomegaly Back: normal inspection, normal range of motion Extremities: normal range of motion, no ligament instability Neurologic/Psych: no motor/sensory deficits, awake, alert, oriented x 3, cyber forensics analyst II- XII nml as tested Skin: intact, normal color, warm/dry Core Measures ACS in differential dx? No Sepsis Present: Yes Sepsis Focused Exam Completed? Yes Progress Differential Diagnosis: UTI/pyelo Plan of Care: Orders Procedure Date/time Status Consistent Carbohydrate 3 06/27 B Active CBC WITHOUT DIFFERENTIAL 06/27 06 Active BASIC ELECTROLYTES PLUS BUN&CR 06/27 06 Active Pathway - chart 06/26 230 Active House Staff 06/26 2301 Active Patient Data 06/26 230 Active Code Status 06/26 2300 Active LACTIC ACID 06/26 2058 Complete Patient Data 06/27 2047 Active Intake & Output 06/26 203 Active OXYGEN SETUP (GEN) 06/26 2005 Active Saline Lock 06/26 2005 Active Admit to inpatient 06/26 2005 Active Vital Signs 06/26 2005 Active Activity/Ambulation 06/26 2005 Active Code Status 06/26 2005 Complete BLOOD CULTURE 06/26 195 Active CULTURE,URINE 06/26 175 Active URINALYSIS 06/26 175 Complete TROPONIN LEVEL 06/26 175 Complete LACTIC ACID 06/26 175 Complete COMPREHENSIVE METABOLIC PANEL 06/26 175 Complete CBC WITHOUT DIFFERENTIAL 06/26 175 Complete EKG 06/26 175 Active VTE Mechanical Prophylaxis 06/26 UNK Active Vital Signs 06/26 UNK Complete MISTAKE 06/26 UNK Active FingerStick- Glucose 06/26 UNK Active Current Medications Sig/Maxim Start time Last Medication Dose Stop Time Status Admin Ceftriaxone Sodium 1,000 MG DAILY 06/27 899 AC (Rocephin) Enoxaparin Sodium 40 MG DAILY 06/27 899 AC (Lovenox) Escitalopram Oxalate 5 MG DAILY 06/27 899 UNVr (Lexapro) Lisinopril 10 MG DAILY 05/13 0900 UNVr (Prinivil) Insulin Aspart 0 TIDAC 06/27 0800 AC (NovoLOG) Omeprazole 20 MG DAILY AC 06/27 0700 UNVr (Prilosec) Acetaminophen 650 MG Q6P PRN 06/26 2300 AC (Tylenol) Laboratory Tests 06/26/17 2135: Lactic Acid 1.1 06/26/17 1820: Anion Gap 13, Estimated GFR > 60, BUN/Creatinine Ratio 16.7, Glucose 220 H, Lactic Acid 2.2 H, Calcium 9.0, Total Bilirubin 0.3, AST 23, ALT 22, Alkaline Phosphatase 55, Troponin I < 0.01, Total Protein 6.8, Albumin 3.8, Globulin 3.0, Albumin/Globulin Ratio 1.3, CBC w Diff NO MAN DIFF REQ, RBC 4.26, MCV 85.9, MCH 28.8, MCHC 33.5, RDW 14.0, MPV 8.4, Gran % 64.5, Lymphocytes % 22.0, Monocytes % 11.8 H, Eosinophils % 1.3, Basophils % 0.4, Absolute Granulocytes 3.3, Absolute Lymphocytes 1.1 L, Absolute Monocytes 0.6, Absolute Eosinophils 0.1, Absolute Basophils 0 06/26/171814: Urine Color YEL, Urine Clarity CLEAR, Urine pH 6.0, Ur Specific [place] 1.020, Urine Protein TRACE H, Urine Ketones NEG, Urine Nitrite NEG, Urine Bilirubin NEG, Urine Urobilinogen 0.2, Ur Leukocyte Esterase MOD H, Ur Microscopic SEDIMENT EXAMINED, Urine RBC RARE, Urine WBC 15-25 H, Ur Epithelial Cells FEW, Urine Hemoglobin NEG, Urine Glucose NEG Microbiology 06/26 2026 BLOOD: Blood Culture - RECD 06/26 2018 BLOOD: Blood Culture - RECD 06/26 1814 URINE ROUT: Urine Culture - RECD Diagnostic Imaging: Viewed by Me: Radiology Read, CT Scan. Discussed w/RAD: Radiology Read, CT Scan. Radiology Impression: - No evidence of nephrolithiasis or hydronephrosis. - New nonspecific stranding throughout the mesentery. - Numerous bilateral pulmonary nodules measuring up to 7 mm which appear stable since 04/17/2017. Metastatic disease is not excluded. Consider further evaluation with PET/CT. - Central pneumobilia likely reflecting sequela of prior sphincterotomy. - Chronic L1 compression fracture. CXR Impression: No radiographic evidence of an acute cardiopulmonary process. Initial ED EKG: normal axis, normal intervals, normal p-waves, normal QRS complex, normal sinus rhythm, no ST T wave changes Prior EKG: unchanged Rhythm Strip: normal sinus rhythm Departure Departure Disposition: STILL A PATIENT Condition: Stable Clinical Impression Primary Impression: Sepsis due to urinary tract infection Referrals: Sully Alvarado MD (PCP/Family) Departure Forms: Customer Survey General Discharge Information Admission Note Spoke With: Jaylin Braun MD Documentation of Exam: Documentation of any treatments & extenuating circumstances including Concerns Regarding Discharge (functional status, medication knowledge or non-compliance, living conditions, etc.) that warrant an admission rather than observation: Failure of outpatient antibiotics x 2 IV hydration IV antibiotic follow cultures serial lab exam medication adjustment physical therapy continuing care discharge planning. Critical Care Note Critical Care Note Critical Care Time: 30-74 min (40)
--- NOTE | 2017-06-26 20:48 | RADIOLOGY REPORT ---
EXAMINATION: XR PORTABLE CHEST CLINICAL INFORMATION: 81-year-old woman with weakness. COMPARISON: 04/17/[address] TECHNIQUE: Portable frontal view of the chest was obtained. FINDINGS: The lungs are generally well expanded, without evidence of focal consolidation or overt edema. Heart size is within the range of normal. There are no pleural effusions. Subcentimeter nodule seen on the prior chest CT are not identifiable radiographic. IMPRESSION: No radiographic evidence of an acute cardiopulmonary process.
--- NOTE | 2017-06-26 20:51 | History & Physical ---
Inez Farias MD,[facility] 06/26/172050: General Information and HPI MD Statement: I have seen and personally examined HARRIS SANTAMARIA and documented this H&P. The patient is a 81 year old F who presented with a patient stated chief complaint of [low blood pressure and disuria]. Source of Information: patient, family Exam Limitations: language barrier History of Present Illness: Patient is 81 Y MALAYSIAN F with PMH of ?dementia, DM, HTN, HLIP, pancreatic cancer (recieved chemotherapy, Wiarchana surgenitin in September 2016 at [facility]) and osteoprosis presented to the ED for evaluation of dizziness and, disuria. This is the summertime the patient is seeking for medical help for disuria. Patient visited ED in June 13 for dysuria, was prescribed Bactrim and culture was sent (which grew polymicrobial suggesting contamination). Patient didn't have improvement in symptoms, visited his PCP Dr. Bond 2 days ago and was prescribed NF. This morning patient was feeling dizzy, blood pressure was checked and SPEP was 80mmhg and was brought to ED. she reported dysuria but denied any change in color, frequency, smell, or incontinence. She also reported decreased by mouth intake and appetite and weakness. She noted some cough without sputum, occasional palpitation. Patient denied any chest pain, diarrhea or constipation. Patient was last admitted to in April 2016 for management of sepsis secondary to pneumonia. She is living alone, attends daycare, has a visiting nurse but is relatively independent in activities of daily life. Allergies/Medications Allergies: Coded Allergies: donepezil (From NAMZARIC) (VOMITING, GOT SICK 04/17/17) memantine (From NAMZARIC) (VOMITING, GOT SICK 04/17/17) dapagliflozin (From FARXIGA) (Intermediate, CONFUSION 05/02/16) Past History Travel History Traveled to [place] past 21 day No Medical History Neurological: NONE EENT: NONE Cardiovascular: hypertension, hyperlipidemia Respiratory: NONE Gastrointestinal: NONE Hepatic: NONE Renal: NONE Musculoskeletal: OSTEOPOROSIS Psychiatric: NONE Endocrine: diabetes Blood Disorders: NONE Cancer(s): pancreatic cancer BUTCHER ASSISTANT/Reproductive: NONE History of MRSA: No History of VRE: No History of CDIFF: No Surgical History Surgical History: non-contributory Past Family/Social History Psychosocial History Services at Home: None Sexual History Past Sexual History Unobtainable at this time Review of Systems Review of Systems Constitutional: Reports: see HPI. Exam & Diagnostic Data Last 24 Hrs of Vital Signs/I&O Vital Signs Date Time Temp Pulse Resp B/P B/P Pulse O2 O2 Flow FiO2 Mean Ox Delivery Rate 06/26 1945 66 18 155/67 95 Room Air 06/26 1752 96.5 76 16 104/47 93 Room Air Physical Exam General Appearance Alert, Oriented X3, Cooperative, No Acute Distress, japanese speaking Skin No Significant Lesion Skin Temp/Moisture Exam: Warm/Dry Sepsis Skin Exam (color): Normal for Ethnicity HEENT Atraumatic, EOMI Cardiovascular Normal S1, Normal S2 Lungs Clear to Auscultation, Normal Air Movement Abdomen Soft, Mild tenderness in deep palpitation Neurological Normal Speech, Strength at 5/5 X4 Ext Extremities No Edema Last 24 Hrs of Labs/Ramirez: Laboratory Tests 06/26/172134: Lactic Acid 1.1 06/26/17 1820: Anion Gap 13, Estimated GFR > 60, BUN/Creatinine Ratio 16.7, Glucose 220 H, Lactic Acid 2.2 H, Calcium 9.0, Total Bilirubin 0.3, AST 23, ALT 22, Alkaline Phosphatase 55, Troponin I < 0.01, Total Protein 6.8, Albumin 3.8, Globulin 3.0, Albumin/Globulin Ratio 1.3, CBC w Diff NO MAN DIFF REQ, RBC 4.26, MCV 85.9, MCH 28.8, MCHC 33.5, RDW 14.0, MPV 8.4, Gran % 64.5, Lymphocytes % 22.0, Monocytes % 11.8 H, Eosinophils % 1.3, Basophils % 0.4, Absolute Granulocytes 3.3, Absolute Lymphocytes 1.1 L, Absolute Monocytes 0.6, Absolute Eosinophils 0.1, Absolute Basophils 0 06/26/171814: Urine Color YEL, Urine Clarity CLEAR, Urine pH 6.0, Ur Specific [place] 1.020, Urine Protein TRACE H, Urine Ketones NEG, Urine Nitrite NEG, Urine Bilirubin NEG, Urine Urobilinogen 0.2, Ur Leukocyte Esterase MOD H, Ur Microscopic SEDIMENT EXAMINED, Urine RBC RARE, Urine WBC 15-25 H, Ur Epithelial Cells FEW, Urine Hemoglobin NEG, Urine Glucose NEG Microbiology 06/26 2026 BLOOD: Blood Culture - RECD 06/26 2018 BLOOD: Blood Culture - RECD 06/26 1814 URINE ROUT: Urine Culture - RECD Assessment/Plan Assessment: Patient is 81 Y MALAYSIAN F presented for evaluation of dizziness and disuria PMH of ?dementia, DM, HTN, HLIP, pancreatic cancer (recieved chemotherapy, Wipple surgerin in September 2016 at [facility]) and osteoprosis VS, Ph Ex at admission: Blood pressure at time of admission 104/47. Improve to 155/67, others insignificant Labs at admission: C BC insignificant, WBC 5, no band, Na 135, LA 2.2 UA, LE moderate, WBC 15-25 Imagings at admission: CXR: No radiographic evidence of an acute cardiopulmonary process Abdominal CT: - No evidence of nephrolithiasis or hydronephrosis. - New nonspecific stranding throughout the mesentery. - Numerous bilateral pulmonary nodules measuring up to 7 mm which appear stable since 04/17/2017. Metastatic disease is not excluded. Consider further evaluation with PET/CT. - Central pneumobilia likely reflecting sequela of prior sphincterotomy. - Chronic L1 compression fracture. In the ED patient recieved 2l of NS and Rocephin. Patient was admitted to [facility] floor for management of following conditions: UTI Low BP. improved with fluids in ED Weakness, deconditioning chronic medical conditions Lactic acidosis - admit to [facility] floor - vital signs - gentle IV hydration - trend LA - continue Rocephin - Follow cultures - PT consult - accucheks, Sliding scale - continue home medications FC Diabetic diet DVT ppx: ALPS and lovenox As Ranked By This Provider Problem List: 1. UTI (urinary tract infection) Core Measures/Misc (11/01) Acute Coronary Syndrome ACS Diagnosis: No Congestive Heart Failure Congestive Heart Failure Diagnosis No Cerebrovascular Accident CVA/TIA Diagnosis: No VTE (View Protocol) VTE Risk Factors Age>40 No Mechanical VTE Prophylaxis d/t N/A MechProphylax Ordered No VTE Pharm Prophylaxis d/t NA PharmProphylax ordered Sepsis (View protocol) Sepsis Present: No Jason JEAN,[facility] 06/26/17 9471: General Information and HPI Allergies/Medications Home Med list Ergocalciferol (Vitamin D2) (Vitamin D2) 50,000 UNIT CAPSULE 1 CAP PO Q30D SUPPLEMENT (Reported) Escitalopram Oxalate (Lexapro) 5 MG TABLET 1 TAB PO DAILY mood (Reported) Esomeprazole (Nexium) 40 MG CAPSULE.DR 1 CAP PO DAILY GI (Reported) Metformin HCl (Metformin HCl ER) 500 MG TAB.ER.24H 2 TAB PO BID DIABETES ( Reported) Moexipril HCl 15 MG TABLET 0.5 TAB PO QPM BP (Reported) Ondansetron (Zofran Odt) 4 MG TAB.RAPDIS 1 TAB SL TID PRN nausea Simvastatin (Simvastatin*) 40 MG TABLET 1 TAB PO QPM CHOLESTEROL (Reported) Sulfamethoxazole/Trimethoprim (Bactrim Ds Tablet) 800 MG-160 MG TABLET 1 TAB PO BID UTI Resident Review Statement Resident Statement: examined this patient, discussed with security intern, agreed with security intern, discussed with family, discussed with nursing Other Findings: Mrs. Santamaria is 81 year old female with past medical history significant for hypertension, hyperlipidemia, diabetes mellitus, pancreatic cancer status post Whipple procedure and chemotherapy, Multiple lung nodules, osteoporosis with compression fracture L1 who presented to ED with chief complaint of UTI and hypotension. Patient started to experience UTI symptoms dysuria 2 weeks ago, had a visit to the ED on June 13 where she was prescribed Bactrim, urine culture from that visit grew mixed karissa and was not helpful to direct the antibiotic choice. Patient reported persistent symptoms and had a visit to her PCP Jaime Islas MD 2 days ago where she was prescribed nitrofintoin. This morning patient felt dizzy and her grandchild who had been to be a nurse measured her blood pressure and found blood pressure systolic in 80s and was brought to ED for evaluation. Patient denied any abdominal pain, flank pain, increased urine frequency, change in the color or the odor of urine, hematuria. Denied any fever however reported one episode of fever 2 weeks ago when initially started to have symptoms. Denied any chills. Patient reported poor oral intake recently mainly fluid intake. Patient denied any constipation last bowel movement was this morning. On admission temperature 96.5, pulse 76, blood pressure 104/47, saturating 93% on room air Physical exam as mentioned above Labs significant for no leukocytosis or neutropenia 5, H&H 12.3/36.6, platelet 254, sodium 135, potassium 4.8, BUN/creatinine 10/0.6, glucose 220, lactic acid 2.2 UA positive leukocyte esterase, white blood cell 15-25, no nitrates or red blood cell. Of note UA in June 13 show positive leukocyte esterase, white blood cells 50-25 and no nitrates. Chest x-ray negative for cardiopulmonary process, CT abdomen and pelvis showed new non-specific stranding of mesentery. Pulmonary nodule stable size. Chronic compression fracture L1. No signs of nephrolithiasis or hydronephrosis Problem list UTI Lactic acidosis probably due to dehydration Diabetes Hypertension and hyperlipidemia Plan Admit to general medical floor Vitals every shift Orthostatic measurement Continue ceftriaxone Follow-up urine and blood culture Repeat CBC and PEB Lactic acid normalized after 2 boluses of fluid Continue off IV fluids Encourage oral intake EcoCheck and NovoLog sliding scale Continue home medication Please confirm the dose of meioxpril 15 versus 7.5 and statin dose For now patient was prescribed lisinopril 10 mg daily Diet diabetic with sodium restriction DVT prophylaxis Lovenox Code full Kade JEAN, [facility] 06/27/17 0411: Attending MD Review Statement Attending Statement Attending MD Statement: examined this patient, discuss w/resident/PA/STOCK CUTTER, agreed w/resident/PA/STOCK CUTTER, reviewed images, amended to note Attending Assessment/Plan: 81 yo Divehi speaking F with h/o HTN, T2DM, pancreatic cancer s/p chemo and Whipple's procedure currently in remission, lung nodules, OA, dementia, is here for evaluation of weakness, anorexia, nausea, and persistent UTI symptoms despite treatment. Patient lives alone, goes to daycare three times a week (MWF) and has a visiting nurse. For the past 2 weeks, patient was treated for a UTI initially with Bactrim (June 13) by ER physician and then Nitrofurantoin (June 24) by PCP, however she continues to have dysuria. Denies hematuria, urinary frequency or foul smelling urine. Today she felt dizzy, and her SBP at home was in the 80's, so family brought her in. Vitals stable. Exam as above. Labs: no leukocytosis, glucose 220, lactic acid 2.2 --> 1.1, trop negative, LFTs normal. UA trace proteinuria, moderate leukocyte esterase, WBC 15-25. Previous urine cultures have grown pansensitive Ecoli and Citrobacter. CT abd/pelvis: no nephrolithiasis or hydronephrosis, new nonspecific stranding throughout mesentery, numerous b/l pulmonary nodules stable, chronic L1 compression fracture. CXR: no consolidation. EKG: sinus rhythm, LVH, no acute changes. Assessment and plan: 1. Weakness, anorexia 2. Recurrent UTI, failed outpatient therapy 3. Hypotension initial BP was 104/47 improved with fluids 4. Elevated lactic acid improving 5. Type 2 diabetes 6. H/o pancreatitis cancer in remission 7. Chronic lung nodules - Admit to General medicine - Panculture - Check orthostats - Fall precautions - Check TSH, B12, vit D - Continue IV ceftriaxone, taper antibiotics based on UC - Gentle IV hydration - Diabetes management, check HbA1c - Resume home meds after confirming CMR in AM - PT eval DVT ppx Lovenox. Full code.
[2017-06-26 22:27] VITALS: BP 130/70
[2017-06-26] MEDS ORDERED: LEXAPRO5 M1 PO (23:21)
[2017-06-27 00:22] VITALS: BP 148/64
--- NOTE | 2017-06-27 04:29 | Admission Certification ---
Admission Certification Certification Statement - As attending physician, I certify that at the time of - admission, based on clinical presentation, severity of - symptoms, need for further diagnostic testing and - therapeutic interventions, and risk of adverse outcomes - without in-hospital treatment, in my clinical assessment, - this patient requires an acute hospital stay for a minimum - of two nights or longer. I have also considered psychsocial - factors such as support system, advanced age, financial - issues, cognitive issues, and failed out-patient treatments, - past re-admission history, safety of patient, and lack of - compliance as applicable. Specific rationale supporting this admission is: Recurrent UTI, weakness, failed outpatient therapy.
[2017-06-27 06:06] VITALS: BP 134/62
--- NOTE | 2017-06-27 08:39 | PN- Housestaff ---
[facility] Subjective Follow-up For: Urinary tract infection Generalized weakness Subjective: No overnight events. Patient remained afebrile,. Seen and examined this morning. She denied any chest pain, short of breath, nausea, vomiting, chills, fever, abdominal pain. Reported pain while urinating. Patient is feeling tired. Her appetite has been decreased. Review of Systems Constitutional: Reports: weakness. Denies: chills, fever. EENTM: Reports: no symptoms. Cardiovascular: Denies: chest pain, orthopena, palpitations. Respiratory: Denies: cough, short of breath, sputum production. Gastrointestinal: Denies: abdominal pain, bloating, diarrhea, melena, nausea, vomiting. Genitourinary: Reports: pain. Musculoskeletal: Reports: no symptoms. Neurological/Psychological: Reports: no symptoms. Objective Last 24 Hrs of Vital Signs/I&O Vital Signs Date Time Temp Pulse Resp B/P B/P Pulse O2 O2 Flow FiO2 Mean Ox Delivery Rate 06/27 0828 64 134/62 06/27 0606 98.4 64 20 134/62 97 06/27 0022 98.2 60 20 148/64 98 06/26 2227 98.4 66 18 130/70 100 06/26 2140 97.4 68 20 160/74 97 Room Air 06/26 1945 66 18 155/67 95 Room Air 06/26 1752 96.5 76 16 104/47 93 Room Air Intake & Output 06/27 1600 06/27 0800 06/27 0000 Intake Total 120 2000 Output Total Balance 120 2000 Intake, IV 2000 Intake, Oral 120 Number 1 Bowel Movements Patient 111 lb 110 lb Weight Weight Bed scale Reported by Patient Measurement Method Physical Exam General Appearance: Alert, Oriented X3, Cooperative Skin Temp/Moisture Exam: Warm/Dry Sepsis Skin Exam (color): Normal for Ethnicity HEENT: Atraumatic, PERRLA, EOMI Neck: Supple Cardiovascular: Normal S1, Normal S2 Lungs: Clear to Auscultation Abdomen: Soft, No Tenderness Neurological: Normal Speech, Strength at 5/5 X4 Ext, Normal Tone Extremities: No Edema Assessment/Plan Assessment: 81 YO Yemeni speaking F with h/o HTN, T2DM, pancreatic cancer s/p chemo and Whipple's procedure currently in remission, lung nodules, OA, dementia, is here for evaluation of weakness, anorexia, nausea, and persistent UTI symptoms despite treatment. We are following the patient for following problems: Urinary tract infection: -Failed outpatient treatment with nitrofurantoin and Bactrim. -Continue IV ceftriaxone -Follow-up urine cultures Generalized weakness and decreased blood pressure: -Possibly due to UTI symptoms and decreased oral intake -Her blood pressure was running low because of low oral intake. Continue gentle IV hydration. We will encourage patient to take oral fluids. -Initially patient blood pressure was 104/47 -Patient has decreased appetite -PT/OT evaluation -Fall precautions Pulmonary nodules: -Patient having pulmonary nodules on chest CT scan but they are stable compared to the previous chest CT scan. -Follow up outpatient pulmonology for further recommendations. -Patient having new nonspecific mesenteric strandings. Cardiology recommended PET scan. History of hypertension: -Initially blood pressure medications were held -Continue her lisinopril 10 mg after stabilization of her blood pressure. History of diabetes: -Accu-Cheks -Continue insulin NovoLog according to sliding scale -Fasting blood sugar level is 114 DVT prophylaxis: Mechanical and Lovenox CODE STATUS: Full code Problem List: 1. UTI (urinary tract infection) Pain Ratin Pain Location: NONE Pain Goal: Remain pain free Pain Plan: PAIN PATHWAY Tomorrow's Labs & Rationales: CBC/BEP Nancy London MD 06/27/17 1231: Attending MD Review Statement Attending Statement Attending MD Statement: examined this patient, discuss w/resident/PA/INTERNIST MEDICAL DOCTOR MD, agreed w/resident/PA/INTERNIST MEDICAL DOCTOR MD, reviewed EMR data (avail), discussed with nursing, discussed with case mgmt, amended to note Attending Assessment/Plan: Patient seen and examined. Sitting up comfortably in her chair not in any acute distress. No issues overnight reported by nursing staff. She presented to the emergency room with complaints of dysuria. She was found to have slightly abnormal UA. She was afebrile. Had no leukocytosis. She was also noted to be hypotensive in the emergency room with systolic blood pressure of 80. This improved with IV fluids. She also had an elevated lactic acid level. She was then admitted to the medical service for further medical management. Urine cultures today are negative. Blood cultures are still pending. Laboratory data shows no leukocytosis. Lactic acid level has trended down to normal. She denies nausea or vomiting. She does admit to low abdominal discomfort. She also admits to some dysuria stating that she feels improved compared to presentation. Vital signs are stable this morning. She remains afebrile. On examination she is not in any obvious distress. Heart sounds are regular. Lungs are clear to auscultation bilaterally. Abdomen is soft nontender with normal bowel sounds. She has no costovertebral angle tenderness. She has no peripheral edema. Problems: 1. Dysuria 2. Hypotension; likely secondary to volume depletion. Resolved 3. Diabetes mellitus 4. Hypertension Plan: -Continue antibiotic therapy empirically for now. Follow blood cultures. If negative consider discontinuing antibiotic therapy. -Mobilize patient. -Low-dose insulin sliding scale coverage.
[2017-06-27 10:33] LABS: ABSOLUTE BASOPHIL COUNT 0 /CUMM (0.0-0.2); ABSOLUTE EOSINOPHIL COUNT 0.1 /CUMM (0.0-0.7); ABSOLUTE GRANULOCYTE CT 2.6 /CUMM (1.4-6.5); ABSOLUTE LYMPH COUNT 1.2 /CUMM (1.2-3.4); ABSOLUTE MONOCYTE COUNT 0.5 /CUMM (0.10-0.60); BASOPHIL % 0.3 % (0.0-2.0); EOSINOPHIL % 1.4 % (0-5); GRANULOCYTE % 59.7 % (42.2-75.2); HEMATOCRIT 33.5 % (37-47); MEAN CORPUSCULAR HGB 28.6 PG (27.0-31.0); MEAN CORPUSCULAR HGB CONC 33.1 G/DL (33.0-37.0); MEAN CORPUSCULAR VOLUME 86.3 FL (81.0-99.0); MEAN PLATELET VOLUME 8.5 FL (7.4-10.4); PLATELET COUNT 235 /CUMM (130-400); RBC DISTRIBUTION WIDTH 14.3 % (11.5-14.5); RED BLOOD CELL CT 3.89 /CUMM (4.20-5.40); WHITE BLOOD CELL COUNT 4.3 /CUMM (4.8-10.8)
[2017-06-27 14:53] VITALS: BP 110/60
[2017-06-27 21:23] VITALS: BP 145/64
[2017-06-28 06:45] VITALS: BP 136/68
--- NOTE | 2017-06-28 06:58 | PN- Housestaff ---
[facility] 06[facility]/17 0658: Subjective Follow-up For: Urinary tract infection Generalized weakness Subjective: No over night events. Remained afibrile over night. Denied chest pain, palpitation, shortness of breath, nausea, vomiting, abdominal pain and dysuria. Patient is hemodynamically stable and will be discharged home today. Review of Systems Constitutional: Denies: chills, malaise, weakness. EENTM: Reports: no symptoms. Cardiovascular: Denies: chest pain, orthopena, palpitations. Respiratory: Denies: cough, short of breath, sputum production. Gastrointestinal: Denies: abdominal pain, diarrhea, melena, nausea, vomiting. Genitourinary: Reports: no symptoms. Neurological/Psychological: Reports: no symptoms. Objective Last 24 Hrs of Vital Signs/I&O pulse 76, BP 136/68 Physical Exam General Appearance: Alert, Oriented X3, Cooperative Skin Temp/Moisture Exam: Warm/Dry Sepsis Skin Exam (color): Normal for Ethnicity HEENT: Atraumatic, PERRLA, EOMI Neck: Supple Cardiovascular: Normal S1, Normal S2 Lungs: Clear to Auscultation Abdomen: Soft, No Tenderness Neurological: Normal Speech, Strength at 5/5 X4 Ext, Normal Tone Extremities: No Edema Assessment/Plan Assessment: 81 YO Maltese speaking F with PMH of HTN, T2DM, pancreatic cancer s/p chemo and Whipple's procedure currently in remission, lung nodules, OA, dementia, is here for evaluation of weakness, anorexia, nausea, and persistent UTI symptoms despite treatment. We are following the patient for following problems: Urinary tract infection: -Failed outpatient treatment with nitrofurantoin and Bactrim. -We will discontinue ceftriaxone as her urine cultures are negative and watch her closely for symptoms. -Urine cultures are negative. May be dehydration was the cause of her delirium. Generalized weakness and decreased blood pressure: -Patient's generalized weakness has been improved and her appetite is improving. She is taking more oral fluids. -Her blood pressure is stable now she is off IV fluids. -PT/OT evaluation. -Fall precautions Pulmonary nodules: -Patient having pulmonary nodules on chest CT scan but they are stable compared to the previous chest CT scan. -Follow up outpatient pulmonology for further recommendations. -Patient having new nonspecific mesenteric strandings. Radiology recommended PET scan. History of hypertension: -Initially blood pressure medications were held -Now her blood pressure is elevated we will continue her lisinopril 10 mg daily. History of diabetes: -Accu-Cheks -Continue insulin NovoLog according to sliding scale -Fasting blood sugar level is 111 DVT prophylaxis: Mechanical and Lovenox CODE STATUS: Full code Problem List: 1. Generalized weakness Pain Ratin Pain Location: none Pain Goal: Remain pain free Pain Plan: pain pathway Tomorrow's Labs & Rationales: none Chacha JEAN,[facility] 06/28/17 1223: Attending MD Review Statement Attending Statement Attending MD Statement: examined this patient, discuss w/resident/PA/OFFSET PRESS OPERATOR HELPER, agreed w/resident/PA/OFFSET PRESS OPERATOR HELPER, reviewed EMR data (avail), discussed with nursing, discussed with case mgmt Attending Assessment/Plan: Pt seen and examinded with team. Pt feels well and denies any fever, chills abd pain. No confusion reported by nursing staff. Exam shows stable vitals, clear lungs and soft NT abdomen. Stable for dc. will stop abx since culture is negative. Etiology of confusion (resoved) is not clear. DC home
[2017-06-28 08:08] VITALS: BP 136/68
--- NOTE | 2017-06-28 12:11 | Discharge Summary ---
Visit Information Visit Dates Admission Date: 06/26/17 Discharge Date: 06/28/17 Hospital Course Course Attending Physician: Chacha JEAN,Josette Primary Care Physician: Jaime Islas MD Hospital Course: 81 YO Jamaican speaking F with PMH of HTN, T2DM, pancreatic cancer s/p chemo and Whipple's procedure currently in remission, lung nodules, OA, dementia, is here for evaluation of weakness, anorexia, nausea, and persistent UTI symptoms despite treatment. ED course: Vitals: Temperature 96.5, pulse 76, respiratory rate 16, blood pressure 104/47, oxygen saturation 93% room air Labs: WBC count 5.0, hemoglobin 12.3, hematocrit 36.6, platelet count 254, sodium 135, potassium 4.8, BUN 10, creatinine 0.6 Acute delirium: Patient presented with confusion probably due to acute delirium. Initially patient was treated with ceftriaxone considering positive UA and outpatient treatment failure. Before admission she was treated with nitrofurantoin and Bactrim as outpatient for UTI. Later on her antibiotics were discontinued as her UA is always having positive esterases and her urine culture came back negative. Possibly her dehydration could be a problem for her delirium and confusion. As patient reported that her appetite was low before admission. During the hospital stay patient was encouraged to eat and drink orally. During the hospital stay patient remained afebrile and asymptomatic. Generalized weakness and decreased blood pressure: On admission patient was feeling having generalized weakness and her blood pressure was running low. Initially patient was treated with IV fluids. Later on patient was encouraged to drink more water. During hospital stay patient remained afebrile and asymptomatic. Her blood pressure remained within normal limits. Patient was able to walk around independently and she was discharged home. Pulmonary nodules: Patient had pulmonary nodules on chest CT scan but they are stable compared to the previous chest CT scan. Patient was instructed to follow pulmonology as outpatient for further recommendations. She also had new nonspecific mesenteric strandings. Patient was instructed to follow her primary care physician for further recommendation for PET scan/CT scan for pulmonary nodule workup in future. History of hypertension: Initially her blood pressure was running low that's why were held her antihypertensive medications. Later on after blood pressure stabilization her lisinopril was resumed. History of diabetes: During hospital stay her blood sugar level remained under control. Accu-Cheks were done. Patient was on insulin NovoLog according to sliding scale during hospital stay. After the discharge the resumed her metformin for diabetes. DVT prophylaxis: Mechanical and Lovenox CODE STATUS: Full code Allergies: Coded Allergies: donepezil (From NAMZARIC) (VOMITING, GOT SICK 04/17/17) memantine (From NAMZARIC) (VOMITING, GOT SICK 04/17/17) dapagliflozin (From FARXIGA) (Intermediate, CONFUSION 05/02/16) Pertinent Lab Results: Abdominal/pelvic CT scan on 06/26/2017: IMPRESSION: - No evidence of nephrolithiasis or hydronephrosis. - New nonspecific stranding throughout the mesentery. - Numerous bilateral pulmonary nodules measuring up to 7 mm which appear stable since 04/17/2017. Metastatic disease is not excluded. Consider further evaluation with PET/CT. - Central pneumobilia likely reflecting sequela of prior sphincterotomy. - Chronic L1 compression fracture. Chest x-ray on 06/26/2017: IMPRESSION: No radiographic evidence of an acute cardiopulmonary process. WBC count 4.3, hemoglobin 11.1, hematocrit 33.5, platelet count 235, sodium 138, potassium 4.3, BUN 6, creatinine 0.5, HbA1c 7.8 Disposition Summary Disposition Principal Diagnosis: Acute delirium possibly due to dehydration Generalized weakness and low blood pressure Additional Diagnosis: History of hypertension History of diabetes History of pulmonary nodules Discharge Disposition: home or self care Discharge Instructions General Discharge Information Code Status: Full Code Patient's Diet: Diabetic diet Patient's Activity: Self-limited Follow-Up Instructions/Appts: Follow-up hep primary care physician in one week. And discuss about outpatient PET scan/CT scan for further workup for pulmonary nodules. Medications at Discharge Discharge Medications: Stop taking the following medications: Sulfamethoxazole/Trimethoprim (Bactrim Ds Tablet) 800 MG-160 MG TABLET ORAL TWICE DAILY Qty = 14 Continue taking these medications: Metformin HCl (Metformin HCl ER) 500 MG TAB.ER.24H 2 Tablet ORAL TWICE DAILY Qty = 180 Comments: NOT GIVEN IN HOSPITAL Moexipril HCl (Moexipril HCl) 15 MG TABLET 0.5 Tablet ORAL Every night Qty = 180 Comments: NOT GIVEN IN HOSPITAL Esomeprazole (Nexium) 40 MG CAPSULE.DR 1 Capsule ORAL DAILY Qty = 90 Comments: Last Taken: 06/28/17 Time: 0640 AM Simvastatin (Simvastatin*) 40 MG TABLET 1 Tablet ORAL Every night Qty = 90 Comments: NOT GIVEN IN HOSPITAL Ergocalciferol (Vitamin D2) (Vitamin D2) 50,000 UNIT CAPSULE 1 Capsule ORAL ONCE A MONTH Qty = 4 Comments: NOT GIVEN IN HOSPITAL Ondansetron (Zofran Odt) 4 MG TAB.RAPDIS 1 Tablet SUBLINGUAL THREE TIMES DAILY as needed for nausea Qty = 10 Comments: NOT GIVEN IN HOSPITAL Escitalopram Oxalate (Lexapro) 5 MG TABLET 1 Tablet ORAL DAILY Comments: Last Taken: 06/28/17 Time: 0800 AM Copies To: Roshan JEAN,Jaime Ridley
--- NOTE | 2017-06-28 12:11 | Patient Discharge Instructions ---
Discharge Instructions General Discharge Information You were seen/treated for: Generalized deconditioning Watch for these problems: Generalized weakness, nausea, vomiting, decreased appetite, abdominal pain, burning micturition, pulse in urine, altered mental status and chest pain. If you experience any of these symptoms please come to ED or call to your primary care physician Special Instructions: Follow-up hep primary care physician in one week. Diet Recommended Diet: Diabetic Activity Activity Self Limited: Yes Acute Coronary Syndrome Inclusion Criteria At DC or during hospital stay patient has or had the following: ACS DIAGNOSIS No Discharge Core Measures Meds if any: Prescribed or Continued at Discharge Meds if any: NOT Prescribed or Continued at Discharge Congestive Heart Failure Inclusion Criteria At DC or during hospital stay patient has or had the following: CHF DIAGNOSIS No Discharge Core Measures Meds if any: Prescribed or Continued at Discharge Meds if any: NOT Prescribed or Continued at Discharge Cerebrovascular accident Inclusion Criteria At DC or during hospital stay patient has or had the following: CVA/TIA Diagnosis No Discharge Core Measures Meds if any: Prescribed or Continued at Discharge Meds if any: NOT Prescribed or Continued at Discharge Venous thromboembolism Inclusion Criteria VTE Diagnosis No VTE Type NONE VTE Confirmed by (Test) NONE Discharge Core Measures - Per Current guidelines, there needs to be overlap - treatment for the first 5 days of Warfarin therapy. - If discharged on Warfarin prior to 5 days of - overlap therapy, the patient will need to be - assessed for post discharge needs including - *Post discharge parental anticoagulation - *Warfarin and/or parental anticoagulation education - *Follow up date to check INR post discharge At least 5 days overlap therapy as Inpatient No Meds if any: Prescribed or Continued at Discharge Note: Overlap Therapy is Warfarin and Anticoagulant Meds if any: NOT Prescribed or Continued at Discharge
== END 2017-06-28 12:45 | DRG 690 ==
LOC: ERH 17:41 → ERHI 20:06 → 2NB 20:06 → ENRESERV 21:16 → ENTRNSPT 21:55 → EDTRNSPTSTS 22:03 → 2NB 22:10 → CMPTRNSPT 22:23 → 2NB 06-28 07:49
PROVIDERS: Physician Assistant Medical; Student in an Organized Health Care Education/Training Program
DX: N39.0 Urinary tract infection, site not specified (principal); E87.2 Acidosis; I95.9 Hypotension, unspecified; E86.0 Dehydration; E11.8 Type 2 diabetes mellitus with unspecified complications; R63.0 Anorexia; I10 Essential (primary) hypertension; Z85.07 Personal history of malignant neoplasm of pancreas; Z79.84 Long term (current) use of oral hypoglycemic drugs; R91.8 Other nonspecific abnormal finding of lung field; R53.1 Weakness; Z92.21 Personal history of antineoplastic chemotherapy; M81.0 Age-related osteoporosis without current pathological fracture; E78.5 Hyperlipidemia, unspecified
CPT/HCPCS: 2NBP; 36592; 71045; 74176; 81001; 82436; 87040; 87086; 93005; 93010; 96374; 99291; J0696; J1650

== ENCOUNTER 2017-09-05 20:20 | Inpatient (IN) | payer OTHER, MEDICARE ==
[~2017-09-05] VITALS: Ht 152.4 cm; Wt 43.3 kg
[~2017-09-05 20:20] MED LIST changes: +KEFLEX500 M1 PO; +LEXAPRO5 M1 PO; +NITROFURANTOIN50 M1 PO; +OMEPRAZOLE20 M2 PO; +PROBIOTIC1 EACH PO; +PYRIDIUM100 M1 PO; +REPAGLINIDE0.5 M1 PO; +TYLENOL EXTRA500 M2 PO; +VITAMIN B-121000 MC3 PO; +VITAMIN C500 M9 PO
--- NOTE | 2017-09-05 21:13 | ED GENERAL ADULT ---
History of Present Illness General Chief Complaint: General Adult Stated Complaint: "NOT FEELING WELL, WEAK" PER SON Source: patient, family, old records Exam Limitations: no limitations Vital Signs & Intake/Output Vital Signs & Intake/Output Vital Signs Date Time Temp Pulse Resp B/P B/P Pulse O2 O2 Flow FiO2 Mean Ox Delivery Rate 09/06 1042 98.0 67 20 137/72 97 Room Air 09/06 0845 97.8 70 20 128/70 98 Room Air 09/06 0632 97.5 75 20 110/58 99 Room Air 09/05 2244 97.2 73 19 144/76 97 Room Air 09/05 2050 97.6 71 18 154/84 98 Room Air ED Intake and Output 09/06 0000 09/05 1200 Intake Total Output Total 100 Balance -100 Output, Urine 100 Patient 98 lb Weight Weight Reported by Patient Measurement Method Allergies Coded Allergies: donepezil (From NAMZARIC) (VOMITING, GOT SICK 04/17/17) memantine (From NAMZARIC) (VOMITING, GOT SICK 04/17/17) dapagliflozin (From FARXIGA) (Intermediate, CONFUSION 05/02/16) Reconcile Medications Ascorbic Acid (Vitamin C) 500 MG CAPSULE 1 CAP PO DAILY SUPPLEMENT (Reported) Cyanocobalamin (Vitamin B-12) 1,000 MCG TABLET 1 TAB PO DAILY SUPPLEMENT ( Reported) Ergocalciferol (Vitamin D2) (Vitamin D2) 50,000 UNIT CAPSULE 1 CAP PO QW SUPPLEMENT (Reported) Escitalopram Oxalate (Lexapro) 5 MG TABLET 1 TAB PO DAILY mood (Reported) Esomeprazole (Nexium) 40 MG CAPSULE.DR 1 CAP PO DAILY GI (Reported) Metformin HCl (Metformin HCl ER) 500 MG TAB.ER.24H 2 TAB PO BID DIABETES ( Reported) Moexipril HCl 15 MG TABLET 1 TAB PO QPM BP (Reported) Nitrofurantoin Macrocrystal (Nitrofurantoin) 50 MG CAPSULE 1 CAP PO DAILY PROPHYLAXIS (Reported) Omeprazole 20 MG CAPSULE.DR 1 CAP PO DAILY GI (Reported) Repaglinide 0.5 MG TABLET 1 TAB PO BID DM (Reported) Triage Note: PT TO ER W/ SON C/C 1-2 MONTH HX OF WEIGHT LOSS, ANOREXIA, WEAKNESS AND FATIGUE. PT CURRENTLY BEING TREATED FOR CHRONIC UTI. SON STATES S/S HAVE BEEN WORSENING SINCE CHRONIC UTI STARTED. Triage Nurses Notes Reviewed? yes HPI: 82F PMH dementia, DM, HTN, HLIP, pancreatic cancer (recieved chemotherapy, Wipple surgerin in September 2016 at [facility]) and osteoprosis presenting with 3 days of generalized weakness, fatigue, decreased PO intake, dry cough. She appears weak, history mainly given by son. Has some weight loss in the past few months. Recently presented similarly and diagnosed with UTI. No neurological deficit. (Osorio Romero MD) Past History Travel History Traveled to [place] past 21 day No Medical History Any Pertinent Medical History? see below for history Neurological: dementia EENT: NONE Cardiovascular: hypertension, hyperlipidemia Respiratory: NONE Gastrointestinal: NONE Hepatic: NONE Renal: NONE Musculoskeletal: falls, OSTEOPOROSIS COMPRESSION FX L1 Psychiatric: NONE Endocrine: diabetes Blood Disorders: NONE Cancer(s): pancreatic cancer CHARGE GANG WEIGHER/Reproductive: NONE History of MRSA: No History of VRE: No History of CDIFF: No Surgical History Surgical History: WHIPPLE PROCEDURE 09/2016 Psychosocial History Who do you live with Patient/Self Services at Home Nursing What is your primary language Beninese Tobacco Use: Never used Family History Hx Contributory? No (Osorio Romero MD) Review of Systems Review of Systems Constitutional: Reports: no symptoms. EENTM: Reports: no symptoms. Respiratory: Reports: no symptoms. Cardiovascular: Reports: no symptoms. GI: Reports: no symptoms. Genitourinary: Reports: no symptoms. Musculoskeletal: Reports: no symptoms. Skin: Reports: no symptoms. Neurological/Psychological: Reports: no symptoms. Hematologic/Endocrine: Reports: no symptoms. Immunologic/Allergic: Reports: no symptoms. All Other Systems: Reviewed and Negative (Osorio Romero MD) Physical Exam Physical Exam General Appearance: well developed/nourished, no apparent distress Head: atraumatic, normal appearance Eyes: Bilateral: normal appearance. Ears, Nose, Throat: normal ENT inspection, hearing grossly normal Neck: normal inspection, full range of motion Respiratory: normal breath sounds, chest non-tender, no respiratory distress Cardiovascular: regular rate/rhythm Gastrointestinal: soft, non-tender Back: normal inspection, normal range of motion Extremities: normal inspection, normal range of motion Neurologic/Psych: awake, alert, oriented x 3, normal mood/affect Skin: intact, normal color, warm/dry Core Measures ACS in differential dx? No CVA/TIA Diagnosis: No Sepsis Present: No Sepsis Focused Exam Completed? No (Nick JEAN,Osorio) Progress Differential Diagnoses I considered the following diagnoses in my evaluation of the patient: UTI, pneumonia, ACS, stroke, gastroenteritis, delirium, C.diff. Plan of Care: Orders Procedure Date/time Status Heart Healthy Diet 09/06 L Active Heart Healthy Diet 09/06 B Complete ED Holding Orders 09/06 1020 Active Admit to inpatient 09/06 1020 Active Vital Signs 09/06 1020 Active Code Status 09/06 1020 Active PT Evaluate & Treat 09/06 2255 Active CASE MANAGEMENT CONSULT 09/06 2255 Active Add-on Test (ER Only) 09/05 2153 Active C.DIFFICILE 09/05 2153 Active B-TYPE NATRIURETIC PEP (BNP) 09/05 2137 Complete URINALYSIS 09/06 2055 Complete TROPONIN LEVEL 09/06 2055 Complete COMPREHENSIVE METABOLIC PANEL 09/06 2055 Complete CBC WITHOUT DIFFERENTIAL 09/06 2055 Complete EKG 09/06 2055 Active Current Medications Sig/Maxim Start time Last Medication Dose Stop Time Status Admin Ascorbic Acid 500 MG DAILY 09/06 0900 UNVr 09/06 (Vitamin C) 0842 Cyanocobalamin 1,000 MCG DAILY 09/06 0900 UNVr 09/06 (Vitamin B12) 0842 Escitalopram Oxalate 5 MG DAILY 09/06 0900 UNVr 09/06 (Lexapro) 0842 Metformin HCl 500 MG 0800,1700 09/06 0800 CANr (Glucophage) Metformin HCl 1,000 MG 0800,1700 09/06 0800 UNVr 09/06 (Glucophage) 0730 Omeprazole 40 MG DAILY AC 09/06 0700 UNVr 09/06 (Prilosec) 0730 Laboratory Tests 09/05/17 2241: Urine Color YEL, Urine Clarity CLEAR, Urine pH 6.5, Ur Specific [place] <= 1.005 , Urine Protein NEG, Urine Ketones 15 H, Urine Nitrite NEG, Urine Bilirubin NEG , Urine Urobilinogen 0.2, Ur Leukocyte Esterase NEG, Ur Microscopic EXAM NOT REQUIRED, Urine Hemoglobin NEG, Urine Glucose NEG 09/05/172137: Anion Gap 8, Estimated GFR > 60, BUN/Creatinine Ratio 22.0, Glucose 106 H, Calcium 8.9, Total Bilirubin 0.4, AST 35, ALT 33, Alkaline Phosphatase 48, Troponin I < 0.01, Bzm-Z-Wpkurodgfiy Pept 352 H, Total Protein 6.2 L, Albumin 3.5, Globulin 2.7, Albumin/Globulin Ratio 1.3, CBC w Diff NO MAN DIFF REQ, RBC 4.43, MCV 88.5, MCH 29.6, MCHC 33.5, RDW 15.1 H, MPV 8.0, Gran % 56.5, Lymphocytes % 34.8, Monocytes % 8.0, Eosinophils % 0.4, Basophils % 0.3, Absolute Granulocytes 2.3, Absolute Lymphocytes 1.4, Absolute Monocytes 0.3, Absolute Eosinophils 0, Absolute Basophils 0 Microbiology 09/05 2153 STOOL: Clostridium difficile Toxin A & B - ORD (Osorio Romero MD) Differential Diagnoses I considered the following diagnoses in my evaluation of the patient: Diagnostic Imaging: Viewed by Me: Radiology Read. Discussed w/RAD: Radiology Read. CXR Impression: PATIENT: HARRIS SANTAMARIA PRESENT AGE: 82 PATIENT ACCOUNT NO: [id number] : 33 LOCATION: [facility] ORDERING PHYSICIAN: Osorio Romero MD SERVICE DATE: 09/05/17 EXAM TYPE: RAD - XRY-PORTABLE CHEST XRAY EXAMINATION: XR PORTABLE CHEST CLINICAL INFORMATION: Dyspnea on exertion with weakness COMPARISON: 06/26/2017 TECHNIQUE: Portable frontal view of the chest was obtained. FINDINGS: Mild probably chronic increased lung markings without focal consolidation. Costophrenic angles are sharp. There is no pneumothorax. Heart mediastinum and lisa unchanged. IMPRESSION: Chronic changes as above, no acute infiltrate or failure. DICTATED BY: Marian Kasper MD DATE/ TIME DICTATED:09/05/172240 RN FORENSIC:LINN DATE/TIME TRANSCRIBED: 09/05/172240 CONFIDENTIAL, DO NOT COPY WITHOUT APPROPRIATE AUTHORIZATION. < Electronically signed in Other Vendor System> SIGNED BY: Marian Kasper MD 09/05/172245 Initial ED EKG: normal axis, normal intervals, normal p-waves, normal QRS complex, normal sinus rhythm (Adi JEAN,Angus Mireles) Departure Departure Condition: Stable Referrals: Roshan JEAN,aJime Ridley (PCP/Family) Departure Forms: Customer Survey General Discharge Information (Osorio Romero MD) Departure Disposition: HOME OR SELF CARE Clinical Impression Primary Impression: Weakness Comments pt to be signed out to dr. irby, 09/06/17, 7am, pending case management, PT evaluation. (Adi JEAN,Angus Mireles) Admission Note Spoke With: Lg Puga MD Documentation of Exam: Documentation of any treatments & extenuating circumstances including Concerns Regarding Discharge (functional status, medication knowledge or non-compliance, living conditions, etc.) that warrant an admission rather than observation: [ Patient needs admission for IV fluid, consider PT evaluation, placement and short-term rehabilitation She was signed out to me by Dr. Joshi at 7 AM] (Tom MANUEL,Tanner Morin) Critical Care Note Critical Care Note Critical Care Time: non-applicable (Adi JEAN,Angus Mireles)
[2017-09-05 21:43] LABS: ABSOLUTE BASOPHIL COUNT 0 /CUMM (0.0-0.2); ABSOLUTE EOSINOPHIL COUNT 0 /CUMM (0.0-0.7); ABSOLUTE GRANULOCYTE CT 2.3 /CUMM (1.4-6.5); ABSOLUTE LYMPH COUNT 1.4 /CUMM (1.2-3.4); ABSOLUTE MONOCYTE COUNT 0.3 /CUMM (0.10-0.60); BASOPHIL % 0.3 % (0.0-2.0); EOSINOPHIL % 0.4 % (0-5); GRANULOCYTE % 56.5 % (42.2-75.2); HEMATOCRIT 39.2 % (37-47); MEAN CORPUSCULAR HGB 29.6 PG (27.0-31.0); MEAN CORPUSCULAR HGB CONC 33.5 G/DL (33.0-37.0); MEAN CORPUSCULAR VOLUME 88.5 FL (81.0-99.0); PLATELET COUNT 213 /CUMM (130-400); RBC DISTRIBUTION WIDTH 15.1 % (11.5-14.5); RED BLOOD CELL CT 4.43 /CUMM (4.20-5.40); WHITE BLOOD CELL COUNT 4.1 /CUMM (4.8-10.8)
--- NOTE | 2017-09-05 22:46 | RADIOLOGY REPORT ---
EXAMINATION: XR PORTABLE CHEST CLINICAL INFORMATION: Dyspnea on exertion with weakness COMPARISON: 06/26/2017 TECHNIQUE: Portable frontal view of the chest was obtained. FINDINGS: Mild probably chronic increased lung markings without focal consolidation. Costophrenic angles are sharp. There is no pneumothorax. Heart mediastinum and lisa unchanged. IMPRESSION: Chronic changes as above, no acute infiltrate or failure.
--- NOTE | 2017-09-06 10:56 | History & Physical ---
Opal Keys 09/06/17 1056: General Information and HPI MD Statement: I have seen and personally examined HARRIS SANTAMARIA and documented this H&P. The patient is a 82 year old F who presented with a patient stated chief complaint of [weakness]. Source of Information: patient Exam Limitations: patient is greenlandic speaking, most hx obtained from son History of Present Illness: Patient is 82-year-old female with past medical history of pancreatic cancer which was diagnosed in October 2016, status post chemotherapy and Whipple surgery, hypertension, type 2 diabetes mellitus, lung nodules, Alzheimer disease , was brought in by son due to weakness. Son states that last night when they were going to [employer], patient felt dizzy and wanted to sit down. Son states that patient has been feeling very weak and intermittently dizzy since past 1-2 months, she has had a weight loss of 20 pounds since February 2017. She has been having low appetite, and has also been eating less due to her denture problems. Patient also has a history of recurrent UTI, and is maintained on nitrofurantoin 50 mg daily as UTI prophylaxis since July 2017. Of note, patient was seen in ER last week for back pain, and was diagnosed with UTI. Her dose of nitrofurantoin at that time was doubled and patient does not report of any urinary hesitancy/urgency/burning micturition today. Son states that patient is following with Dr. Bradley at [facility] for her pancreatic cancer, last time she followed up with her was in February 2017, and last CAT scan done on August 2017 did not show any progression of pancreatic cancer. Son expressed his concern that patient lives alone at home during the day, and at night they have an aid who comes to stay with the patient. Patient had an appointment with her dentist for tomorrow regarding dentures. Patient is Japanese speaking, however son translated, and patient denied any headache, dizziness, chest pain, palpitations, abdominal discomfort, pain in legs during current admission. Patient's last fall was 3 months ago, when she was brought in to [facility]. She is advised to use walker and cane at home but is not compliant. The son and [id number] helps the patient with medication administration. Allergies/Medications Allergies: Coded Allergies: donepezil (From NAMZARIC) (VOMITING, GOT SICK 04/17/17) memantine (From NAMZARIC) (VOMITING, GOT SICK 04/17/17) dapagliflozin (From FARXIGA) (Intermediate, CONFUSION 05/02/16) Home Med list Ascorbic Acid (Vitamin C) 500 MG CAPSULE 1 CAP PO DAILY SUPPLEMENT (Reported) Cyanocobalamin (Vitamin B-12) 1,000 MCG TABLET 1 TAB PO DAILY SUPPLEMENT ( Reported) Ergocalciferol (Vitamin D2) (Vitamin D2) 50,000 UNIT CAPSULE 1 CAP PO QW SUPPLEMENT (Reported) Escitalopram Oxalate (Lexapro) 5 MG TABLET 1 TAB PO DAILY mood (Reported) Esomeprazole (Nexium) 40 MG CAPSULE.DR 1 CAP PO DAILY GI (Reported) Metformin HCl (Metformin HCl ER) 500 MG TAB.ER.24H 2 TAB PO BID DIABETES ( Reported) Moexipril HCl 15 MG TABLET 1 TAB PO QPM BP (Reported) Nitrofurantoin Macrocrystal (Nitrofurantoin) 50 MG CAPSULE 1 CAP PO DAILY PROPHYLAXIS (Reported) Omeprazole 20 MG CAPSULE.DR 1 CAP PO DAILY GI (Reported) Repaglinide 0.5 MG TABLET 1 TAB PO BID DM (Reported) Past History Travel History Traveled to [place] past 21 day No Medical History Neurological: dementia EENT: NONE Cardiovascular: hypertension, hyperlipidemia Respiratory: NONE Gastrointestinal: NONE Hepatic: NONE Renal: NONE Musculoskeletal: falls, OSTEOPOROSIS COMPRESSION FX L1 Psychiatric: NONE Endocrine: diabetes Blood Disorders: NONE Cancer(s): pancreatic cancer DIESEL TRUCK TECHNICIAN/Reproductive: NONE History of MRSA: No History of VRE: No History of CDIFF: No Surgical History Surgical History: WHIPPLE PROCEDURE 09/2016 Past Family/Social History Psychosocial History Where do you live? Home Who Do You Live With? self Services at Home: Nursing Review of Systems Review of Systems Constitutional: Reports: see HPI. Exam & Diagnostic Data Last 24 Hrs of Vital Signs/I&O Vital Signs Date Time Temp Pulse Resp B/P B/P Pulse O2 O2 Flow FiO2 Mean Ox Delivery Rate 09/06 1042 98.0 67 20 137/72 97 Room Air 09/06 0845 97.8 70 20 128/70 98 Room Air 09/06 0632 97.5 75 20 110/58 99 Room Air 09/05 2244 97.2 73 19 144/76 97 Room Air 09/05 2050 97.6 71 18 154/84 98 Room Air Intake & Output 09/06 1600 09/06 0800 09/06 0000 Intake Total Output Total 100 Balance -100 Output, Urine 100 Patient 44.452 kg Weight Weight Reported by Patient Measurement Method Physical Exam General Appearance Alert, Oriented X3, Cooperative, No Acute Distress Skin No Rashes HEENT Atraumatic Neck Supple Cardiovascular Regular Rate, Normal S1, Normal S2 Lungs Clear to Auscultation Abdomen Soft, No Tenderness, No Hepatospenomegaly, scaphoid in appearance Extremities No Cyanosis, No Edema Last 24 Hrs of Labs/Ramirez: Laboratory Tests 09/05/171: Urine Color YEL, Urine Clarity CLEAR, Urine pH 6.5, Ur Specific [place] <= 1.005 , Urine Protein NEG, Urine Ketones 15 H, Urine Nitrite NEG, Urine Bilirubin NEG , Urine Urobilinogen 0.2, Ur Leukocyte Esterase NEG, Ur Microscopic EXAM NOT REQUIRED, Urine Hemoglobin NEG, Urine Glucose NEG 09/05/172240: Urine Osmolality 195 L, Ur Random Creatinine 24.6, Ur Random Sodium 32, Ur Random Potassium 16.8, Fraction Sodium Excret 0.5 09/05/172137: Anion Gap 8, Estimated GFR > 60, BUN/Creatinine Ratio 22.0, Glucose 106 H, Serum Osmolality 272 L, Calcium 8.9, Total Bilirubin 0.4, AST 35, ALT 33, Alkaline Phosphatase 48, Troponin I < 0.01, Iry-N-Ngzgonikgqb Pept 352 H, Total Protein 6.2 L, Albumin 3.5, Globulin 2.7, Albumin/Globulin Ratio 1.3, CBC w Diff NO MAN DIFF REQ, RBC 4.43, MCV 88.5, MCH 29.6, MCHC 33.5, RDW 15.1 H, MPV 8.0, Gran % 56.5, Lymphocytes % 34.8, Monocytes % 8.0, Eosinophils % 0.4, Basophils % 0.3, Absolute Granulocytes 2.3, Absolute Lymphocytes 1.4, Absolute Monocytes 0.3, Absolute Eosinophils 0, Absolute Basophils 0 Microbiology 09/05 2153 STOOL: Clostridium difficile Toxin A & B - ORD Assessment/Plan Assessment: Patient is 82-year-old female with past medical history of pancreatic cancer which was diagnosed in October 2016, status post chemotherapy and Whipple surgery, hypertension, type 2 diabetes mellitus, lung nodules, Alzheimer disease , was brought in by son due to weakness. Son states that last night when they were going to [employer], patient felt dizzy and wanted to sit down. Son states that patient has been feeling very weak and intermittently dizzy since past 1-2 months, she has had a weight loss of 20 pounds since February 2017. She has been having low appetite, and has also been eating less due to her denture problems. Patient also has a history of recurrent UTI, and is maintained on nitrofurantoin 50 mg daily as UTI prophylaxis since July 2017. Of note, patient was seen in ER last week for back pain, and was diagnosed with UTI. Her dose of nitrofurantoin at that time was doubled and patient does not report of any urinary hesitancy/urgency/burning micturition today. Labs and vitals as above. Chest x-ray, increased markings in lungs persistent with the previous imaging report. Assessment and plan We will monitor the patient on general medicine floor for her hyponatremia and increased weakness. Her weight loss could be secondary to her decreased appetite, however given the history of her stage II pancreatic cancer status post treatment, can consider PET scan to evaluate for any secondaries. Patient has a problem with chewing diet due to her dentures, will start her on ground soft mechanical diet with thin liquids. Patient will be evaluated by physical therapist for placement. 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 Will check orthostatic vitals for her dizziness and put patient on 1000 cc fluid restriction. Patient takes thousand twice a day metformin at home, will stop metformin and start her on low-dose sliding scale and fingersticks at bedtime 3 times a day before meals. We'll continue the rest of her home meds including Lexapro, Nexium, moexipril. DVT prophylaxis according his heparin Patient is full code, son is the power of compliance attorney and has living will which he will give to the director of casework department. As Ranked By This Provider Problem List: 1. Generalized weakness Core Measures/Misc (11/01) Acute Coronary Syndrome ACS Diagnosis: No Congestive Heart Failure Congestive Heart Failure Diagnosis No Cerebrovascular Accident CVA/TIA Diagnosis: No VTE (View Protocol) VTE Risk Factors Age>40 No Mechanical VTE Prophylaxis d/t N/A MechProphylax Ordered No VTE Pharm Prophylaxis d/t NA PharmProphylax ordered Sepsis (View protocol) Sepsis Present: No If YES complete Sepsis Event Note If YES complete Sepsis Event Note Obie JEAN,Joanna 09/06/17 1309: Core Measures/Misc (11/01) Sepsis (View protocol) If YES complete Sepsis Event Note If YES complete Sepsis Event Note Attending MD Review Statement Attending Statement Attending MD Statement: examined this patient, discuss w/resident/PA/FARM SUPERVISOR, agreed w/resident/PA/FARM SUPERVISOR, discussed with family, reviewed EMR data (avail), discussed with nursing, reviewed images, amended to note Attending Assessment/Plan: 82 y/o F with [facility] sig for pancreatic cancer which was diagnosed in October 2016, status post chemotherapy and Whipple surgery, hypertension, type 2 diabetes mellitus, lung nodules, Alzheimer disease, was brought in by her son secondary to having generalized weakness, poor appetite and weight loss over the last 6 months. Patient was seen with similar problems last week. She was encouraged to take p.o. and fluids. She also has a history of chronic UTIs and currently on prophylactic dose of Macrobid. Son also mentioned that she had a recent CAT scan for the follow-up of the Whipple. On her last visit to the emergency room, she had a CAT scan done for her abdomen and pelvis in August 29 which showed some pancreatic ductal dilatation but other than that no acute change. Patient herself does complain of some chronic back pain. She denies any abdominal pain. She does admit to poor appetite. Yesterday they went to a store and in the store she mentioned to her son that she is feeling very weak and just cannot walk. She was also feeling dizzy. Vital Signs Date Time Temp Pulse Resp B/P B/P Pulse O2 O2 Flow FiO2 Mean Ox Delivery Rate 09/06 1244 97.6 66 18 146/62 09/06 1218 97.6 66 18 146/62 97 Room Air 09/06 1042 98.0 67 20 137/72 97 Room Air 09/06 0845 97.8 70 20 128/70 98 Room Air 09/06 0632 97.5 75 20 110/58 99 Room Air 09/05 2244 97.2 73 19 144/76 97 Room Air 09/05 2050 97.6 71 18 154/84 98 Room Air on exam; aox3, nad. cv; s1,s2, rrr resp; clear abd; soft, nt, bs+ ext; no edema Laboratory Tests 09/05 09/05 2241 2241 Urines Urine Color (YEL,AMB,STR) YEL Urine Clarity (CLEAR) CLEAR Urine pH (5.0 - 8.0) 6.5 Ur Specific [place] (1.001 - 1.035) <= 1.005 Urine Protein (NEG,<30 MG/DL) NEG Urine Ketones (NEG) 15 H Urine Nitrite (NEG) NEG Urine Bilirubin (NEG) NEG Urine Urobilinogen (0.1 - 1.0 EU/dl) 0.2 Ur Leukocyte Esterase (NEG) NEG Ur Microscopic EXAM NOT REQUIRED Urine Hemoglobin (NEG) NEG Urine Osmolality (300 - 1000 MOSM/KG) 195 L Ur Random Creatinine (mg/dL) 24.6 Ur Random Sodium (30 - 90 mmol/L) 32 Ur Random Potassium (mmol/L) 16.8 Fraction Sodium Excret (<1% %) 0.5 Urine Glucose (N MG/DL) NEG 09/05 2137 Chemistry Sodium (137 - 145 mmol/L) 129 L Potassium (3.5 - 5.1 mmol/L) 5.1 Chloride (98 - 107 mmol/L) 94 L Carbon Dioxide (22 - 30 mmol/L) 26 Anion Gap (5 - 16) 8 BUN (7 - 17 mg/dL) 11 Creatinine (0.5 - 1.0 mg/dL) 0.5 Estimated GFR (>60 ml/min) > 60 BUN/Creatinine Ratio (7 - 25 %) 22.0 Glucose (65 - 99 mg/dL) 106 H Serum Osmolality (285 - 295 MOSM/KG) 272 L Calcium (8.4 - 10.2 mg/dL) 8.9 Total Bilirubin (0.2 - 1.3 mg/dL) 0.4 AST (14 - 36 U/L) 35 ALT (9 - 52 U/L) 33 Alkaline Phosphatase (<127 U/L) 48 Troponin I (< 0.11 ng/ml) < 0.01 Ahq-Q-Ibxkhwavdpv Pept (<125 pg/mL) 352 H Total Protein (6.3 - 8.2 g/dL) 6.2 L Albumin (3.5 - 5.0 g/dL) 3.5 Globulin (1.9 - 4.2 gm/dL) 2.7 Albumin/Globulin Ratio (1.1 - 2.2 %) 1.3 Hematology CBC w Diff NO MAN DIFF REQ WBC (4.8 - 10.8 /CUMM) 4.1 L RBC (4.20 - 5.40 /CUMM) 4.43 Hgb (12.0 - 16.0 G/DL) 13.1 Hct (37 - 47 %) 39.2 MCV (81.0 - 99.0 FL) 88.5 MCH (27.0 - 31.0 PG) 29.6 MCHC (33.0 - 37.0 G/DL) 33.5 RDW (11.5 - 14.5 %) 15.1 H Plt Count (130 - 400 /CUMM) 213 MPV (7.4 - 10.4 FL) 8.0 Gran % (42.2 - 75.2 %) 56.5 Lymphocytes % (20.5 - 51.1 %) 34.8 Monocytes % (1.7 - 9.3 %) 8.0 Eosinophils % (0 - 5 %) 0.4 Basophils % (0.0 - 2.0 %) 0.3 Absolute Granulocytes (1.4 - 6.5 /CUMM) 2.3 Absolute Lymphocytes (1.2 - 3.4 /CUMM) 1.4 Absolute Monocytes (0.10 - 0.60 /CUMM) 0.3 Absolute Eosinophils (0.0 - 0.7 /CUMM) 0 Absolute Basophils (0.0 - 0.2 /CUMM) 0 EKG shows sinus rhythm. Chest x-ray does not show any evidence of infiltrate. Urinalysis is also clear. A/P: 82 y/o F with h sig for pancreatic cancer which was diagnosed in October 2016, status post chemotherapy and Whipple surgery, hypertension, type 2 diabetes mellitus, lung nodules, Alzheimer disease admitted with generalized weakness, poor appetite, hyponatremia likely secondary to polydipsia. Both urine and serum osmolality is low. Patient admitted to medicine floor. Will check her orthostatic vital signs. We will put her on fluid restriction for this hyponatremia and we will monitor her sodium. Will encourage p.o. intake. She had a recent Whipple's procedure done, will try to contact her oncologist and discuss with them. She will be seen by physical therapy. Will hold off her Lexapro as this could also lead to hyponatremia. She will be covered with sliding scale insulin for her diabetes. Pharmacologic DVT prophylaxis and she is a full code. Discussed with patient's son at bedside
[2017-09-06 14:20] VITALS: BP 124/72
[2017-09-06 20:45] VITALS: BP 138/70
[2017-09-07 06:20] VITALS: BP 126/64
--- NOTE | 2017-09-07 07:50 | PN- Housestaff ---
Subjective Follow-up For: hyponatremia weakness orthostatic hypotensiohn Subjective: patient seen and examined. Was found to have severe orthostatic hypotesnion. States that she feels dizzy even when sitting and had a headache last night. no sob or cp. walking with assist of one to ensure she does not fall but walks in straight lines. yesterday daughter communicated to doctor that she and her father who are POAs (as patient has waxing and waning dementia) want her to be DNR DNI. Review of Systems Constitutional: Reports: no symptoms. EENTM: Reports: no symptoms. Cardiovascular: Reports: no symptoms. Respiratory: Reports: no symptoms. Gastrointestinal: Reports: no symptoms. Genitourinary: Reports: no symptoms. Musculoskeletal: Reports: no symptoms. Skin: Reports: no symptoms. Neurological/Psychological: Reports: headache. Objective Last 24 Hrs of Vital Signs/I&O Vital Signs Date Time Temp Pulse Resp B/P B/P Pulse O2 O2 Flow FiO2 Mean Ox Delivery Rate 09/07 1538 Room Air 09/07 1402 97.9 74 18 110/60 100 Room Air 09/07 1002 122/92 09/07 0620 98.1 82 16 126/64 97 Room Air 09/06 2045 97.7 65 12 138/70 97 Room Air Intake & Output 09/07 1600 09/07 0800 09/07 0000 Intake Total 240 250 Output Total 1 Balance 240 250 -1 Intake, IV 10 Intake, Oral 240 240 Number 1 Bowel Movements Output, Stool 1 Physical Exam General Appearance: Alert, Oriented X3, Cooperative, No Acute Distress Skin: No Rashes, No Breakdown, No Significant Lesion HEENT: Atraumatic, PERRLA, EOMI, Mucous Membr. moist/pink Cardiovascular: Regular Rate, Normal S1, Normal S2, No Murmurs Lungs: Clear to Auscultation, Normal Air Movement Abdomen: Normal Bowel Sounds, Soft, No Tenderness Neurological: Normal Gait, Normal Speech, Strength at 5/5 X4 Ext, Normal Tone, Sensation Intact, Cranial Nerves 3-12 NL Vascular: Normal Pulses Current Medications: Current Medications Sig/Maxim Start time Last Medication Dose Route Stop Time Status Admin Ascorbic Acid 500 MG DAILY 09/06 09 AC 09/07 PO 1002 Cyanocobalamin 1,000 MCG DAILY 09/06 09 AC 09/07 PO 1002 Heparin Sodium 5,000 UNIT Q8 09/06 1400 AC 09/07 (Porcine) SC 1439 Insulin Aspart 0 TIDAC 09/06 1700 AC 09/07 SC 1738 Lisinopril 10 MG DAILY 09/06 1230 AC 09/07 PO 1002 Nitrofurantoin 50 MG DAILY 09/07 1700 AC 09/07 PO 1738 Omeprazole 40 MG DAILY AC 09/06 0700 AC 09/07 PO 0625 Patient Medication 1 ED ONE ONE 09/07 1700 DC 09/07 Teaching ED 09/07 1701 1739 Sodium Chloride 1,000 ML Q13H 09/07 1315 AC 09/07 IV 1439 Last 24 Hrs of Lab/Ramirez Results Last 24 Hrs of Labs/Mics: Laboratory Tests 09/07/17 1614: Urine Total Volume Cancelled, Urine Free Cortisol Cancelled, Urine Creatinine Cancelled 09/07/17 0600: Anion Gap 8, Estimated GFR > 60, BUN/Creatinine Ratio 14.0 Assessment/Plan Assessment: Patient is 82-year-old female with past medical history of pancreatic cancer which was diagnosed in October 2016, status post chemotherapy and Whipple surgery, hypertension, type 2 diabetes mellitus, lung nodules, Alzheimer disease , was brought in by son due to weakness. Son states that last night when they were going to [employer], patient felt dizzy and wanted to sit down. Son states that patient has been feeling very weak and intermittently dizzy since past 1-2 months, she has had a weight loss of 20 pounds since February 2017. She has been having low appetite, and has also been eating less due to her denture problems. Patient also has a history of recurrent UTI, and is maintained on nitrofurantoin 50 mg daily as UTI prophylaxis since July 2017. Of note, patient was seen in ER last week for back pain, and was diagnosed with UTI. Her dose of nitrofurantoin at that time was doubled and patient does not report of any urinary hesitancy/urgency/burning micturition today. Labs and vitals as above. Chest x-ray, increased markings in lungs persistent with the previous imaging report. Assessment and plan We will monitor the patient on general medicine floor for her hyponatremia and increased weakness. Her weight loss could be secondary to her decreased appetite, however given the history of her stage II pancreatic cancer status post treatment, can consider PET scan to evaluate for any secondaries. Patient has a problem with chewing diet due to her dentures, will cnt her on ground soft mechanical diet with thin liquids. 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 1L free water restriction. Sodium has increased today. Ortho vitals showed severe ortho hypotension. started ns at 75 cc/hr and will do random coritsol level. repeat orthos tomorrow. follow bep for Na. Left message with oncologist regarding her pancreatic cancer status. check amb sats tomorrow Patient takes thousand twice a day metformin at home, will stop metformin and start her on low-dose sliding scale and fingersticks at bedtime 3 times a day before meals. We'll continue the rest of her home meds including Lexapro, Nexium, moexipril. DVT prophylaxis according his heparin Patient is full code, son is the power of senior j2ee developer and has living will which he will give to the case packer and sealer. Problem List: 1. Generalized weakness 2. Orthostatic hypotension 3. Hyponatremia Pain Ratin Pain Location: na Pain Goal: Remain pain free Pain Plan: na Tomorrow's Labs & Rationales: na
--- NOTE | 2017-09-07 10:57 | PN- Att Addend ---
Attending Addendum Attending Brief Note Patient seen and examined, she states that she is feeling okay but tired. She continues to have poor appetite. She was found to be orthostatic last evening. Vital Signs Date Time Temp Pulse Resp B/P B/P Pulse O2 O2 Flow FiO2 Mean Ox Delivery Rate 09/07 1002 122/92 09/07 0620 98.1 82 16 126/64 97 Room Air 09/06 2045 97.7 65 12 138/70 97 Room Air 09/06 1458 Room Air 09/06 1420 97.6 65 20 124/72 98 09/06 1244 97.6 66 18 146/62 09/06 1218 97.6 66 18 146/62 97 Room Air on exam; aox3, nad. cv; s1,s2, rrr resp; clear abd; soft, nt, bs+ ext; no edema Laboratory Tests 09/07 0600 Chemistry Sodium (137 - 145 mmol/L) 132 L Potassium (3.5 - 5.1 mmol/L) 4.0 Chloride (98 - 107 mmol/L) 97 L Carbon Dioxide (22 - 30 mmol/L) 27 Anion Gap (5 - 16) 8 BUN (7 - 17 mg/dL) 7 Creatinine (0.5 - 1.0 mg/dL) 0.5 Estimated GFR (>60 ml/min) > 60 BUN/Creatinine Ratio (7 - 25 %) 14.0 A/P: 82 y/o F with pmh sig for pancreatic cancer which was diagnosed in October 2016, status post chemotherapy and Whipple surgery, hypertension, type 2 diabetes mellitus, lung nodules, Alzheimer disease admitted with generalized weakness, poor appetite, hyponatremia likely secondary to polydipsia. Na is better today after the fluid restriction. Will repeat check her orthostats. If positive, will hydrate her with NS IVFs. Na is better today. Will get nutrition consult. Will also try to call patient's surgen at [place] Dr. Don and Oncologist Dr. Horne. We held her Lexapro because this could also lead to hyponatremia. We can resume her prophylactic dose of Macrobid. Continue other current management. Patient on hep sq for DVT Proflex
[2017-09-07 14:02] VITALS: BP 110/60
[2017-09-07 22:06] VITALS: BP 108/62
[2017-09-08 06:20] VITALS: BP 112/60
--- NOTE | 2017-09-08 07:31 | PN- Housestaff ---
Subjective Follow-up For: Weakness Orthostatic hypotension Subjective: Patient has no complaints and stable vitals. She has been eating but continues to eats very small amounts. She says now when she has asked if she is depressed. She continues to have positive orthostatics despite being given normal saline at a rate of 75 mL per hour. Cortisol level done last night was normal. Review of Systems Constitutional: Reports: weakness. Cardiovascular: Reports: no symptoms. Respiratory: Reports: no symptoms. Gastrointestinal: Reports: no symptoms. Musculoskeletal: Reports: no symptoms. Neurological/Psychological: Reports: no symptoms. Objective Last 24 Hrs of Vital Signs/I&O Vital Signs Date Time Temp Pulse Resp B/P B/P Pulse O2 O2 Flow FiO2 Mean Ox Delivery Rate 09/08 2211 97.6 57 18 104/70 99 Room Air 09/08 1408 97.2 76 20 110/70 100 Room Air 09/08 0907 60 130/70 09/08 0620 97.8 60 16 112/60 97 Room Air Intake & Output 09/09 0800 09/09 0000 09/08 1600 Intake Total 425 960 Output Total 200 Balance 425 760 Intake, IV 225 600 Intake, Oral 200 360 Number 0 1 Bowel Movements Output, Urine 200 Patient 95 lb 8.99 oz Weight Physical Exam General Appearance: Alert, Oriented X3, Cooperative, No Acute Distress HEENT: Atraumatic, PERRLA, EOMI, Mucous Membr. moist/pink Cardiovascular: Regular Rate, Normal S1, Normal S2 Lungs: Clear to Auscultation, Normal Air Movement Neurological: Normal Speech Extremities: No Clubbing, No Cyanosis, No Edema Current Medications: Current Medications Sig/Maxim Start time Last Medication Dose Route Stop Time Status Admin Ascorbic Acid 500 MG DAILY 09/06 09 AC 09/08 PO 09 Cyanocobalamin 1,000 MCG DAILY 09/06 0900 AC 09/08 PO 09 Fludrocortisone 100 MCG DAILY 09/09 09 AC Acetate PO Heparin Sodium 5,000 UNIT Q8 09/06 1400 AC 09/08 (Porcine) SC 2112 Insulin Aspart 0 TIDAC 09/06 1700 AC 09/08 SC 1211 Lisinopril 5 MG DAILY 09/09 0900 AC PO Lisinopril 10 MG DAILY 09/06 1230 DC 09/08 PO 0907 Nitrofurantoin 50 MG DAILY 09/07 1700 AC 09/08 PO 0904 Omeprazole 40 MG DAILY AC 09/06 0700 AC 09/08 PO 0457 Potassium Chloride 40 MEQ ONCE ONE 09/08 1045 DC 09/08 PO 09/08 1046 1208 Sodium Chloride 1,000 ML Q13H 09/07 1315 AC 09/08 IV 1948 Last 24 Hrs of Lab/Ramirez Results Last 24 Hrs of Labs/Mics: Laboratory Tests 09/08/17 0746: Anion Gap 9, Estimated GFR > 60, BUN/Creatinine Ratio 10.0 Assessment/Plan Assessment: Patient is 82-year-old female with past medical history of pancreatic cancer which was diagnosed in October 2016, status post chemotherapy and Whipple surgery, hypertension, type 2 diabetes mellitus, lung nodules, Alzheimer disease , was brought in by son due to weakness. Son states that last night when they were going to [employer], patient felt dizzy and wanted to sit down. Son states that patient has been feeling very weak and intermittently dizzy since past 1-2 months, she has had a weight loss of 20 pounds since February 2017. She has been having low appetite, and has also been eating less due to her denture problems. Patient also has a history of recurrent UTI, and is maintained on nitrofurantoin 50 mg daily as UTI prophylaxis since July 2017. Of note, patient was seen in ER last week for back pain, and was diagnosed with UTI. Her dose of nitrofurantoin at that time was doubled and patient does not report of any urinary hesitancy/urgency/burning micturition today. Labs and vitals as above. Chest x-ray, increased markings in lungs persistent with the previous imaging report. Assessment and plan We will monitor the patient on general medicine floor for her hyponatremia and increased weakness. Her weight loss could be secondary to her decreased appetite, however given the history of her stage II pancreatic cancer status post treatment, can consider PET scan to evaluate for any secondaries. Patient has a problem with chewing diet due to her dentures, will cnt her on ground soft mechanical diet with thin liquids. 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 1L free water restriction. Sodium has increased today. Ortho vitals showed severe ortho hypotension. started ns at 75 cc/hr and cortisol level random was normal. we will proceed ahead with cardio consultation as she continues to have positive orthostats even with fluids. We spoke with her oncologist who stated that the patient did actually have lung mets with the expectation for repeat CT scan chest in two months but was lost to follow up. Patient takes thousand twice a day metformin at home, cotinue to hold metformin and start her on low-dose sliding scale and fingersticks at bedtime 3 times a day before meals. We'll continue the rest of her home meds including Lexapro, Nexium, moexipril. DVT prophylaxis according his heparin Patient is full code, son is the power of heel coverer machine operator and has living will which he will give to the employment evaluator/case manager. Problem List: 1. Orthostatic hypotension Pain Ratin Pain Location: na Pain Goal: Remain pain free Pain Plan: na Tomorrow's Labs & Rationales: na
--- NOTE | 2017-09-08 11:02 | PN- Att Addend ---
Attending Addendum Attending Brief Note Patient seen and examined, states that she is feeling okay. Her p.o. intake is slightly better today. She as found to be very orthostatic yesterday and was started on NS. Her Na is improved to 137 today. Vital Signs Date Time Temp Pulse Resp B/P B/P Pulse O2 O2 Flow FiO2 Mean Ox Delivery Rate 09/08 0907 60 130/70 09/08 0620 97.8 60 16 112/60 97 Room Air 09/07 2206 97.6 62 18 108/62 98 Room Air 09/07 1538 Room Air 09/07 1402 97.9 74 18 110/60 100 Room Air on exam; aox3, nad. cv; s1,s2, rrr resp; clear abd; soft, nt, bs+ ext; no edema Laboratory Tests 09/08 09/07 09/07 0746 2140 1614 Chemistry Sodium (137 - 145 mmol/L) 137 Potassium (3.5 - 5.1 mmol/L) 3.3 L Chloride (98 - 107 mmol/L) 103 Carbon Dioxide (22 - 30 mmol/L) 26 Anion Gap (5 - 16) 9 BUN (7 - 17 mg/dL) 5 L Creatinine (0.5 - 1.0 mg/dL) 0.5 Estimated GFR (>60 ml/min) > 60 BUN/Creatinine Ratio (7 - 25 %) 10.0 Cortisol PM Sample (1.7 - 14.1) 12.6 Urines Urine Total Volume Cancelled Urine Free Cortisol Cancelled Urine Creatinine Cancelled A/P; 82 y/o F with pmh sig for pancreatic cancer which was diagnosed in October 2016, status post chemotherapy and Whipple surgery, hypertension, type 2 diabetes mellitus, lung nodules, Alzheimer disease admitted with generalized weakness, poor appetite, hyponatremia likely secondary to polydipsia. Na improved after the fluid restriction. It has improved further after NS IVF resusitation. Pt was very orthostatic yesterday and we give her IV fluids. Will recheck her orthostatics today. Her sodium is improved. Her random cortisol level was normal. I did speak with Dr. Bradley who is her oncologist. According to Dr. Bradley patient had neoadjuvant chemotherapy from March 2019 31 August 2016 and then she had a Whipple's procedure done in September 2016. Last follow-up was in June 2017. She had a repeat CAT scan at that point which showed new pulmonary nodules the possibility of metastatic disease. Patient was given options of either starting chemotherapy right away, versus follow-up in 2 months with a repeat CAT scan versus biopsy. Apparently patient lost follow-up in August and did not show up. No further chemotherapy has been given since last year. I tried to find out from the patient if there is any element of depression. Unfortunately secondary to some dementia and language barrier, she could not understand or tell us any information about depression. We will continue to encourage p.o. intake. I would also speak with patient's family. She has been seen by PT and they have cleared her to go home. Will discuss with case management about her disposition planning. Continue current management. Discussed with patient's son. He is interested in sending mom to short-term rehab.
[2017-09-08 14:08] VITALS: BP 110/70
--- NOTE | 2017-09-08 19:33 | Cons- Cardiology ---
General Information and HPI Consulting Request Date of Consult: 09/08/17 Requested By: Joanna Ragland MD Reason for Consult: Orthostatic hypotension History of Present Illness: The patient is an 82-year-old female with history of pancreatic cancer, hypertension, and diabetes mellitus who was brought to the hospital by family because of weakness and dizziness. The patient has complained of lightheadedness and weakness for the past 1-2 months. She notes recent poor p.o. intake. On the night before admission she was walking through a supermarket and became dizzy, needing to sit down. On evaluation, she was noted to be profoundly orthostatic. She was also found to have significant hyponatremia. She has been treated for 2 days with IV fluid, and she continues to be significantly orthostatic, with blood pressure dropping from 130/70 supine to 66/42 standing. No history of significant cardiac disease. No chest pain. No palpitations. No diaphoresis. No nausea or vomiting Allergies/Medications Allergies: Coded Allergies: donepezil (From NAMZARIC) (VOMITING, GOT SICK 04/17/17) memantine (From NAMZARIC) (VOMITING, GOT SICK 04/17/17) dapagliflozin (From FARXIGA) (Intermediate, CONFUSION 05/02/16) Home Med List: Ascorbic Acid (Vitamin C) 500 MG CAPSULE 1 CAP PO DAILY SUPPLEMENT (Reported) Cyanocobalamin (Vitamin B-12) 1,000 MCG TABLET 1 TAB PO DAILY SUPPLEMENT ( Reported) Ergocalciferol (Vitamin D2) (Vitamin D2) 50,000 UNIT CAPSULE 1 CAP PO QW SUPPLEMENT (Reported) Escitalopram Oxalate (Lexapro) 5 MG TABLET 1 TAB PO DAILY mood (Reported) Esomeprazole (Nexium) 40 MG CAPSULE.DR 1 CAP PO DAILY GI (Reported) Metformin HCl (Metformin HCl ER) 500 MG TAB.ER.24H 2 TAB PO BID DIABETES ( Reported) Moexipril HCl 15 MG TABLET 1 TAB PO QPM BP (Reported) Nitrofurantoin Macrocrystal (Nitrofurantoin) 50 MG CAPSULE 1 CAP PO DAILY PROPHYLAXIS (Reported) Omeprazole 20 MG CAPSULE.DR 1 CAP PO DAILY GI (Reported) Repaglinide 0.5 MG TABLET 1 TAB PO BID DM (Reported) Current Medications: Current Medications Sig/Maxim Start time Last Medication Dose Route Stop Time Status Admin Ascorbic Acid 500 MG DAILY 09/06 0900 AC 09/08 PO 0904 Cyanocobalamin 1,000 MCG DAILY 09/06 0900 AC 09/08 PO 0904 Heparin Sodium 5,000 UNIT Q8 09/06 1400 AC 09/08 (Porcine) SC 1337 Insulin Aspart 0 TIDAC 09/06 1700 AC 09/08 SC 1211 Lisinopril 5 MG DAILY 09/09 0900 AC PO Lisinopril 10 MG DAILY 09/06 1230 DC 09/08 PO 0907 Nitrofurantoin 50 MG DAILY 09/07 1700 AC 09/08 PO 0904 Omeprazole 40 MG DAILY AC 09/06 0700 AC 09/08 PO 0457 Potassium Chloride 40 MEQ ONCE ONE 09/08 1045 DC 09/08 PO 09/08 1046 1208 Sodium Chloride 1,000 ML Q13H 09/07 1315 AC 09/08 IV 0458 Review of Systems Review of Systems: No fever. No chills. No hemoptysis. All other systems were reviewed, and were noted to be negative. Past History Travel History Traveled to [place] past 21 day No Medical History Blood Transfusion Hx: No Neurological: dementia EENT: NONE Cardiovascular: hypertension, hyperlipidemia Respiratory: NONE Gastrointestinal: NONE Hepatic: NONE Renal: NONE Musculoskeletal: falls, OSTEOPOROSIS COMPRESSION FX L1 Psychiatric: NONE Endocrine: diabetes Blood Disorders: NONE Cancer(s): pancreatic cancer BLUEPRINT TRACER/Reproductive: NONE Surgical History Surgical History: WHIPPLE PROCEDURE 09/2016 Family History Family History Reviewed? Family history is negative for premature cardiac disease. Psychosocial History Where Do You Live? Home Who Do You Live With? self Services at Home: Nursing Smoking Status: Never Smoked Exam & Diagnostic Data Vital Signs and I&O Vital Signs Date Time Temp Pulse Resp B/P B/P Pulse O2 O2 Flow FiO2 Mean Ox Delivery Rate 09/08 1408 97.2 76 20 110/70 100 Room Air 09/08 0907 60 130/70 09/08 0620 97.8 60 16 112/60 97 Room Air 09/07 2206 97.6 62 18 108/62 98 Room Air Intake & Output 09/08 1600 09/08 0809/08 0000 09/07 1600 09/07 0000 Intake Total 960 720 740 240 250 Output Total 200 700 300 1 Balance 760 20 440 240 250 -1 Intake, IV 600 600 500 10 Intake, Oral 360 120 240 240 240 Number 1 1 Bowel Movements Output, Stool 1 Output, Urine 200 700 300 Patient 95 lb 8.99 oz 94 lb 9 oz Weight Physical Exam: Gen: The patient is in no acute distress HEENT: Normal nose, ears, and oropharynx. Pupils equal bilaterally. Conjunctiva normal. Neck: Supple with no JVD, no masses, and no thyromegaly Lungs: Clear to auscultation with normal respiratory effort Heart: RRR, S1, S2, no murmurs. No peripheral edema, 2+ pulses in the lower extremities bilaterally Abdomen: Soft, nontender, no masses. No hepatomegaly. No splenomegaly Extremities: No clubbing or cyanosis. Normal muscle strength in the upper and lower extremities Skin: Normal skin turgor with no skin ulcers or lesions noted. Neuro: Cranial nerves intact. Sensation intact Psych: Alert and oriented x 3 with appropriate affect Labs/Ramirez Results: Laboratory Tests 09/08 09/07 09/07 09/07 0746 2140 1614 0600 Chemistry Sodium (137 - 145 mmol/L) 137 132 L Potassium (3.5 - 5.1 mmol/L) 3.3 L 4.0 Chloride (98 - 107 mmol/L) 103 97 L Carbon Dioxide (22 - 30 mmol/L) 26 27 Anion Gap (5 - 16) 9 8 BUN (7 - 17 mg/dL) 5 L 7 Creatinine (0.5 - 1.0 mg/dL) 0.5 0.5 Estimated GFR (>60 ml/min) > 60 > 60 BUN/Creatinine Ratio (7 - 25 %) 10.0 14.0 Cortisol PM Sample (1.7 - 14.1) 12.6 Urines Urine Total Volume Cancelled Urine Free Cortisol Cancelled Urine Creatinine Cancelled Diagnostic Data EKG Results EKG tracing is independently reviewed, and reveals normal sinus rhythm at 63, normal EKG CXR Results Mild probably chronic increased lung markings without focal consolidation. Costophrenic angles are sharp. There is no pneumothorax. Heart mediastinum and lisa unchanged. Assessment/Plan Assessment/Plan The patient is an 82-year-old female with history of pancreatic cancer and diabetes mellitus presenting with lightheadedness dizziness, weakness, and poor appetite. She is noted to have profound orthostatic hypotension which has persisted despite extensive IV hydration. She was noted to have hyponatremia on admission which is improving. This morning she was noted to develop hypokalemia. Recommendations: * Continue IV fluid * Would start fludrocortisone 0.1 mg p.o. daily * Continue to check orthostatics twice a day * Echocardiogram Consult Acknowledgment - Thank you for your consult request.
[2017-09-08 22:11] VITALS: BP 104/70
[2017-09-09 06:08] VITALS: BP 110/68
--- NOTE | 2017-09-09 07:47 | PN- Housestaff ---
Clinton JEAN,Cristel 09/09/17 0746: Subjective Follow-up For: Orthostatic hypotension Subjective: This morning patient states that she feels less dizzy. She was started on fludrocortisone 0.1 mg daily as per cardiology yesterday for severe orthostatic hypotension. Her vitals are within normal limits and she has no other complaints. Review of Systems Constitutional: Reports: no symptoms. Cardiovascular: Reports: no symptoms. Respiratory: Reports: no symptoms. Gastrointestinal: Reports: no symptoms. Musculoskeletal: Reports: no symptoms. Neurological/Psychological: Reports: dementia. Objective Last 24 Hrs of Vital Signs/I&O Vital Signs Date Time Temp Pulse Resp B/P B/P Pulse O2 O2 Flow FiO2 Mean Ox Delivery Rate 09/09 0833 97.5 56 20 110/68 09/09 0608 97.5 56 20 110/68 100 09/08 2211 97.6 57 18 104/70 99 Room Air 09/08 1408 97.2 76 20 110/70 100 Room Air Intake & Output 09/09 1600 09/09 0800 09/09 0000 Intake Total 800 425 Output Total Balance 800 425 Intake, IV 600 225 Intake, Oral 200 200 Number 0 0 Bowel Movements Physical Exam General Appearance: Alert, Cooperative, No Acute Distress Skin Temp/Moisture Exam: Warm/Dry Sepsis Skin Exam (color): Normal for Ethnicity HEENT: Atraumatic, PERRLA, EOMI, Mucous Membr. moist/pink Cardiovascular: Regular Rate, Normal S1, Normal S2 Abdomen: Normal Bowel Sounds, Soft, No Tenderness, No Hepatospenomegaly, No Masses Neurological: Normal Speech, Normal Tone, Sensation Intact, Cranial Nerves 3-12 NL Current Medications: Current Medications Sig/Maxim Start time Last Medication Dose Route Stop Time Status Admin Ascorbic Acid 500 MG DAILY 09/06 09 AC 09/09 PO 0834 Cyanocobalamin 1,000 MCG DAILY 09/06 0900 AC 09/09 PO 0834 Fludrocortisone 100 MCG DAILY 09/09 09 AC 09/09 Acetate PO 0833 Heparin Sodium 5,000 UNIT Q8 09/06 1400 AC 09/09 (Porcine) SC 0525 Insulin Aspart 0 TIDAC 09/06 1700 AC 09/08 SC 1211 Lisinopril 5 MG DAILY 09/09 0900 AC 09/09 PO 0833 Lisinopril 10 MG DAILY 09/06 1230 DC 09/08 PO 0907 Nitrofurantoin 50 MG DAILY 09/07 1700 AC 09/09 PO 0833 Omeprazole 40 MG DAILY AC 09/06 0700 AC 09/09 PO 0525 Sodium Chloride 1,000 ML Q13H 09/07 1315 09/09 IV 1038 Assessment/Plan Assessment: Patient is 82-year-old female with past medical history of pancreatic cancer which was diagnosed in October 2016, status post chemotherapy and Whipple surgery, hypertension, type 2 diabetes mellitus, lung nodules, Alzheimer disease , was brought in by son due to weakness. Son states that last night when they were going to [employer], patient felt dizzy and wanted to sit down. Son states that patient has been feeling very weak and intermittently dizzy since past 1-2 months, she has had a weight loss of 20 pounds since February 2017. She has been having low appetite, and has also been eating less due to her denture problems. Patient also has a history of recurrent UTI, and is maintained on nitrofurantoin 50 mg daily as UTI prophylaxis since July 2017. Of note, patient was seen in ER last week for back pain, and was diagnosed with UTI. Her dose of nitrofurantoin at that time was doubled and patient does not report of any urinary hesitancy/urgency/burning micturition today. Labs and vitals as above. Chest x-ray, increased markings in lungs persistent with the previous imaging report. Assessment and plan We will monitor the patient on general medicine floor for her hyponatremia and increased weakness. Her weight loss could be secondary to her decreased appetite, however given the history of her stage II pancreatic cancer status post treatment, can consider PET scan to evaluate for any secondaries. Patient has a problem with chewing diet due to her dentures, will cnt her on ground soft mechanical diet with thin liquids. The patient's family is requesting STR as they state that they cannot be around and put in the work to care for her at this current time. Patient has a bed in [facility] that she will go to tomorrow. 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 1L free water restriction. Sodium has increased today. Ortho vitals showed severe ortho hypotension. started ns at 75 cc/hr and cortisol level random was normal. Cardiology started the patient on 0.1 mg fludrocortisone and we have ordered an echocardiogram. We will also go ahead with orthostatics twice daily for now. We spoke with her oncologist who stated that the patient did actually have lung mets with the expectation for repeat CT scan chest in two months but was lost to follow up. Patient takes thousand twice a day metformin at home, cotinue to hold metformin and start her on low-dose sliding scale and fingersticks at bedtime 3 times a day before meals. We'll continue the rest of her home meds including Lexapro, Nexium, moexipril. DVT prophylaxis according his heparin Patient is full code, son is the power of trade mark attorney Problem List: 1. Orthostatic hypotension Pain Ratin Pain Location: na Pain Goal: Remain pain free Pain Plan: na Tomorrow's Labs & Rationales: gallito Ragland MD,[facility] 09/09/17 1317: Attending MD Review Statement Attending Statement Attending MD Statement: examined this patient, discuss w/resident/PA/COMPOSITION FLOOR LAYER, agreed w/resident/PA/COMPOSITION FLOOR LAYER, reviewed EMR data (avail), discussed with nursing, discussed with case mgmt, reviewed images, amended to note Attending Assessment/Plan: Patient seen and examined, feels ok. Denies any pain. PO intake is slightly better. Orthostatic vitals are not checked yet. Vital Signs Date Time Temp Pulse Resp B/P B/P Pulse O2 O2 Flow FiO2 Mean Ox Delivery Rate 09/09 0833 97.5 56 20 110/68 09/09 0608 97.5 56 20 110/68 100 09/08 2211 97.6 57 18 104/70 99 Room Air 09/08 1408 97.2 76 20 110/70 100 Room Air on exam; awake, nad. cv; s1, s2, rrr resp; clear abd; soft, nt, bs+ ext; no edema no labs today. A/P: 82 y/o F with pmh sig for pancreatic cancer which was diagnosed in October 2016, status post chemotherapy and Whipple surgery, hypertension, type 2 diabetes mellitus, lung nodules, Alzheimer disease admitted with generalized weakness, poor appetite, hyponatremia. Na levels improved as of yesterday. appreciate cardiology input for significant orthostasis. Fludrocortisone was added per cardiology recommendations. Renny monitor Orthostats. Pt still getting IVfs. Please check BEP today. We have also reduced the dose of her lisinopril. Supine BP stable. Will ecourage PO intake. DVT px; hep sq. Dispo: STR likely tomorrow if orthostats are better. D/W patient's son.
--- NOTE | 2017-09-09 09:14 | Discharge Summary ---
See Addendum Visit Information Visit Dates Admission Date: 09/06/17 Discharge Date: 09/10/17 Hospital Course Course Attending Physician: Joanna Ragland MD Primary Care Physician: Roshan JEAN,Jaime Ridley Hospital Course: Patient is 82-year-old female with past medical history of pancreatic cancer which was diagnosed in October 2016, status post chemotherapy and Whipple surgery, hypertension, type 2 diabetes mellitus, lung nodules, Alzheimer disease , was brought in by son due to weakness. Son states that last night when they were going to [employer], patient felt dizzy and wanted to sit down. Son states that patient has been feeling very weak and intermittently dizzy since past 1-2 months, she has had a weight loss of 20 pounds since February 2017. She has been having low appetite, and has also been eating less due to her denture problems. Patient also has a history of recurrent UTI, and is maintained on nitrofurantoin 50 mg daily as UTI prophylaxis since July 2017. Of note, patient was seen in ER last week for back pain, and was diagnosed with UTI. Her dose of nitrofurantoin at that time was doubled and patient does not report of any urinary hesitancy/urgency/burning micturition on admission. Chest x-ray, increased markings in lungs persistent with the previous imaging report. Patient found to have low sodium of 129 on admission. Hospital Course We admitted the patient on general medicine floor for her hyponatremia and increased weakness. She was started on NS at a rate 75 cc/hr. Her Lexapro was stopped for hyponatremia. She was put on fall precautions. Patient has a problem with chewing diet due to her dentures, so we put her on ground soft mechanical diet with thin liquids. Patient was noted to have a better appetite. 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 1L free water restriction. Sodium rebounded. Call was placed to her oncologist regarding her pancreatic cancer. According to Dr. Horne patient had neoadjuvant chemotherapy from March 2019 31 August 2016 and then she had a Whipple's procedure done in September 2016. Last follow-up was in June 2017. She had a repeat CAT scan at that point which showed new pulmonary nodules the possibility of metastatic disease. Patient was given options of either starting chemotherapy right away, versus follow-up in 2 months with a repeat CAT scan versus biopsy. Apparently patient lost follow-up in August and did not show up. No further chemotherapy has been given since last year. Patient was found to be profoundly orthostatic. She was given the IV fluids and random cortisol level was normal so consult with cardiology was placed. Cardiology started the patient on 0.1 mg fludrocortisone and we have ordered an echocardiogram which is not read at the time of discharge. We also did orthostatics twice daily and discharged her when stable enough on the fludrocortisone. The patient's family is requesting [facility] as they state that they cannot be around and put in the work to care for her at this current time. Patient has a bed in [facility] and is safe for discharge there. 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 Discharge Disposition: SNF Discharge Instructions General Discharge Information Code Status: Do Not Resucitate/Intubat Patient's Diet: regular Patient's Activity: as tolerated Follow-Up Instructions/Appts: 1. please follow up with your pcp in one week 2. please follow up with oncologist Dr. Anne Horne in 1-2 weeks Medications at Discharge Discharge Medications: Stop taking the following medications: Escitalopram Oxalate (Lexapro) 5 MG TABLET ORAL DAILY Nitrofurantoin Macrocrystal (Nitrofurantoin) 50 MG CAPSULE ORAL DAILY Qty = 60 Continue taking these medications: Metformin HCl (Metformin HCl ER) 500 MG TAB.ER.24H 2 Tablet ORAL TWICE DAILY Qty = 180 Comments: NOT GIVEN IN HOSPITAL Moexipril HCl (Moexipril HCl) 15 MG TABLET 1 Tablet ORAL Every night Qty = 180 Comments: NOT GIVEN IN HOSPITAL Omeprazole (Omeprazole) 20 MG CAPSULE.DR 1 Capsule ORAL DAILY Qty = 90 Comments: Last Taken:09/10/17 Time:6AM Repaglinide (Repaglinide) 0.5 MG TABLET 1 Tablet ORAL TWICE DAILY Qty = 270 Comments: NOT GIVEN Ergocalciferol (Vitamin D2) (Vitamin D2) 50,000 UNIT CAPSULE 1 Capsule ORAL Once a Week Qty = 4 Comments: NOT GIVEN Cyanocobalamin (Vitamin B-12) 1,000 MCG TABLET 1 Tablet ORAL DAILY Comments: Last Taken:09/10/17 Time:8AM Ascorbic Acid (Vitamin C) 500 MG CAPSULE 1 Capsule ORAL DAILY Comments: Last Taken:09/10/17 Time:8AM Start taking the following new medications: Fludrocortisone Acetate (Fludrocortisone Acetate) 0.1 MG TABLET 100 Microgram ORAL DAILY Qty = 30 No Refills Comments: Last Taken:09/10/17 Time:8AM Copies To: Roshan JEAN,Jaime Horne MD,Anne Attending MD Review Statement Other Findings: Patient to follow up with Dr. Mcguire as outpatient for orthostasis. She is asymptomatic therefore she is considered medically stable for discharge and further follow and uptitration on flucortisone will be done as outpatient with the shoe stamper.
--- NOTE | 2017-09-09 12:11 | Patient Discharge Instructions ---
Discharge Instructions General Discharge Information You were seen/treated for: weakness dizziness orthostatic hypotension Special Instructions: 1. please follow up with your oncologist in 2 weeks 2. please follow up with your pcp in 1 week Diet Continue normal diet: Yes Activity Full Activity/No Limits: Yes Acute Coronary Syndrome Inclusion Criteria At DC or during hospital stay patient has or had the following: ACS DIAGNOSIS No Discharge Core Measures Meds if any: Prescribed or Continued at Discharge Meds if any: NOT Prescribed or Continued at Discharge Congestive Heart Failure Inclusion Criteria At DC or during hospital stay patient has or had the following: CHF DIAGNOSIS No Discharge Core Measures Meds if any: Prescribed or Continued at Discharge Meds if any: NOT Prescribed or Continued at Discharge Cerebrovascular accident Inclusion Criteria At DC or during hospital stay patient has or had the following: CVA/TIA Diagnosis No Discharge Core Measures Meds if any: Prescribed or Continued at Discharge Meds if any: NOT Prescribed or Continued at Discharge Venous thromboembolism Inclusion Criteria VTE Diagnosis No VTE Type NONE VTE Confirmed by (Test) NONE Discharge Core Measures - Per Current guidelines, there needs to be overlap - treatment for the first 5 days of Warfarin therapy. - If discharged on Warfarin prior to 5 days of - overlap therapy, the patient will need to be - assessed for post discharge needs including - *Post discharge parental anticoagulation - *Warfarin and/or parental anticoagulation education - *Follow up date to check INR post discharge At least 5 days overlap therapy as Inpatient No Meds if any: Prescribed or Continued at Discharge Note: Overlap Therapy is Warfarin and Anticoagulant Meds if any: NOT Prescribed or Continued at Discharge
[2017-09-09 13:31] VITALS: BP 120/60
[2017-09-09 13:32] VITALS: BP 120/60
--- NOTE | 2017-09-09 19:29 | PN- Cardiology ---
Subjective Subjective: The patient reports that she is feeling better. Lightheadedness and dizziness have improved. She continues to be orthostatic. No chest pain. No palpitations. No diaphoresis Objective Vital Signs and I&Os Vital Signs Date Time Temp Pulse Resp B/P B/P Pulse O2 O2 Flow FiO2 Mean Ox Delivery Rate 09/09 1332 97.7 66 20 120/60 99 Room Air 09/09 1331 66 120/60 09/09 0833 97.5 56 20 110/68 09/09 0608 97.5 56 20 110/68 100 09/08 2211 97.6 57 18 104/70 99 Room Air Intake & Output 09/09 1600 09/09 0800 09/09 0000 09/08 1600 09/08 0800 09/08 0000 Intake Total 1500 800 425 960 720 740 Output Total 200 700 300 Balance 1500 800 425 760 20 440 Intake, IV 700 600 225 600 600 500 Intake, Oral 800 200 200 360 120 240 Number 0 0 1 Bowel Movements Output, Urine 200 700 300 Patient 95 lb 8.99 oz 94 lb 9 oz Weight Physical Exam: Gen: The patient is in no acute distress HEENT: Normal nose, ears, and oropharynx. Pupils equal bilaterally. Conjunctiva normal. Neck: Supple with no JVD, no masses, and no thyromegaly Lungs: Clear to auscultation with normal respiratory effort Heart: RRR, S1, S2, no murmurs. No peripheral edema, 2+ pulses in the lower extremities bilaterally Abdomen: Soft, nontender, no masses. No hepatomegaly. No splenomegaly Extremities: No clubbing or cyanosis. Normal muscle strength in the upper and lower extremities Skin: Normal skin turgor with no skin ulcers or lesions noted. Neuro: Cranial nerves intact. Sensation intact Current Medications: Current Medications Sig/Maxim Start time Last Medication Dose Route Stop Time Status Admin Ascorbic Acid 500 MG DAILY 09/06 899 AC 09/09 PO 0834 Cyanocobalamin 1,000 MCG DAILY 09/06 899 AC 09/09 PO 0834 Fludrocortisone 100 MCG DAILY 09/09 899 AC 09/09 Acetate PO 0833 Heparin Sodium 5,000 UNIT Q8 09/06 1400 AC 09/09 (Porcine) SC 1347 Insulin Aspart 0 TIDAC 09/06 1700 AC 09/09 SC 1711 Lisinopril 5 MG DAILY 09/09 0900 AC 09/09 PO 0833 Nitrofurantoin 50 MG DAILY 09/07 1700 AC 09/09 PO 0833 Omeprazole 40 MG DAILY AC 09/06 0700 AC 09/09 PO 0525 Patient Medication 1 ED ONE ONE 09/09 1645 DC 09/09 Teaching ED 09/09 1646 1712 Sodium Chloride 1,000 ML Q13H 09/07 1315 AC 09/09 IV 1038 Results Last 48 Hrs of Labs/Mics: Laboratory Tests 09/08/17 0746: Anion Gap 9, Estimated GFR > 60, BUN/Creatinine Ratio 10.0 09/07/17 2140: Cortisol PM Sample 12.6 Assessment/Plan Assessment/Plan Assessment: 1. Pancreatic cancer 2. Diabetes mellitus 3. Orthostatic hypotension 4. Hypokalemia, improved Plan: * Continue fludrocortisone * Continue IV fluid * Check orthostatics twice a day * Continue other medications Continue telemetry? Not applicable
[2017-09-09 22:05] VITALS: BP 116/60
--- NOTE | 2017-09-10 04:14 | Event Note ---
Event Note Event Note: Situation: Rapid response called around 4 AM . On arrival patient was found on the floor in the neighboring room. On assessment patient was oriented to person and date of . Apparently she was attempting to go to the bathroom on her own. Vitals blood pressure 139/95, heart rate 82, respiratory 20, saturating 100% on examination no trauma on the head noted, CVS S1-S2, RS clear to auscultation. Patient was able to get up and walk back to her room with no issues. Per nursing apparently there was a bed alarm in place. Background: 82 pmh sig for pancreatic cancer which was diagnosed in October 2016, status post chemotherapy and Whipple surgery, hypertension, type 2 diabetes mellitus, lung nodules, Alzheimer disease admitted with generalized weakness, poor appetite, hyponatremia. Recommendation: No imaging required at this time as there was no trauma to head noted on examination and she was able to weight bear for her full weight while walking without any difficulties. Call monitor placed Attending was present during the rapid response.
[2017-09-10 04:49] VITALS: BP 130/95
[2017-09-10 07:01] VITALS: BP 120/70
--- NOTE | 2017-09-10 07:21 | PN- Housestaff ---
Subjective Follow-up For: Orthostatic hypotension Subjective: Patient states that she feels "okay" she has been eating better and states that she likes the food here. Overnight she had an event where she was found sitting on the floor of her neighbors room with her pants down attempting to go to the bathroom. She was alert and oriented to person and her birthday. She was able to get up and walk straight to her room without dizziness. This morning she notes that she still is a little dizzy. Her blood pressure on laying is 150/90 but dipped down to 85/50 on standing even on 0.1 mg of fludrocortisone. Review of Systems Constitutional: Reports: weakness. Cardiovascular: Reports: no symptoms. Respiratory: Reports: no symptoms. Gastrointestinal: Reports: no symptoms. Musculoskeletal: Reports: no symptoms. Neurological/Psychological: Reports: dementia. Objective Last 24 Hrs of Vital Signs/I&O Vital Signs Date Time Temp Pulse Resp B/P B/P Pulse O2 O2 Flow FiO2 Mean Ox Delivery Rate 09/10 1343 97.4 78 20 100/60 97 Room Air 09/10 0929 64 130/70 09/10 0809 97.7 64 20 120/70 09/10 0701 97.7 64 20 120/70 99 Room Air 09/10 0449 82 20 130/95 09/10 0409 100 Room Air 09/09 2205 97.8 65 20 116/60 99 Room Air Intake & Output 09/10 1600 09/10 0800 09/10 0000 Intake Total 130 540 Output Total 300 Balance -170 540 Intake, IV 10 300 Intake, Oral 120 240 Output, Urine 300 Physical Exam General Appearance: Alert, Cooperative, No Acute Distress Skin Temp/Moisture Exam: Warm/Dry HEENT: Atraumatic, PERRLA, EOMI, Mucous Membr. moist/pink Cardiovascular: Regular Rate, Normal S1, Normal S2 Lungs: Clear to Auscultation, Normal Air Movement Abdomen: Normal Bowel Sounds, Soft, No Tenderness Extremities: No Clubbing, No Cyanosis, No Edema, Normal Pulses Current Medications: Current Medications Sig/Maxim Start time Last Medication Dose Route Stop Time Status Admin Acetaminophen 650 MG ONCE ONE 09/095 DC 09/09 PO 09/09 2345 234 Ascorbic Acid 500 MG DAILY 09/06 899 AC 09/10 PO 0809 Cyanocobalamin 1,000 MCG DAILY 09/06 899 AC 09/10 PO 0809 Fludrocortisone 100 MCG DAILY 09/09 0900 AC 09/10 Acetate PO 0809 Heparin Sodium 5,000 UNIT Q8 09/06 1400 AC 09/10 (Porcine) SC 1338 Insulin Aspart 0 TIDAC 09/06 1700 AC 09/10 SC 1216 Lisinopril 5 MG DAILY 09/09 0900 AC 09/10 PO 0809 Nitrofurantoin 50 MG DAILY 09/07 1700 AC 09/10 PO 0809 Omeprazole 40 MG DAILY AC 09/06 0700 AC 09/10 PO 0601 Patient Medication 1 ED ONE ONE 09/09 1645 DC 09/09 Teaching ED 09/09 1646 1712 Potassium Chloride 40 MEQ ONCE ONE 09/10 1500 DC 09/10 PO 09/10 1501 1528 Sodium Chloride 1,000 ML Q13H 09/07 1315 DC 09/09 IV 1038 Last 24 Hrs of Lab/Ramirez Results Last 24 Hrs of Labs/Mics: Laboratory Tests 09/10/17 1135: Anion Gap 8, Estimated GFR > 60, BUN/Creatinine Ratio 10.0 Assessment/Plan Assessment: Patient is 82-year-old female with past medical history of pancreatic cancer which was diagnosed in October 2016, status post chemotherapy and Whipple surgery, hypertension, type 2 diabetes mellitus, lung nodules, Alzheimer disease , was brought in by son due to weakness. Son states that last night when they were going to [employer], patient felt dizzy and wanted to sit down. Son states that patient has been feeling very weak and intermittently dizzy since past 1-2 months, she has had a weight loss of 20 pounds since February 2017. She has been having low appetite, and has also been eating less due to her denture problems. Patient also has a history of recurrent UTI, and is maintained on nitrofurantoin 50 mg daily as UTI prophylaxis since July 2017. Of note, patient was seen in ER last week for back pain, and was diagnosed with UTI. Her dose of nitrofurantoin at that time was doubled and patient does not report of any urinary hesitancy/urgency/burning micturition today. Labs and vitals as above. Chest x-ray, increased markings in lungs persistent with the previous imaging report. Assessment and plan We admitted the patient on general medicine floor for her hyponatremia and increased weakness. She was started on NS at a rate 75 cc/hr. Her Lexapro was stopped for hyponatremia. She was put on fall precautions. Patient has a problem with chewing diet due to her dentures, so we put her on ground soft mechanical diet with thin liquids. Patient was noted to have a better appetite. 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 1L free water restriction. Sodium rebounded. Call was placed to her oncologist regarding her pancreatic cancer. According to Dr. Horne patient had neoadjuvant chemotherapy from March 2019 31 August 2016 and then she had a Whipple's procedure done in September 2016. Last follow-up was in June 2017. She had a repeat CAT scan at that point which showed new pulmonary nodules the possibility of metastatic disease. Patient was given options of either starting chemotherapy right away, versus follow-up in 2 months with a repeat CAT scan versus biopsy. Apparently patient lost follow-up in August and did not show up. No further chemotherapy has been given since last year. Patient was found to be profoundly orthostatic. She was given the IV fluids and random cortisol level was normal so consult with cardiology was placed. Cardiology started the patient on 0.1 mg fludrocortisone and we have ordered an echocardiogram which is not read at the time of discharge. We also did orthostatics twice daily and discharged her when stable enough on the fludrocortisone. The patient's family is requesting [facility] as they state that they cannot be around and put in the work to care for her at this current time. Patient has a bed in [facility] and is safe for discharge there. Patient will be referred to Dr. Mcguire for follow-up of her severe orthostatic hypotension refractory to fludrocortisone 0.1 mg. Problem List: 1. Orthostatic hypotension Pain Ratin Pain Location: na Pain Goal: Remain pain free Pain Plan: na Tomorrow's Labs & Rationales: na
[2017-09-10 09:29] VITALS: BP 130/70
[2017-09-10] MEDS ORDERED: FLUDROCORTISON0.1 M1 PO (10:41)
[2017-09-10] MEDS ORDERED: MOEXIPRIL HCL7.5 MG PO (11:10)
--- NOTE | 2017-09-10 12:24 | PN- Att Addend ---
Attending Addendum Attending Brief Note Patient seen and examined, feels ok. Noted event note from last night. Still orthostatic but symptoms are better. Vital Signs Date Time Temp Pulse Resp B/P B/P Pulse O2 O2 Flow FiO2 Mean Ox Delivery Rate 09/10 0929 64 130/70 09/10 0809 97.7 64 20 120/70 09/10 0701 97.7 64 20 120/70 99 Room Air 09/10 0449 82 20 130/95 09/10 0409 100 Room Air 09/09 2205 97.8 65 20 116/60 99 Room Air 09/09 1332 97.7 66 20 120/60 99 Room Air 09/09 1331 66 120/60 on exam; awake, nad. cv; s1,s2, rrr resp; clear abd; soft, nt, bs+ ext; no edema Labs; Pending. A/P; 82 y/o F with pmh sig for pancreatic cancer which was diagnosed in October 2016, status post chemotherapy and Whipple surgery, hypertension, type 2 diabetes mellitus, lung nodules, Alzheimer disease admitted with generalized weakness, poor appetite, hyponatremia. Patient has been started on fludrocortisone. Her supine blood pressure is going up. Will continue her on her home dose of RADHA inhibitor. She still orthostatic but not as symptomatic. She is going to be discharged to rehab and will continue to encourage p.o. intake. Patient should follow-up with her oncologist as an outpatient. Repeat labs show sodium was stable and patient had low potassium. We give her some potassium. She was also consistently orthostatic although not symptomatic. Discussed with armored service technician Dr. Torres. He recommends follow-up as an outpatient to see if fludrocortisone dose will need to be adjusted in near future but not right away. Patient otherwise medically stable for discharge to rehab. Will follow up with Dr. Mcguire as an outpatient.
[2017-09-10 13:43] VITALS: BP 100/60
--- NOTE | 2017-09-10 15:06 | PN- Cardiology ---
Subjective Subjective: Lightheadedness and dizziness improving. No chest pain. No palpitations. No diaphoresis. Objective Vital Signs and I&Os Vital Signs Date Time Temp Pulse Resp B/P B/P Pulse O2 O2 Flow FiO2 Mean Ox Delivery Rate 09/10 1620 97.4 78 20 100/60 09/10 1343 97.4 78 20 100/60 97 Room Air 09/10 0929 64 130/70 09/10 0809 97.7 64 20 120/70 09/10 0701 97.7 64 20 120/70 99 Room Air 09/10 0449 82 20 130/95 09/10 0409 100 Room Air 09/09 2205 97.8 65 20 116/60 99 Room Air Intake & Output 09/10 1600 09/10 0800 09/10 0000 09/09 1600 09/09 0809/09 0000 Intake Total 498 434 0989 800 425 Output Total 300 Balance -509 714 2030 800 425 Intake, IV 10 300 700 600 225 Intake, Oral 120 240 800 200 200 Number 0 0 Bowel Movements Output, Urine 300 Physical Exam: Gen: The patient is in no acute distress HEENT: Normal nose, ears, and oropharynx. Pupils equal bilaterally. Conjunctiva normal. Neck: Supple with no JVD, no masses, and no thyromegaly Lungs: Clear to auscultation with normal respiratory effort Heart: RRR, S1, S2, no murmurs. No peripheral edema, 2+ pulses in the lower extremities bilaterally Abdomen: Soft, nontender, no masses. No hepatomegaly. No splenomegaly Extremities: No clubbing or cyanosis. Normal muscle strength in the upper and lower extremities Skin: Normal skin turgor with no skin ulcers or lesions noted. Neuro: Cranial nerves intact. Sensation intact Current Medications: Current Medications Sig/Maxim Start time Last Medication Dose Route Stop Time Status Admin Acetaminophen 650 MG ONCE ONE 09/09 2345 DC 09/09 PO 09/09 2346 2349 Ascorbic Acid 500 MG DAILY 09/06 09 AC 09/10 PO 0809 Cyanocobalamin 1,000 MCG DAILY 09/06 09 AC 09/10 PO 0809 Fludrocortisone 100 MCG DAILY 09/09 09 AC 09/10 Acetate PO 0809 Heparin Sodium 5,000 UNIT Q8 09/06 1400 AC 09/10 (Porcine) SC 1338 Insulin Aspart 0 TIDAC 09/06 1700 AC 09/10 SC 1708 Lisinopril 5 MG DAILY 09/09 0900 AC 09/10 PO 0809 Nitrofurantoin 50 MG DAILY 09/07 1700 AC 09/10 PO 0809 Omeprazole 40 MG DAILY AC 09/06 0700 AC 09/10 PO 0601 Potassium Chloride 40 MEQ ONCE ONE 09/10 1500 DC 09/10 PO 09/10 1501 1528 Sodium Chloride 1,000 ML Q13H 09/07 1315 DC 09/09 IV 1038 Results Last 48 Hrs of Labs/Mics: Laboratory Tests 09/10/17 1135: Anion Gap 8, Estimated GFR > 60, BUN/Creatinine Ratio 10.0 Assessment/Plan Assessment/Plan Assessment: 1. Pancreatic cancer 2. Diabetes mellitus 3. Orthostatic hypotension 4. Hypokalemia, improved Plan: * Continue fludrocortisone * Check orthostatics twice a day * Likely ready for discharge soon. Fludrocortisone may be titrated as an outpatient depending on symptoms. * Continue telemetry? Yes
[2017-09-10 16:20] VITALS: BP 100/60
--- NOTE | 2017-09-10 20:45 | ECHOCARDIOGRAM REPORT ---
HARRIS SANTAMARIA Age: 82 : 1935 Gender: F Exam Date: 09/09/2017 19:55 Exam Location: [address] Ht (in): 60 Wt (lb): 95 BSA: 1.35 BP: 110 / 68 Ordering Physician: Gracy Virgen MD Referring Physician: Zachary Mcguire MD Technologist: Milagros Ghosh [facility] Room Number: 222 Indications: Heart failure Rhythm: Sinus Technical Quality: Good FINDINGS Left Ventricle Normal size left ventricle. Normal left ventricular ejection fraction visually estimated at >60%. No obvious regional wall motion abnormalities. Abnormal relaxation filling pattern of the left ventricle for age (stage 1 diastolic dysfunction). Right Ventricle Normal right ventricular size and function. Right Atrium Normal right atrial size. Left Atrium Normal left atrial size. Mitral Valve Mitral annular calcification. Mitral valve thickened. Trace mitral regurgitation. Aortic Valve Diffuse thickening (sclerosis) of the aortic valve cusps without reduced excursion. No aortic stenosis. No aortic regurgitation. Tricuspid Valve Tricuspid valve not well visualized, grossly normal. No evidence of pulmonary hypertension. Trace tricuspid regurgitation. Pulmonic Valve Pulmonic valve not well visualized, grossly normal. Mild pulmonic regurgitation. Pericardium No pericardial effusion. Great Vessels Normal size aortic root. CONCLUSIONS Normal size left ventricle. Normal left ventricular ejection fraction visually estimated at > 60%. No obvious regional wall motion abnormalities. Abnormal relaxation filling pattern of the left ventricle for age (stage 1 diastolic dysfunction). Trace mitral regurgitation. Trace tricuspid regurgitation. Mild pulmonic regurgitation. Zachary Mcguire M.D. (Electronically Signed) Final Date: 10 September 2017 20:44 MEASUREMENTS (Male / Female) Normal Values 2D ECHO LV Diastolic Diameter PLAX 3.6 cm 4.2 - 5.9 / 3.9 - 5.3 cm LV Systolic Diameter PLAX 2.1 cm 2.1 - 4.0 cm LV Fractional Shortening PLAX 41.7 % 25 - 46 % LV Ejection Fraction 2D Teich 73.5 % IVS Diastolic Thickness 0.8 cm LVPW Diastolic Thickness 0.9 cm LV Relative Wall Thickness 0.5 RV Internal Dim ED PLAX 2.3 cm 1.9 - 3.8 cm LVOT Diameter 1.9 cm Aortic Root Diameter 2.5 cm LA Systolic Diameter LX 2.3 cm 3.0 - 4.0 / 2.7 - 3.8 cm LA Volume 14.0 cm 18 - 58 / 22 - 52 cm Ascending Aorta Diameter 2.7 cm DOPPLER AV Peak Velocity 118.0 cm/s AV Peak Gradient 5.6 mmHg AV Mean Velocity 83.0 cm/s AV Mean Gradient 3.0 mmHg AV Velocity Time Integral 25.7 cm LVOT Peak Velocity 73.7 cm/s LVOT Peak Gradient 2.2 mmHg LVOT Mean Velocity 54.6 cm/s LVOT Mean Gradient 1.0 mmHg LVOT Velocity Time Integral 16.1 cm LVOT Stroke Volume 45.6 cm AV Area Cont Eq vti 1.8 cm AV Area Cont Eq pk 1.8 cm MV Peak Velocity 105.0 cm/s MV Peak Gradient 4.4 mmHg MV Mean Velocity 57.4 cm/s MV Mean Gradient 1.0 mmHg Mitral E Point Velocity 54.3 cm/s Mitral A Point Velocity 85.4 cm/s Mitral E to A Ratio 0.6 MV PHT Velocity 70.8 cm/s MV Deceleration [place] 140.0 cm/s MV Pressure Half Time 151.7 ms MV Area PHT 1.5 cm MV Deceleration Time 440.0 ms TR Peak Velocity 74.7 cm/s TR Peak Gradient 2.2 mmHg Right Atrial Pressure 5.0 mmHg Pulmonary Artery Systolic Pressure 7.2 mmHg Right Ventricular Systolic Pressure 7.2 mmHg PV Peak Velocity 67.2 cm/s PV Peak Gradient 1.8 mmHg PV Mean Velocity 53.4 cm/s PV Mean Gradient 1.0 mmHg PV Velocity Time Integral 17.0 cm LV E' Lateral Velocity 6.8 cm/s Mitral E to LV E' Lateral Ratio 8.0 LV E' Septal Velocity 5.5 cm/s Mitral E to LV E' Septal Ratio 9.9
== END 2017-09-10 18:30 | DRG 312 ==
LOC: ERH 20:20 → 2NA 09-06 10:20 → ERHI 09-06 10:20 → ENRESERV 09-06 11:52 → ENTRNSPT 09-06 12:41 → EDTRNSPTSTS 09-06 13:01 → EDTRNSPT 09-06 13:01 → 2NA 09-06 13:04 → CMPTRNSPT 09-06 13:16 → ENPENDDIS 09-10 15:10 → 2NA 09-10 18:30
PROVIDERS: Internal Medicine
DX: I95.1 Orthostatic hypotension (principal); E87.1 Hypo-osmolality and hyponatremia; Z68.1 Body mass index [BMI] 19.9 or less, adult; I10 Essential (primary) hypertension; Z85.07 Personal history of malignant neoplasm of pancreas; Z91.81 History of falling; M81.0 Age-related osteoporosis without current pathological fracture; Z87.310 Personal history of (healed) osteoporosis fracture; E11.9 Type 2 diabetes mellitus without complications; Z79.84 Long term (current) use of oral hypoglycemic drugs; G30.9 Alzheimer's disease, unspecified; F02.80 Dementia in other diseases classified elsewhere, unspecified severity, without behavioral disturbance, psychotic disturbance, mood disturbance, and anxiety; R53.1 Weakness; R63.4 Abnormal weight loss; R63.1 Polydipsia; E87.6 Hypokalemia; Z66 Do not resuscitate; E78.5 Hyperlipidemia, unspecified; Z92.21 Personal history of antineoplastic chemotherapy
CPT/HCPCS: 2NAP; 82530; 84133; 84300; 36415; 36592; 71045; 81003; 82436; 82570; 93005; 93010; 93306; 94799; 97116-GO; 97161-GP; J1644

== ENCOUNTER 2017-11-09 13:41 | Emergency (ER) | payer OTHER, MEDICARE ==
[~2017-11-09] VITALS: Ht 142.2 cm; Wt 38.6 kg
[~2017-11-09 13:41] MED LIST changes: +FLUDROCORTISON0.1 M1 PO; +MOEXIPRIL HCL7.5 MG PO
--- NOTE | 2017-11-09 15:23 | RADIOLOGY REPORT ---
EXAMINATION: XR CHEST CLINICAL INFORMATION: Syncope/seizure. History of falls. COMPARISON: CXR from 10/16/[address] from 04/17/2017. TECHNIQUE: 2 views of the chest were obtained. FINDINGS: Lungs are well expanded. There is wall calcification of the bronchial tree - relatively common finding in elderly patients. Several small pulmonary nodules are seen, but these are more clearly defined on the prior chest CT exam of 04/17/2017. No acute focal interstitial infiltrate, consolidation or pleural effusion. Cardiac silhouette remains normal in size. The hilar contours are normal. There is atherosclerotic calcification of the aorta. The bones are diffusely osteoporotic. The hemangioma the T9 vertebral body is more clearly seen on the prior chest CT exam. Old, mild compression deformity of the L1 vertebral body. No acute findings in the degenerated spine. IMPRESSION: No acute pulmonary disease compared to 04/17/2017.
[2017-11-09 15:33] LABS: ABSOLUTE BASOPHIL COUNT 0 /CUMM (0.0-0.2); ABSOLUTE EOSINOPHIL COUNT 0 /CUMM (0.0-0.7); ABSOLUTE GRANULOCYTE CT 2.5 /CUMM (1.4-6.5); ABSOLUTE LYMPH COUNT 1.3 /CUMM (1.2-3.4); ABSOLUTE MONOCYTE COUNT 0.2 /CUMM (0.10-0.60); BASOPHIL % 0.2 % (0.0-2.0); EOSINOPHIL % 0.4 % (0-5); GRANULOCYTE % 62.1 % (42.2-75.2); HEMATOCRIT 40.5 % (37-47); MEAN CORPUSCULAR HGB 30.7 PG (27.0-31.0); MEAN CORPUSCULAR HGB CONC 33.8 G/DL (33.0-37.0); MEAN PLATELET VOLUME 8.1 FL (7.4-10.4); PLATELET COUNT 253 /CUMM (130-400); RBC DISTRIBUTION WIDTH 15.7 % (11.5-14.5); RED BLOOD CELL CT 4.45 /CUMM (4.20-5.40)
--- NOTE | 2017-11-09 15:36 | CT SCAN REPORT ---
EXAMINATION: CT HEAD WITHOUT CONTRAST CT CERVICAL SPINE WITHOUT CONTRAST CLINICAL INFORMATION: Fall. Possible seizure. COMPARISON: CT head 10/16/2017 TECHNIQUE: Imaging was performed from the skull base to vertex without intravenous administration of contrast. In addition, helical noncontrast CT imaging was acquired through the cervical spine and source images were reviewed along with axial reconstructions and sagittal and coronal MPRs. DLP: 851.78 mGy-cm FINDINGS: HEAD: No intracranial mass, hemorrhage, or midline shift is visualized. There is atrophy with prominence of the ventricles and the sulci and hypodensity of the periventricular white matter due to chronic small vessel ischemic disease. There is vascular calcifications of the internal carotid arteries bilaterally. No extra-axial collections are identified. The paranasal sinuses and mastoid air cells are well aerated. CERVICAL SPINE: There is no evidence of acute cervical spine fracture. Vertebral bodies remain normal in height. Cervical vertebrae have normal alignment. There is multilevel degenerative spondylosis of the cervical spine with disc height narrowing and endplate spurs and facet joint arthrosis The thyroid is heterogeneous and lobular in contour with multiple low attenuating nodules. ( The thyroid has been previously assessed on 03/22/2017. A thyroid biopsy was performed on 04/09/2017.) There is vascular wall calcification of the carotid arteries at the carotid artery bifurcation bilaterally. Limited assessment of the lung apices is unremarkable. IMPRESSION: 1. No acute intracranial pathology. 2. No CT evidence of acute cervical spine fracture or traumatic subluxation
--- NOTE | 2017-11-09 16:20 | ED GENERAL ADULT ---
History of Present Illness General Chief Complaint: General Adult Stated Complaint: BIBA WEAKNESS Source: patient, family Exam Limitations: no limitations Vital Signs & Intake/Output Vital Signs & Intake/Output Vital Signs Date Time Temp Pulse Resp B/P B/P Pulse O2 O2 Flow FiO2 Mean Ox Delivery Rate 11/10 1145 98.4 80 20 106/62 99 Room Air 11/10 0840 98.0 79 20 100/60 99 Room Air 11/10 0505 97.5 68 20 189/79 99 Room Air 11/10 0033 96.9 84 22 166/79 97 Room Air 11/09 2220 Room Air 11/09 1936 Room Air 11/09 1816 70 18 177/83 96 Room Air 11/09 1413 96.4 86 16 95/67 96 ED Intake and Output 11/10 0000 11/09 1200 Intake Total 300 Output Total 200 Balance 100 Intake, IV 300 Number 1 Bowel Movements Output, Urine 200 Patient 84 lb 15.99 oz Weight Weight Reported by Patient Measurement Method Allergies Coded Allergies: donepezil (From NAMZARIC) (VOMITING, GOT SICK 04/17/17) memantine (From NAMZARIC) (VOMITING, GOT SICK 04/17/17) dapagliflozin (From FARXIGA) (Intermediate, CONFUSION 05/02/16) Reconcile Medications Ascorbic Acid (Vitamin C) 500 MG CAPSULE 1 CAP PO DAILY SUPPLEMENT (Reported) Cyanocobalamin (Vitamin B-12) 1,000 MCG TABLET 1 TAB PO DAILY SUPPLEMENT ( Reported) Ergocalciferol (Vitamin D2) (Vitamin D2) 50,000 UNIT CAPSULE 1 CAP PO QW SUPPLEMENT (Reported) Fludrocortisone Acetate 0.1 MG TABLET 100 MCG PO DAILY orthostatic hypotension Metformin HCl (Metformin HCl ER) 500 MG TAB.ER.24H 2 TAB PO BID DIABETES ( Reported) Moexipril HCl 15 MG TABLET 1 TAB PO QPM BP (Reported) Omeprazole 20 MG CAPSULE.DR 1 CAP PO DAILY GI (Reported) Repaglinide 0.5 MG TABLET 1 TAB PO BID DM (Reported) Triage Note: PT STATES THAT SHE FELL OUT OF HER CHAIR, PT BIBA FROM HOME. PER EMS PT SLIDE OUT OF CHAIR AND LANDED ON BOTTOM. PT C/O BACK PAIN. PT DOES NOT SPEAK THAI. PER FAMILY PT BLOOD SUGAR WAS 90 AND FAMILY GAVE HER OJ AND THE BLOOD SUGAR INCREASED TO 155. PT HAS HX OF CHRONIC BACK PAIN. PT FAMILY STATES THAT PT HAD A SEIZURE, PER FAMILY SHE WAS SHAKING FOR 2 MINUTES AND SLID OUT OF CHAIR. PT FAMILY STATES THAT PT FEELS DIZZY A LOT. PT STATES THAT SHE FEELS TIRED WEAK, NO ENERFY AND NO APPETITE. PT WAS SEEN AT [facility]ST FOR THE DAME REASON. PT STATES THAT SHE HAS PAIN IN HER LEGS AND STATES THAT SHE HAS OUZINKIE PAIN IN HER CHEST. PT IS BHUTANESE SPEAKING. Triage Nurses Notes Reviewed? yes Onset: Gradual Duration: week(s): Timing: recent history Injury Environment: home HPI: 82yo female with hx of DM, dementia, HTN presents to ED in care of daughter complaining of "seizure" activity at home today. Daughter states that the patient left the bathroom and was sitting in a chair and she began having twitching/convulsing movements of arms, legs, head slid out of the chair onto the ground. This episode lasted for about seconds to 1 minute and then ended however patient seemed confused/disoriented following the episode. Daughter states that the patient was not responsive or communicating during the episode. Patient has had two prior episodes in the past, she was seen at [facility] last week for the same symptoms and discharged home. Per daughter, patient was recently in an assisted care facility, was developing depression so the daughter took her back home a few weeks ago. Daughter states the patient had about 4 falls while in the assisted living. Daughter states the patient has been more weak and depressed since her time at the assisted living. She also states her mother refuses to eat much. Patient complains of low back pain, hip pain. (Magdalena Cortes) Past History Travel History Traveled to [place] past 21 day No Medical History Any Pertinent Medical History? see below for history Neurological: dementia EENT: NONE Cardiovascular: hypertension, hyperlipidemia Respiratory: NONE Gastrointestinal: NONE Hepatic: NONE Renal: NONE Musculoskeletal: falls, OSTEOPOROSIS COMPRESSION FX L1 Psychiatric: NONE Endocrine: diabetes Blood Disorders: NONE Cancer(s): pancreatic cancer BACKUP ENGINEER/Reproductive: NONE History of MRSA: No History of VRE: No History of CDIFF: No Surgical History Surgical History: WHIPPLE PROCEDURE 09/2016 Psychosocial History Who do you live with Patient/Self Services at Home Nursing What is your primary language [place] Tobacco Use: Never used Family History Hx Contributory? No (Magdalena Cortes) Review of Systems Review of Systems Constitutional: Reports: see HPI. EENTM: Reports: no symptoms. Respiratory: Reports: no symptoms. Cardiovascular: Reports: no symptoms. GI: Reports: no symptoms. Genitourinary: Reports: no symptoms. Musculoskeletal: Reports: see HPI. Skin: Reports: no symptoms. Neurological/Psychological: Reports: see HPI. Hematologic/Endocrine: Reports: no symptoms. Immunologic/Allergic: Reports: no symptoms. All Other Systems: Reviewed and Negative (Gail ANDERSON,Magdalena Amato) Physical Exam Physical Exam General Appearance: well developed/nourished, no apparent distress, alert, awake Head: atraumatic, normal appearance Eyes: Bilateral: normal appearance, PERRL, EOMI. Ears, Nose, Throat: normal pharynx, hearing grossly normal Neck: normal inspection, supple, full range of motion, mild cervical spine tenderness without deformity Respiratory: normal breath sounds, no respiratory distress, lungs clear Cardiovascular: regular rate/rhythm Gastrointestinal: normal bowel sounds, soft, generalized tenderness without gaurding Back: lumbar spine tenderness, no deformity Extremities: normal range of motion, tenderness to anterior bilateral hips, no pain with passive ROM Neurologic/Psych: awake, alert, pool table mechanic II-XII nml as tested Skin: intact, normal color, warm/dry Core Measures ACS in differential dx? No CVA/TIA Diagnosis: No Sepsis Present: No Sepsis Focused Exam Completed? No (Gail ANDERSON,Magdalena Amato) Progress Differential Diagnoses I considered the following diagnoses in my evaluation of the patient: [ dehydration, electrolyte abnormality, seizure, malignancy, fracture, UTI, CVA] Plan of Care: Orders Procedure Date/time Status Heart Healthy Diet 11/10 B Active PT Evaluate & Treat 11/10 917 Active CASE MANAGEMENT CONSULT 11/10 917 Active URINE DRUG SCREEN FOR ER ONLY 11/09 141 Complete URINALYSIS 11/09 141 Complete TROPONIN LEVEL 11/09 141 Complete COMPREHENSIVE METABOLIC PANEL 11/09 141 Complete CBC WITHOUT DIFFERENTIAL 11/09 141 Complete EKG 11/09 1415 Active Laboratory Tests 11/09/17 1800: Urine Opiates Screen < 100, Methadone Screen 51, Barbiturate Screen < 60, Ur Phencyclidine Scrn < 6.00, Amphetamines Screen < 100, U Benzodiazepines Scrn < 85, Urine Cocaine Screen < 50, Urine Cannabis Screen < 5.00, Urine Color YEL, Urine Clarity HAZY H, Urine pH 6.5, Ur Specific [place] 1.020, Urine Protein NEG, Urine Ketones 15 H, Urine Nitrite NEG, Urine Bilirubin NEG, Urine Urobilinogen 1.0, Ur Leukocyte Esterase TRACE H, Ur Microscopic SEDIMENT EXAMINED, Urine RBC RARE, Urine WBC 1-3 H, Ur Epithelial Cells FEW, Urine Crystals 1+ CA OX H, Urine Bacteria FEW H, Urine Mucus FEW, Urine Hemoglobin NEG, Urine Glucose NEG 11/09/17 1525: Anion Gap 3 L, Estimated GFR > 60, BUN/Creatinine Ratio 14.0, Glucose 113 H, Calcium 8.7, Total Bilirubin 0.5, AST 61 H, ALT 61 H, Alkaline Phosphatase 50, Troponin I 0.01, Total Protein 5.4 L, Albumin 2.9 L, Globulin 2.5, Albumin/ Globulin Ratio 1.2, CBC w Diff NO MAN DIFF REQ, RBC 4.45, MCV 91.0, MCH 30.7, MCHC 33.8, RDW 15.7 H, MPV 8.1, Gran % 62.1, Lymphocytes % 31.6, Monocytes % 5.7, Eosinophils % 0.4, Basophils % 0.2, Absolute Granulocytes 2.5, Absolute Lymphocytes 1.3, Absolute Monocytes 0.2, Absolute Eosinophils 0, Absolute Basophils 0 Patient medicated with fluid bolus for her hypotension, possible dehydration due to lack of oral intake. Labs show mild hyponatremia. Patient's head and c-spine CT are stable. Given abdominal tenderness we'll obtain an abdominal CT scan and also evaluate pelvis given the patient's hip tenderness. The patient was ambulated with assistance from MST and RN to the restroom. When walking back to her room with assistance from the RN patient nearly collapsed and was holding onto the RN for support. Patient was assisted by using a wheelchair support. She typically ambulates with a walker at baseline. The patient was signed out to Dr. Jasso pending UA and CT scan. Patient may require additional rehabilitation stay given her difficulty with ambulation here in the emergency department. Diagnostic Imaging: Viewed by Me: Radiology Read, CT Scan. Discussed w/RAD: Radiology Read, CT Scan. Radiology Impression: PATIENT: HARRIS SANTAMARIA PRESENT AGE: 82 PATIENT ACCOUNT NO: [id number] : 33 LOCATION: [facility] [place] ORDERING PHYSICIAN: Magdalena ANDERSON SERVICE DATE: 11/09/17 EXAM TYPE: CAT - CT CERV SPINE WO IV CONTRAST; CT HEAD WO IV CONTRAST EXAMINATION: CT HEAD WITHOUT CONTRAST CT CERVICAL SPINE WITHOUT CONTRAST CLINICAL INFORMATION: Fall. Possible seizure. COMPARISON: CT head 10/16/2017 TECHNIQUE: Imaging was performed from the skull base to vertex without intravenous administration of contrast. In addition, helical noncontrast CT imaging was acquired through the cervical spine and source images were reviewed along with axial reconstructions and sagittal and coronal MPRs. DLP: 851.78 mGy-cm FINDINGS: HEAD: No intracranial mass, hemorrhage, or midline shift is visualized. There is atrophy with prominence of the ventricles and the sulci and hypodensity of the periventricular white matter due to chronic small vessel ischemic disease. There is vascular calcifications of the internal carotid arteries bilaterally. No extra-axial collections are identified. The paranasal sinuses and mastoid air cells are well aerated. CERVICAL SPINE: There is no evidence of acute cervical spine fracture. Vertebral bodies remain normal in height. Cervical vertebrae have normal alignment. There is multilevel degenerative spondylosis of the cervical spine with disc height narrowing and endplate spurs and facet joint arthrosis The thyroid is heterogeneous and lobular in contour with multiple low attenuating nodules. ( The thyroid has been previously assessed on 03/22/2017. A thyroid biopsy was performed on 04/09/2017.) There is vascular wall calcification of the carotid arteries at the carotid artery bifurcation bilaterally. Limited assessment of the lung apices is unremarkable. IMPRESSION: 1. No acute intracranial pathology. 2. No CT evidence of acute cervical spine fracture or traumatic subluxation DICTATED BY: Brent Oneill MD DATE/TIME DICTATED:11/09/171527 MAGNETIC LOCATER:LINN DATE/TIME TRANSCRIBED:1527 CONFIDENTIAL, DO NOT COPY WITHOUT APPROPRIATE AUTHORIZATION. < Electronically signed in Other Vendor System> SIGNED BY: Brent Oneill MD 1536, PATIENT: HARRIS SANTAMARIA PRESENT AGE: 82 PATIENT ACCOUNT NO: [id number] : 33 LOCATION: [facility] [place] ORDERING PHYSICIAN: Magdalena ANDERSON SERVICE DATE: 11/09/17 EXAM TYPE: RAD - XRY-CHEST XRAY, TWO VIEWS EXAMINATION: XR CHEST CLINICAL INFORMATION: Syncope/seizure. History of falls. COMPARISON: CXR from 10/16/[address] from 04/17/2017. TECHNIQUE: 2 views of the chest were obtained. FINDINGS: Lungs are well expanded. There is wall calcification of the bronchial tree - relatively common finding in elderly patients. Several small pulmonary nodules are seen, but these are more clearly defined on the prior chest CT exam of 04/17/2017. No acute focal interstitial infiltrate, consolidation or pleural effusion. Cardiac silhouette remains normal in size. The hilar contours are normal. There is atherosclerotic calcification of the aorta. The bones are diffusely osteoporotic. The hemangioma the T9 vertebral body is more clearly seen on the prior chest CT exam. Old, mild compression deformity of the L1 vertebral body. No acute findings in the degenerated spine. IMPRESSION: No acute pulmonary disease compared to 04/17/2017. DICTATED BY: Stone Butler MD DATE/TIME DICTATED:11/09/171515 MAGNETIC LOCATER:LINN DATE/TIME TRANSCRIBED:1515 CONFIDENTIAL, DO NOT COPY WITHOUT APPROPRIATE AUTHORIZATION. < Electronically signed in Other Vendor System> SIGNED BY: Stone Butler MD 11/09/17 1523 Initial ED EKG: sinus rhythm @75bpm, nonspecific ST changes Prior EKG: unchanged (10/15/17) Hand-Off Endorsed To: Tanner Jasso MD Endorsed Time: 1800 Pending: CT, labs (Gail ANDERSON,Magdalena Amato) Comments: 11/09/2017 6:12:00 PM patient signed out to mo by MONICA at shift liner roll changer. CT scan and urinalysis pending. 11/09/2017 7:25:56 PM patient signed out to Dr. Joshi at shift liner roll changer. Patient to be evaluated by physical therapy and case management in the morning for disposition. (Tanner Jasso MD) Radiology Impression: PATIENT: HARRIS SANTAMARIA PRESENT AGE: 82 PATIENT ACCOUNT NO: [id number] : 33 LOCATION: [facility] [place] ORDERING PHYSICIAN: Magdalena ANDERSON SERVICE DATE: 11/09/17894 EXAM TYPE: CAT - CT CERV SPINE WO IV CONTRAST; CT HEAD WO IV CONTRAST EXAMINATION: CT HEAD WITHOUT CONTRAST CT CERVICAL SPINE WITHOUT CONTRAST CLINICAL INFORMATION: Fall. Possible seizure. COMPARISON: CT head 10/16/2017 TECHNIQUE: Imaging was performed from the skull base to vertex without intravenous administration of contrast. In addition, helical noncontrast CT imaging was acquired through the cervical spine and source images were reviewed along with axial reconstructions and sagittal and coronal MPRs. DLP: 851.78 mGy-cm FINDINGS: HEAD: No intracranial mass, hemorrhage, or midline shift is visualized. There is atrophy with prominence of the ventricles and the sulci and hypodensity of the periventricular white matter due to chronic small vessel ischemic disease. There is vascular calcifications of the internal carotid arteries bilaterally. No extra-axial collections are identified. The paranasal sinuses and mastoid air cells are well aerated. CERVICAL SPINE: There is no evidence of acute cervical spine fracture. Vertebral bodies remain normal in height. Cervical vertebrae have normal alignment. There is multilevel degenerative spondylosis of the cervical spine with disc height narrowing and endplate spurs and facet joint arthrosis The thyroid is heterogeneous and lobular in contour with multiple low attenuating nodules. ( The thyroid has been previously assessed on 03/22/2017. A thyroid biopsy was performed on 04/09/2017.) There is vascular wall calcification of the carotid arteries at the carotid artery bifurcation bilaterally. Limited assessment of the lung apices is unremarkable. IMPRESSION: 1. No acute intracranial pathology. 2. No CT evidence of acute cervical spine fracture or traumatic subluxation DICTATED BY: Brent Oneill MD DATE/TIME DICTATED:11/09/171527 MAGNETIC LOCATER:LINN DATE/TIME TRANSCRIBED:1527 CONFIDENTIAL, DO NOT COPY WITHOUT APPROPRIATE AUTHORIZATION. < Electronically signed in Other Vendor System> SIGNED BY: Brent Oneill MD 1536, PATIENT: HARRIS SANTAMARIA PRESENT AGE: 82 PATIENT ACCOUNT NO: [id number] : 33 LOCATION: [facility] [place] ORDERING PHYSICIAN: Magdalena ANDERSON SERVICE DATE: 11/09/17 EXAM TYPE: RAD - XRY-CHEST XRAY, TWO VIEWS EXAMINATION: XR CHEST CLINICAL INFORMATION: Syncope/seizure. History of falls. COMPARISON: CXR from 10/16/[address] from 04/17/2017. TECHNIQUE: 2 views of the chest were obtained. FINDINGS: Lungs are well expanded. There is wall calcification of the bronchial tree - relatively common finding in elderly patients. Several small pulmonary nodules are seen, but these are more clearly defined on the prior chest CT exam of 04/17/2017. No acute focal interstitial infiltrate, consolidation or pleural effusion. Cardiac silhouette remains normal in size. The hilar contours are normal. There is atherosclerotic calcification of the aorta. The bones are diffusely osteoporotic. The hemangioma the T9 vertebral body is more clearly seen on the prior chest CT exam. Old, mild compression deformity of the L1 vertebral body. No acute findings in the degenerated spine. IMPRESSION: No acute pulmonary disease compared to 04/17/2017. DICTATED BY: Stone Butler MD DATE/TIME DICTATED:11/09/171515 MAGNETIC LOCATER:LINN DATE/TIME TRANSCRIBED:1515 CONFIDENTIAL, DO NOT COPY WITHOUT APPROPRIATE AUTHORIZATION. < Electronically signed in Other Vendor System> SIGNED BY: Stone Butler MD 11/09/17 1523, PATIENT: HARRIS SANTAMARIA PRESENT AGE: 82 PATIENT ACCOUNT NO: [id number] : 33 LOCATION: [facility] ORDERING PHYSICIAN: Magdalena ANDERSON SERVICE DATE: 11/09/17 EXAM TYPE: CAT - CT ABD & PELVIS W/O IV CONTRAS EXAMINATION: CT ABDOMEN AND PELVIS WITHOUT CONTRAST CLINICAL INFORMATION: Seizure with fall. Abdominal and back pain. Hip pain. History of pancreatic cancer. COMPARISON: CT abdomen pelvis 10/16/2017 TECHNIQUE : Multidetector volumetric imaging was performed from the superior aspect of the liver through the pubic symphysis. Sagittal and coronal reformatted images were obtained on the technologist's workstation. DLP: 228 mGy-cm FINDINGS: Several bilateral pulmonary nodules are again demonstrated within the lung bases. Coronary artery calcifications are incompletely visualized. Tiny amount of pericardial fluid is noted. Similar diffusely decreased liver attenuation. The gallbladder is not clearly visualized. Tiny amount of perihepatic ascites again noted. No gross intrahepatic biliary ductal dilatation. Previously visualized pneumobilia not appreciated on today's imaging. 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 The spleen, adrenal glands and kidneys are unremarkable. Normal caliber loops of small and large bowel. Mild-to- moderate stool burden throughout the colon, particularly the rectum. The abdominal aorta is ectatic and demonstrates moderate to severe atherosclerotic disease. The bladder is decompressed and therefore not accurately evaluated. No gross free pelvic fluid. Mild diffuse anasarca. Suspected mild mesenteric edema. Diffuse osteopenia. Diffuse degenerative changes of the spine. Similar old left 12th rib fracture. Similar hardware noted at the L4/L5 spinous process interspace. Similar mild compression deformity of the L1 vertebral body. IMPRESSION: Stable examination. No evidence for acute abnormality within the abdomen or pelvis. Chronic changes as detailed above. DICTATED BY: Seng Lacy MD DATE/TIME DICTATED:11/09/171842 MAGNETIC LOCATER:LINN DATE/TIME TRANSCRIBED:11/09/171842 CONFIDENTIAL, DO NOT COPY WITHOUT APPROPRIATE AUTHORIZATION. <Electronically signed in Other Vendor System> SIGNED BY: Seng Lacy MD 11/09/171855 (Adi JEAN,Angus Mireles) Comments: Case management and physical therapy evaluation recommended readmission to a short-term rehabilitation facility. Patient is unsteady of gait. She has a risk to fall. After conversation and [place] with a diversified crops ii farmworker, patient appears to have decision-making capacity. She was alert and oriented to place, situation and time with the exception of year. Patient was quite aware of the risk of fall and her concern for injury such as intracranial bleeding, fracture of bones. Patient was recently discharged from short-term rehabilitation. While there, patient apparently fell 4 times with head injury. She lost weight due to lack of appetite and food that was palatable. Daughter is present. She wishes to take the patient home. Patient signed out AGAINST MEDICAL ADVICE knowing the risks of leaving. Again, patient appears to have decision-making capacity at this time. I had conversation at length regarding medical power of wing coverer which is not currently in place. Daughter will seek legal advice to establish a medical power of wing coverer. Patient will be discharged AGAINST MEDICAL ADVICE at this time. (Edi JEAN, Daniel) Departure Departure Disposition: STILL A PATIENT Condition: Stable Clinical Impression Primary Impression: Seizure-like activity Secondary Impressions: Back pain, Decreased appetite, Weakness Referrals: Roshan JEAN,Jaime Ridley (PCP/Family) Departure Forms: Customer Survey General Discharge Information (Gail ANDERSON,Magdalena Amato) Departure Comments 11/09/17, 20:10pm.... discussed at length with patient and family... pt has unsteady gait and is a fall risk, recently came home [facility], requires PT consult and case management to effect a safe discharge. pt to be signed out to dr. palmer 11/10/17, 7am. (Adi JEAN,Angus Mireles) Critical Care Note Critical Care Note Critical Care Time: non-applicable (Gail ANDERSON,Magdalena Amato)
--- NOTE | 2017-11-09 18:56 | CT SCAN REPORT ---
EXAMINATION: CT ABDOMEN AND PELVIS WITHOUT CONTRAST CLINICAL INFORMATION: Seizure with fall. Abdominal and back pain. Hip pain. History of pancreatic cancer. COMPARISON: CT abdomen pelvis 10/16/2017 TECHNIQUE: Multidetector volumetric imaging was performed from the superior aspect of the liver through the pubic symphysis. Sagittal and coronal reformatted images were obtained on the technologist's workstation. DLP: 228 mGy-cm FINDINGS: Several bilateral pulmonary nodules are again demonstrated within the lung bases. Coronary artery calcifications are incompletely visualized. Tiny amount of pericardial fluid is noted. Similar diffusely decreased liver attenuation. The gallbladder is not clearly visualized. Tiny amount of perihepatic ascites again noted. No gross intrahepatic biliary ductal dilatation. Previously visualized pneumobilia not appreciated on today's imaging. 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 The spleen, adrenal glands and kidneys are unremarkable. Normal caliber loops of small and large bowel. [id number] stool burden throughout the colon, particularly the rectum. The abdominal aorta is ectatic and demonstrates moderate to severe atherosclerotic disease. The bladder is decompressed and therefore not accurately evaluated. No gross free pelvic fluid. Mild diffuse anasarca. Suspected mild mesenteric edema. Diffuse osteopenia. Diffuse degenerative changes of the spine. Similar old left 12th rib fracture. Similar hardware noted at the L4/L5 spinous process interspace. Similar mild compression deformity of the L1 vertebral body. IMPRESSION: Stable examination. No evidence for acute abnormality within the abdomen or pelvis. Chronic changes as detailed above.
[2017-11-10 11:45] VITALS: BP 106/62
== END 2017-11-10 12:59 | disposition left against medical advice (07) ==
LOC: ERH 13:41
PROVIDERS: Physician Assistant
DX: R56.9 Unspecified convulsions (principal); M54.9 Dorsalgia, unspecified; R63.0 Anorexia; R53.1 Weakness; M54.5 Low back pain; M25.559 Pain in unspecified hip; I10 Essential (primary) hypertension
CPT/HCPCS: 71046; 74176; 80307; 81001; 93005; 93010; 97116-GP; 97161-GP; 97530-GP; G8978-GP; G8979-GP; J7040